=== PATIENT | male | born 1965 | race Caucasian/White ===

== ENCOUNTER → 2018-10-29 11:26 | Outpatient (CLI) | payer BC, SELFPAY ==
[2018-10-29 14:21] LABS: Basophils # 0.1 K/mm3 (0-0.2); Basophils % 0.6 % (0.1-2.0); Eosinophils # 0.1 K/mm3 (0.0-0.4); Eosinophils % 1.2 % (0.1-12.0); Hematocrit 44.9 % (42.0-52.0); Hemoglobin 14.6 g/dL (14.1-18.0); Lymphocytes # 2.6 K/mm3 (0.7-4.5); Mean Corpuscular HGB Conc 32.6 g/dL (31.8-35.4); Mean Corpuscular Hemoglobin 26.1 pg (27.0-31.2); Mean Corpuscular Volume 80.1 fl (80-94); Mean Platelet Volume 7.4 fl (7.4-10.4); Monocytes # 0.5 K/mm3 (0.1-1.0); Monocytes % 4.9 % (1.7-9.3); Neutrophils # 6.3 K/mm3 (1.8-7.8); Neutrophils % 66.2 % (37.0-80.0); Platelet Count 350 K/mm3 (142-424); White Blood Count 9.5 K/mm3 (4.8-10.8)
[2018-10-29 14:26] LABS: Alanine Aminotransferase 67 U/L (12-78); Albumin Level 4.3 gm/dL (3.4-5.0); Albumin/Globulin Ratio 1.1 (1.1-1.8); Alkaline Phosphatase 97 U/L (46-116); Anion Gap 14.9 mEq/L (5-15); Aspartate Amino Transferase 24 U/L (15-37); Bilirubin,Total 0.6 mg/dL (0.2-1.0); Blood Urea Nitrogen 16 mg/dL (7-18); Calcium 9.3 mg/dL (8.5-10.1); Carbon Dioxide 28 mmol/L (21.0-32.0); Chloride 103 mmol/L (98-107); Chol/HDL Ratio 3.1 (1-3.5); Cholesterol 116 mg/dL (140-200); Creatinine,Serum 1.19 mg/dL (0.70-1.30); Estimated Glomerular Filt Rate 63 ml/min (>60); GFR (African American) 77 ML/MIN (>60); Globulin 3.8 gm/dl (1.3-3.2); Glucose 105 mg/dL (74-106); HDL Cholesterol 38 mg/dL (27-67); LDL Cholesterol 52 mg/dL (0-130); Potassium 4.9 mmoL/L (3.5-5.1); Sodium 141 mmol/L (136-145); Thyroid Stimulating Hormone 1.67 uIU/ml (0.358-3.740); Total Protein,Serum 8.1 gm/dL (6.4-8.2); Triglycerides 128 mg/dL (30-200); VLDL Cholesterol 26 mg/dL (0-40)
[2018-10-29 14:42] LABS: Troponin I < 0.02 ng/ml (0.00-0.06)
[2018-10-31 21:30] LABS: Vitamin B12 734 pg/mL (232-1245)
[2018-11-01 10:53] LABS: Vitamin D 25 Hydroxy 40.1 ng/mL (30.0-100.0)
== END ==
PROVIDERS: PCP Nurse Practitioner Family; Visit Provider Nurse Practitioner Family
DX: Z00.00 Encounter for general adult medical examination without abnormal findings (principal); R07.9 Chest pain, unspecified; R53.83 Other fatigue; I10 Essential (primary) hypertension
CPT/HCPCS: 80053; 80061; 82607; 82652; 84443; 84484; 85025

== ENCOUNTER → 2019-05-31 09:30 | Outpatient (CLI) | payer BC, SELFPAY ==
[2019-05-31 11:38] LABS: Ferritin 132 ng/mL (8-388)
== END ==
PROVIDERS: Visit Provider Nurse Practitioner Family
DX: E83.10 Disorder of iron metabolism, unspecified (principal); G47.33 Obstructive sleep apnea (adult) (pediatric)
CPT/HCPCS: 36415; 82728

== ENCOUNTER → 2020-03-07 07:02 | Outpatient (CLI) | payer BC, SELFPAY ==
[2020-03-07 14:26] LABS: Chloride 106 mmol/L (98-107); Sodium 140 mmol/L (136-145)
[2020-03-07 14:27] LABS: Potassium 4.4 mmoL/L (3.5-5.1)
[2020-03-07 14:29] LABS: Alanine Aminotransferase 47 U/L (12-78); Albumin Level 4.1 g/dl (3.5-5.0); Albumin/Globulin Ratio 1.4 (1.1-1.8); Alkaline Phosphatase 77 U/L (38-126); Anion Gap 14.4 mEq/L (5-15); Aspartate Amino Transferase 33 U/L (17-59); Bilirubin,Total 0.4 mg/dl (0.2-1.3); Blood Urea Nitrogen 17 mg/dl (9-20); Carbon Dioxide 24 mmol/L (22.0-30.0); Cholesterol 121 mg/dl (140-200); Estimated Glomerular Filt Rate 87 ml/min (>60); GFR (African American) 106 ML/MIN (>60); Total Protein,Serum 7.1 g/dl (6.3-8.2); Triglycerides 152 mg/dl (30-150); VLDL Cholesterol 30 mg/dL (0-40)
[2020-03-07 14:30] LABS: Calcium 9.2 mg/dl (8.4-10.2); Chol/HDL Ratio 3.7 (1-3.5); Glucose 116 mg/dl (74-100); HDL Cholesterol 33 mg/dl (40-60)
[2020-03-07 14:39] LABS: Basophils # 0.1 K/mm3 (0-0.2); Basophils % 0.9 % (0.1-2.0); Eosinophils # 0.2 K/mm3 (0.0-0.4); Eosinophils % 2.8 % (0.1-12.0); Hematocrit 41.1 % (42.0-52.0); Lymphocytes # 2.8 K/mm3 (0.7-4.5); Lymphocytes % 39.8 % (10-50); Mean Corpuscular HGB Conc 34.1 g/dL (31.8-35.4); Mean Corpuscular Volume 82.1 fl (80-94); Mean Platelet Volume 8.6 fl (7.4-10.4); Monocytes # 0.4 K/mm3 (0.1-1.0); Monocytes % 5.1 % (1.7-9.3); Neutrophils # 3.6 K/mm3 (1.8-7.8); Neutrophils % 51.5 % (37.0-80.0); Platelet Count 336 K/mm3 (142-424); Red Blood Count 5.01 M/mm3 (4.60-6.20); Red Cell Distribution Width 13.9 % (11.5-17.5)
[2020-03-07 14:40] LABS: Direct LDL Cholesterol 63.19 mg/dL (100-129)
[2020-03-07 14:58] LABS: Thyroid Stimulating Hormone 1.82 uIU/mL (0.465-4.68)
[2020-03-07 16:08] LABS: 25-OH Vitamin D, Total 31.3 ng/mL (30-100)
[2020-03-08 14:46] LABS: Hemoglobin A1C 5.8 % (4.0-6.0)
[2020-03-09 14:15] LABS: Vitamin B12 711 pg/mL (232-1245)
== END ==
PROVIDERS: Visit Provider Nurse Practitioner Family
DX: R53.83 Other fatigue (principal); E78.2 Mixed hyperlipidemia
CPT/HCPCS: 36415; 80053; 80061; 82306; 82607; 83036; 84443; 85025

== ENCOUNTER → 2020-03-08 07:11 | Outpatient (CLI) | payer BC, SELFPAY ==
--- NOTE | 2020-03-08 | CA_ITS ---
APPROVED REPORT Exam: Exercise Treadmill Technologist: Radha Siddiqui, Ht: 6 ft 2 in Wt: 218 lbs BSA: 2.25 m2 HR: 53 bpm BP: 137/73 mmHg Rhythm: SINUS BRADYCARDIA,RAD,ST-T ABNS IN III AND aVF Medical History Medical History: HTN, Hyperlipidemia Medications: Amlodipine,,,,, Asa,,,,, Atorvastatin,,,,, Fexofenadine,,,,, Allergies: CONTRAST MEDIA Cardiac Risk Factors: HTN, Hyperlipidemia, FHX of CAD Stress Test Details Test: Ze HR Resting HR: 72 bpm Max Heart Rate (APMHR): 164 bpm Max HR Achieved: 157 bpm Target HR (85% APMHR): 139 bpm % of APMHR: 95 Recovery HR: 124 bpm BP Resting BP: 137.0/73.0 mmHg Max BP: 210.0/70.0 mmHg Recovery BP: 208.0/76.0 mmHg ECG Resting ECG: SINUS BRADYCARDIA,RAD,ST-T ABNS IN III AND aVF Clinical Exercise duration: 10:01 min Highest Stage Achieved: Exercise capacity: 12.8 METs Stress ECG Conclusion PATIENT EXERCISED 10:00 ON EZ PROTOCOL WITH MAX HEART RATE 142 BPM WHICH IS 87% OF PM FOR AGE. MAX BP 210/70. METS = 12.8. TEST STOPPED DUE TO SOA AND FATIGUE. NO CHEST PAIN. OCCASIONAL PAC. ONE RUN OF NONSUSTAINED SVT IN RECOVERY. APPROX 1-1.[address] DEPRESSION LATERALLY. BORDERLINE POSITIVE EKG CHANGES FOR ISCHEMIA. MYOVIEW IMAGES REPORTED SEPARATELY. Test Summary REST . . . . . . . Standing REST . . . . . . . Sitting REST 04:42 0.0 0.0 72 . 137/ 73 . . Stage 1 01:00 10.0 1.7 91 . . . . Stage 1 02:00 10.0 1.7 88 . . . . Stage 1 03:00 10.0 1.7 90 . 150/ 70 . . Stage 2 01:00 12.0 2.5 99 . . . . Stage 2 02:00 12.0 2.5 102 . . . . Stage 2 03:00 12.0 2.5 109 . 165/ 65 . . Stage 3 01:00 14.0 3.4 119 . . . . Stage 3 02:00 14.0 3.4 124 . . . . Stage 3 . . . . . . . Cardiolite injected Stage 3 03:00 14.0 3.4 127 . 210/ 70 . . Stage 4 01:00 16.0 4.2 142 . . . . Stage 4 01:01 16.0 4.2 142 . . . Stop exercise at 10:01 RECOVERY 01:00 0.0 0.0 115 . 208/ 76 . . RECOVERY 02:00 0.0 0.0 82 . 208/ 76 . . RECOVERY 03:00 0.0 0.0 72 . 173/ 71 . . RECOVERY 04:00 0.0 0.0 70 . 146/ 72 . . RECOVERY 05:00 0.0 0.0 66 . 146/ 72 . . RECOVERY 05:22 0.0 0.0 67 . 132/ 74 . . Electronically signed by : Irvin Arevalo, 03/08/2020 14:11:24
--- NOTE | 2020-03-08 07:16 | NM_ITS ---
APPROVED REPORT Exam: Nuclear Stress Test Indication: short of breath..fatigue Patient Location: Outpatient Stress Tech: Zeinab Artur [place] Tech:Alejandrina Key MARY ANNE RT(R)(N) Ht: 6 ft 2 in Wt: 218 lbs HR: 53 bpm BP: 137/73 mmHg BSA: 2.25 m2 BMI: 27.9 History: short of breath..fatigue Procedure: Patient exercised on Ze protocol 10.0 minutes and sec, resting heart rate 53 bpm, resting blood pressure 137/73 mmHg, with exercise maximum heart rate achived was 157 bpm which is Greater than 85 % of the maximum predicted heart rate and blood pressure was 208/76 mmHg. Patient denied any complaint of chest pain. Patient has good exercise capacity, achieved 12.8 METs of workload on treadmill, the blood pressure response to exercise was Hypertensive. Electrocardiogram Resting electrocardiogram showed sinus rhythm, with exercise there is [address] segment depression noted from the baseline EKG. The EKG portion of the exercise Myoview is positive for ischemia. Cardiac Stress and Resting SPECT Images: Cardiac Stress and Resting SPECT images were obtained using technetium 99m Myoview 31.3 mCi stress and 10.78 mCi at rest. Gated SPECT with analysis of segmental wall motion and calculation of the ejection fraction also done. Cardiac stress and resting SPECT images show a mild fixed defect in the inferior wall with normal coronary gated SPECT is likely secondary to soft tissue attenuation, no reversible ischemia seen. Computer derived ejection fraction is 51% with no regional wall motion abnormality, right ventricle is normal size and contractility. Conclusion: 1. The EKG portion of the exercise Myoview is positive for ischemia, patient has good exercise capacity achieved 12.8 mets of workload on treadmill, the blood pressure response to exercise was hypertensive, there was no exercise-induced chest discomfort. 2. No scintigraphic evidence of reversible ischemia seen at this level of exercise, computer derived ejection fraction is 51% with no regional wall motion abnormality, right ventricle is normal size and contractility. Electronically signed by : Irvin Arevalo, 03/08/2020 14:15:31
--- NOTE | 2020-03-08 12:44 | HMH.ITSHM ---
Current Home Medications as stated by this patient Anshul Luciano or international account representative. [] amlodipine atorvastatin asa
== END ==
PROVIDERS: PCP Internal Medicine Adolescent Medicine; Visit Provider Nurse Practitioner Family
DX: R06.02 Shortness of breath (principal); R53.83 Other fatigue
CPT/HCPCS: 78452; 93017; A9502

== ENCOUNTER → 2020-05-29 07:42 | Outpatient (CLI) | payer BC, SELFPAY ==
[2020-05-29 07:57] LABS: Basophils # 0.1 K/mm3 (0-0.2); Eosinophils # 0.2 K/mm3 (0.0-0.4); Eosinophils % 2.9 % (0.1-12.0); Hematocrit 43.4 % (42.0-52.0); Hemoglobin 14.3 g/dL (14.1-18.0); Lymphocytes # 2.4 K/mm3 (0.7-4.5); Lymphocytes % 39.5 % (10-50); Mean Corpuscular HGB Conc 32.9 g/dL (31.8-35.4); Mean Corpuscular Hemoglobin 27.5 pg (27.0-31.2); Mean Corpuscular Volume 83.6 fl (80-94); Mean Platelet Volume 7.5 fl (7.4-10.4); Monocytes # 0.3 K/mm3 (0.1-1.0); Monocytes % 4.8 % (1.7-9.3); Neutrophils # 3.2 K/mm3 (1.8-7.8); Neutrophils % 51.7 % (37.0-80.0); Platelet Count 313 K/mm3 (142-424); Red Cell Distribution Width 14.2 % (11.5-17.5); White Blood Count 6.2 K/mm3 (4.8-10.8)
[2020-05-29 08:57] LABS: Alanine Aminotransferase 47 U/L (12-78); Albumin Level 4.4 g/dl (3.5-5.0); Albumin/Globulin Ratio 1.4 (1.1-1.8); Alkaline Phosphatase 80 U/L (38-126); Aspartate Amino Transferase 34 U/L (17-59); Bilirubin,Total 0.6 mg/dl (0.2-1.3); Blood Urea Nitrogen 15 mg/dl (9-20); Calcium 9.6 mg/dl (8.4-10.2); Carbon Dioxide 27 mmol/L (22.0-30.0); Chloride 106 mmol/L (98-107); Chol/HDL Ratio 3.3 (1-3.5); Cholesterol 122 mg/dl (140-200); Estimated Glomerular Filt Rate 77 ml/min (>60); GFR (African American) 94 ML/MIN (>60); Globulin 3.1 g/dL (1.3-3.2); Glucose 111 mg/dl (74-100); HDL Cholesterol 37 mg/dl (40-60); Sodium 142 mmol/L (136-145); Total Protein,Serum 7.5 g/dl (6.3-8.2); Triglycerides 113 mg/dl (30-150); VLDL Cholesterol 23 mg/dL (0-40)
[2020-05-29 09:08] LABS: Direct LDL Cholesterol 64.54 mg/dL (100-129)
[2020-05-29 09:13] LABS: 25-OH Vitamin D, Total 37.9 ng/mL (30-100)
[2020-05-29 09:14] LABS: Free T4 (Free Thyroxine) 0.81 ng/dl (0.78-2.19)
[2020-05-29 09:29] LABS: Prostate Specific Ag Screen 1.1 ng/ml (0.0-4.0); Thyroid Stimulating Hormone 1.81 uIU/mL (0.465-4.68)
[2020-05-29 09:40] LABS: Hemoglobin A1C 5.6 % (4.0-6.0)
[2020-05-29 09:46] LABS: Vitamin B12 785 pg/mL (239-931)
[2020-05-29 09:58] LABS: Iron 62 ug/dL (49-181)
[2020-05-29 10:07] LABS: Total Iron Binding Capacity 353 ug/dL (261-462)
== END ==
PROVIDERS: Visit Provider Physician Assistant Medical
DX: R06.02 Shortness of breath (principal)
CPT/HCPCS: 36415; 80053; 80061; 82306; 82607; 83036; 83540; 83550; 84439; 84443; 85025; G0103

== ENCOUNTER → 2020-06-29 15:00 | Outpatient (CLI) | payer BC, SELFPAY | PROVIDERS: PCP Internal Medicine Adolescent Medicine; Visit Provider Specialist | DX: G47.33 Obstructive sleep apnea (adult) (pediatric) (principal) | CPT/HCPCS: G0399 ==

== ENCOUNTER 2023-09-28 10:46 | Emergency (ER) | payer BC, SELFPAY ==
--- NOTE | 2023-09-28 11:34 | ED_ITS ---
Discharge Plan Disposition Patient Disposition: Home, Self-Care Condition: Good Prescriptions Prescriptions: New azithromycin [Zithromax] 250 mg tablet 250 mg PO UD DOSE PK Qty: 6 0RF Rx Instructions: Take two (2) tablets today, then one (1) tablet days #2 thru #5 benzonatate [benzonatate] 100 mg capsule 100 mg PO TIDP PRN (Reason: Cough) Qty: 30 0RF methylprednisolone 4 mg Tablets,Dose Pack 4 mg PO DIRECTED 6 Days Qty: 21 0RF Rx Instructions: Take 1 pack as directed for 6 days guaifenesin [Mucinex] 600 mg tablet extended release 12hr 600 - 1,200 mg PO BIDP PRN (Reason: Congestion) Qty: 30 0RF No Action fexofenadine [Shanti Allergy] 180 mg tablet 180 mg PO DAILY propranolol 10 mg tablet 10 mg PO TID PRN (Reason: blood pressure ) valsartan 320 mg tablet 320 mg PO DAILY multivitamin Tablet 1 tab PO DAILY psyllium husk [Metamucil] 0.4 gram capsule 0.4 g PO DAILY amlodipine 10 mg tablet 10 mg PO DAILY aspirin 81 mg tablet,delayed release (DR/EC) 81 mg PO DAILY vitamin E (dl, acetate) 180 mg (400 unit) capsule 180 mg PO DAILY Repatha SureClick 140 mg/mL pen injector 140 mg SQ Q2W Referrals Follow up/Referrals: Edmundo Crane [Primary Care Provider] - See instructions Activity Restrictions/Add. Instructions Additional Instructions/Restrictions: Drink plenty of fluids. Take tylenol or ibuprofen for pain or fever. Take the medications as directed. Follow up with your regular doctor. GO TO THE ER FOR ANY WORSENING SYMPTOMS Clinical Impressions Clinical Impression: Sinusitis, Acute viral syndrome Stand Alone Forms Stand Alone Forms: Work/School Release Instructions Patient Instructions: Sinusitis, DI for Sinusitis Discharge ED Provider: Faizan Bellamy [facility] [place] HPI General Stated complaint: congestion body aches, sore throat Time Seen by Provider: 09/28/23 11:34 History of Present Illness Provider Complaint: He states that for the past 2 days he has had sore throat, sinus congestion, body aches, chest congestion and malaise. Related Data Home Medications Medication Instructions Recorded Confirmed fexofenadine 180 mg tablet 180 mg PO DAILY 05/31/19 09/28/23 (Shanti Allergy) amlodipine 10 mg tablet 10 mg PO DAILY HTN 04/23/22 09/28/23 aspirin 81 mg tablet,delayed 81 mg PO DAILY 04/23/22 09/28/23 release evolocumab 140 mg/mL subcutaneous 140 mg SQ Q2W HLD 04/23/22 09/28/23 pen injector (Bradly Pedrozaick) multivitamin 1 tab PO DAILY 04/23/22 09/28/23 propranolol 10 mg tablet 10 mg PO TID PRN blood pressure 04/23/22 09/28/23 psyllium husk 0.4 gram capsule 0.4 g PO DAILY 04/23/22 09/28/23 (Metamucil) valsartan 320 mg tablet 320 mg PO DAILY HTN 04/23/22 09/28/23 vitamin E (dl, acetate) 180 mg 180 mg PO DAILY 04/23/22 09/28/23 (400 unit) capsule Previous Rx's Medication Instructions Recorded azithromycin 250 mg tablet 250 mg PO UD DOSE PK #6 tabs 09/28/23 (Zithromax) benzonatate 100 mg capsule 100 mg PO TIDP PRN Cough #30 caps 09/28/23 guaifenesin 600 mg tablet, 600 - 1,200 mg PO BIDP PRN 09/28/23 extended release 12 hr (Mucinex) Congestion #30 tabs methylprednisolone 4 mg tablets in 4 mg PO DIRECTED 6 days #21 tabs 09/28/23 a dose pack Allergies Allergy/AdvReac Type Severity Reaction Status Date / Time Iodinated Contrast Media Allergy Unknown Verified 09/28/23 11:57 [Iodinated Contrast- Oral and IV Dye] [facility] Disclaimer: The information contained in this section may have been updated after the patient was seen, as this information can be updated by other users. Medical History Hyperlipidemia Hypertension Family History Grandfather Cancer Social History Smoking Status: Never smoker alcohol intake: current substance use type: denies use current occupational status: employed Travel in the last 8 weeks: [place] the [place] household members: none housing: house ROS Obtained: Yes All systems reviewed & no additional complaints except as documented Constitutional Constitutional: Reports poor appetite Eyes Eyes: Reports system reviewed and no additional complaints, except as documented ENT Ears, Nose, Mouth, and Throat: Reports as per HPI Cardiovascular Cardiovascular: Reports system reviewed and no additional complaints, except as documented and Denies chest pain Respiratory Respiratory: Denies shortness of breath, Denies chest congestion, Reports cough, Denies stridor and Denies wheezing Gastrointestinal Gastrointestingal: Reports system reviewed and no additional complaints, except as documented; Denies abdominal pain, diarrhea or vomiting Musculoskeletal Musculoskeletal: Reports system reviewed and no additional complaints, except as documented and Denies arthralgias Integumentary/Breasts Skin/Breast: Reports system reviewed and no additional complaints, except as documented and Denies rash Neurologic Neurologic: Denies paresthesias Allergic/Immunologic Allergic/Immunologic: Denies wheezing Physical Exam General General appearance: alert and in no apparent distress Eye Eye exam: Present normal appearance, PERRL and EOMI ENT ENT exam: Present mucous membranes moist and normal external ear exam Expanded ENT Exam External ear exam: Present normal external inspection TM/Canal exam: Bilateral TM: erythema and bulging Nose exam: Absent sinus tenderness Nasal speculum exam: Bilateral: normal Mouth exam: Present normal external inspection; Absent drooling Teeth exam: Present normal inspection Throat exam: Present tonsillar erythema and tonsillomegaly Neck Neck exam: Present normal inspection, full ROM and trachea midline; Absent tenderness, lymphadenopathy or thyromegaly Chest Chest inspection: Present normal inspection and symmetric chest wall rise; Absent tenderness or rash Respiratory Respiratory exam: Present normal lung sounds bilaterally; Absent respiratory distress, wheezes, stridor or accessory muscle use Cardiovascular Cardiovascular exam: Present regular rate, normal rhythm and normal heart sounds Abdominal Exam Abdominal exam: Present soft; Absent distention, tenderness, guarding, rebound or rigidity Extremities Exam Extremities exam: Present normal inspection, full ROM and normal capillary refill; Absent tenderness or calf tenderness Back Exam Back exam: Present normal inspection and full ROM; Absent tenderness Neurological Exam Neurological exam: Present alert and oriented X3 Psychiatric Psychiatric exam: Present normal affect and normal mood Skin Skin exam: Present warm, dry, intact and normal color Lymphatic Lymphatic Findings: no adenopathy Medical Decision Making Medical Records Medical records reviewed: No I reviewed the patient's medical records. Vincent Inquiry Pt receiving controlled substance: No Lab Data Lab results reviewed: Yes I reviewed the patient's lab results.
[2023-09-28 11:40] VITALS: BP 150/82; PULSE 107; RESP 18; TEMP 36.7; O2SAT 98; BMI 29.0
[2023-09-28 12:04] LABS: UTC Influenza A Antigen Negative (Negative); UTC Strep Screen (Rapid) Negative (Negative)
[2023-09-28 12:05] LABS: UTC Influenza B Antigen Negative (Negative)
[2023-09-28 12:19] LABS: Coronavirus 19, PCR Not Detected (NotDetected); Influenza A, PCR Not Detected (NotDetected); Influenza B, PCR Not Detected (NotDetected)
[2023-09-28 12:33] VITALS: BP 150/82; PULSE 107; RESP 18; TEMP 36.7; O2SAT 98
== END 2023-09-28 12:33 | disposition home or self-care (01) ==
PROVIDERS: Emergency Provider Nurse Practitioner Family; PCP Internal Medicine
DX: J01.90 Acute sinusitis, unspecified (principal); R07.0 Pain in throat; R05.9 Cough, unspecified; R09.81 Nasal congestion; M79.18 Myalgia, other site; I10 Essential (primary) hypertension; E78.5 Hyperlipidemia, unspecified
CPT/HCPCS: 87636; 87804; 87880; 99204; 99212; G0463

== ENCOUNTER 2024-04-09 10:33 | Emergency (ER) | payer BC, SELFPAY ==
[2024-04-09 11:25] VITALS: BP 136/68; PULSE 92; RESP 20; TEMP 37.1; O2SAT 95; BMI 29.6
--- NOTE | 2024-04-09 11:35 | ED_ITS ---
Discharge Plan Disposition Patient Disposition: Home, Self-Care Condition: Good Prescriptions Prescriptions: No Action fexofenadine [Shanti Allergy] 180 mg tablet 180 mg PO DAILY propranolol 10 mg tablet 10 mg PO TID PRN (Reason: blood pressure ) valsartan 320 mg tablet 320 mg PO DAILY amlodipine 10 mg tablet 10 mg PO DAILY aspirin 81 mg tablet,delayed release (DR/EC) 81 mg PO DAILY Repatha SureClick 140 mg/mL pen injector 140 mg SQ Q2W Referrals Follow up/Referrals: Edmundo Crane [Primary Care Provider] - See instructions Activity Restrictions/Add. Instructions Additional Instructions/Restrictions: covid swab was sent to lab, call later today for results. self isolate until test results are known to be negative No sign of a bacterial infection. Likely viral. Viruses can take 7-14 days to run their course. Nasal saline and bulb syringe or nose Maricel to remove nasal drainage to help with nasal congestion. Hard to eat, drink, sleep with nasal congestion so important to keep this cleaned out. Monitor temp. Tylenol or Motrin as needed for pain or fever Encourage fluids, water, Gatorade, Powerade, Pedialyte if infant/toddler/child Warm salt water gargles Warm fluids Sore throat lozenges Sleep elevated Humidifier/vaporizer Follow-up immediately for new or worsening symptoms or no noticeable improvement over the next 48-72 hours. Instructions Patient Instructions: DI for Viral Upper Respiratory Infection -- Adult Print Language Print Language: Georgian Discharge ED Provider: Nellie ([facility] [place])Tee [facility] [place] HPI General Stated complaint: body aches, xavier, fever Mode of Arrival: Ambulatory Source of Information: Patient Limitations: No Limitations Time Seen by Provider: 04/09/24 11:35 Description of Symptoms (Recalled from Triage Doc. by RN): PATIENT C/O SINUS AND CHEST CONGESTION, BODY ACHES, COUGH, SORE THROAT, CHILLS, AND LOW-GRADE FEVER SINCE YESTERDAY AFTERNOON HEENT Symptoms (Recalled from RN notes): Yes Resp Symptoms (Recalled from RN notes): Yes Skin Symptoms (Recalled from RN notes): No MS Symptoms (Recalled from RN notes): No Functional Status (Recalled from RN notes): WNL History of Present Illness Provider Complaint: 58-year-old male presents for complaints of sinus and chest congestion, body aches, cough, sore throat, chills, and low-grade fever since yesterday afternoon. Related Data Home Medications ?Medication ?Instructions ?Recorded ?Confirmed fexofenadine 180 mg tablet 180 mg PO DAILY 05/31/19 04/09/24 (Shanti Allergy) amlodipine 10 mg tablet 10 mg PO DAILY HTN 04/23/22 04/09/24 aspirin 81 mg tablet,delayed 81 mg PO DAILY 04/23/22 04/09/24 release evolocumab 140 mg/mL subcutaneous 140 mg SQ Q2W HLD 04/23/22 04/09/24 pen injector (Repatha SureClick) propranolol 10 mg tablet 10 mg PO TID PRN blood pressure 04/23/22 04/09/24 valsartan 320 mg tablet 320 mg PO DAILY HTN 04/23/22 04/09/24 Allergies Allergy/AdvReac Type Severity Reaction Status Date / Time Iodinated Contrast Media Allergy Unknown Verified 09/28/23 11:57 [Iodinated Contrast- Oral and IV Dye] Worker's Comp Is this a Worker's Comp case?: No [facility] Disclaimer: The information contained in this section may have been updated after the patient was seen, as this information can be updated by other users. Medical History , BUSINESS OFFICE SPECIALIST) Hypertension Hyperlipidemia Family History , BUSINESS OFFICE SPECIALIST) Cancer Grandfather Social History , BUSINESS OFFICE SPECIALIST) Smoking Status: Never smoker alcohol intake: current alcohol intake frequency: holidays/special occasions only substance use type: denies use current occupational status: employed Travel in the last 8 weeks: [place] the [place] household members: none housing: house ROS Obtained: Yes Systems reviewed as appropriate & no additional complaints except as documented Physical Exam General General appearance: alert and in no apparent distress Head Head exam: atraumatic, normocephalic and normal inspection Eye Eye exam: Present normal appearance and PERRL ENT ENT exam: Present mucous membranes moist and TM's normal bilaterally Expanded ENT Exam Nose exam: Present sinus tenderness Throat exam: Present tonsillar erythema Neck Neck exam: Present normal inspection and full ROM; Absent meningismus or lymphadenopathy Chest Chest inspection: Absent tenderness Respiratory Respiratory exam: Present normal lung sounds bilaterally; Absent respiratory distress Cardiovascular Cardiovascular exam: Present regular rate and normal rhythm; Absent JVD Abdominal Exam Abdominal exam: Present soft and normal bowel sounds; Absent distention, tenderness or guarding Extremities Exam Extremities exam: Present normal inspection, full ROM and normal capillary refill; Absent calf tenderness Back Exam Back exam: Present normal inspection; Absent tenderness Neurological Exam Neurological exam: Present alert and oriented X3 Psychiatric Psychiatric exam: Present normal affect and normal mood Skin Skin exam: Present warm, dry, intact and normal color Lymphatic Lymphatic Findings: no adenopathy Medical Decision Making Medical Records Medical records reviewed: Yes I reviewed the patient's medical records. Vincent Inquiry Pt receiving controlled substance: No Vincent was queried for this patient: No Vital Signs: 04/09/24 11:25 Temperature 98.8 F Temperature Source Oral Pulse Rate [Left Brachial] 92 H Respiratory Rate 20 Blood Pressure [Left Arm] 136/68 Blood Pressure Mean [Left Arm] 90 Blood Pressure Source [Left Arm] Automatic Cuff Blood Pressure Position [Left Arm] Sitting 02 Sat by Pulse Oximetry 95 Oxygen Delivery Method Room Air Lab Data Lab results reviewed: Yes I reviewed the patient's lab results.
[2024-04-09 11:48] LABS: UTC Strep Screen (Rapid) Negative (Negative)
[2024-04-09 11:57] VITALS: BP 136/68; PULSE 92; RESP 20; TEMP 37.1; O2SAT 95
[2024-04-09 15:41] LABS: Coronavirus 19, PCR Detected (NotDetected); Influenza A, PCR Not Detected (NotDetected); Influenza B, PCR Not Detected (NotDetected)
== END 2024-04-09 12:00 | disposition home or self-care (01) ==
PROVIDERS: Emergency Provider Nurse Practitioner Family; PCP Internal Medicine
DX: U07.1 COVID-19 (principal); R50.9 Fever, unspecified; R05.9 Cough, unspecified; R07.0 Pain in throat
CPT/HCPCS: 87636; 87880; 99212; 99213; G0463

== ENCOUNTER 2024-06-16 14:09 | Outpatient (CLI) | payer BC, SELFPAY ==
[2024-06-16 14:18] LABS: Basophils # 0.1 K/mm3 (0-0.2); Basophils % 1.3 % (0.1-2.0); Eosinophils # 0.2 K/mm3 (0.0-0.4); Eosinophils % 2.5 % (0.1-12.0); Hematocrit 44.5 % (42.0-52.0); Hemoglobin 15.2 g/dL (14.1-18.0); Lymphocytes # 3.1 K/mm3 (0.7-4.5); Mean Corpuscular HGB Conc 34.1 g/dL (31.8-35.4); Mean Corpuscular Hemoglobin 28.5 pg (27.0-31.2); Mean Corpuscular Volume 83.5 fl (80-94); Mean Platelet Volume 7.5 fl (7.4-10.4); Monocytes # 0.5 K/mm3 (0.1-1.0); Neutrophils # 4.2 K/mm3 (1.8-7.8); Neutrophils % 52.1 % (37.0-80.0); Platelet Count 376 K/mm3 (142-424); Red Blood Count 5.33 M/mm3 (4.60-6.20); Red Cell Distribution Width 15.3 % (11.5-17.5); White Blood Count 8.1 K/mm3 (4.8-10.8)
[2024-06-16 14:34] LABS: Albumin Level 4.8 g/dl (3.5-5.0); Chloride 103 mmol/L (98-107)
[2024-06-16 14:35] LABS: Potassium 4.5 mmoL/L (3.5-5.1); Sodium 142 mmol/L (136-145)
[2024-06-16 14:37] LABS: Alanine Aminotransferase 38 U/L (12-78); Aspartate Amino Transferase 30 U/L (17-59); Blood Urea Nitrogen 14 mg/dl (9-20); Estimated Glomerular Filt Rate 68 ml/min (>60); GFR (African American) 83 ML/MIN (>60)
[2024-06-16 14:38] LABS: Albumin/Globulin Ratio 1.4 (1.1-1.8); Alkaline Phosphatase 78 U/L (38-126); Anion Gap 15.5 mEq/L (5-15); Bilirubin,Total 0.7 mg/dl (0.2-1.3); Calcium 9.8 mg/dl (8.4-10.2); Carbon Dioxide 28 mmol/L (22.0-30.0); Chol/HDL Ratio 2.8 (1-3.5); Cholesterol 110 mg/dl (140-200); Globulin 3.4 g/dL (1.3-3.2); Glucose 98 mg/dl (74-100); HDL Cholesterol 40 mg/dl (40-60); Total Protein,Serum 8.2 g/dl (6.3-8.2); Triglycerides 381 mg/dl (30-150); VLDL Cholesterol 76 mg/dL (0-40)
[2024-06-16 14:50] LABS: Direct LDL Cholesterol < 30.00 mg/dL (100-129)
[2024-06-16 15:50] LABS: Prostate Specific Ag Screen 1.3 ng/ml (0.0-4.0)
[2024-06-17 08:21] LABS: Testosterone,Total 239 ng/dL (264-916)
== END 2024-06-16 23:59 | disposition home or self-care (01) ==
LOC: LAB.DROPOF 14:09
PROVIDERS: PCP Internal Medicine; Visit Provider Internal Medicine
DX: E78.5 Hyperlipidemia, unspecified (principal); R68.82 Decreased libido; R23.2 Flushing; R53.83 Other fatigue; I10 Essential (primary) hypertension; Z12.5 Encounter for screening for malignant neoplasm of prostate; N40.1 Benign prostatic hyperplasia with lower urinary tract symptoms
CPT/HCPCS: 80053; 80061; 84403; 85025; G0103

== ENCOUNTER 2024-08-09 09:23 | Day surgery (SDC) | payer BC, SELFPAY ==
[2024-08-03 17:14] VITALS: BMI 30.8
[2024-08-09] MEDS: LACTATED RINGERS 1000ML 1,000 ML 25 ML IV (09:42)
[2024-08-09 09:43] VITALS: BP 151/74; PULSE 65; RESP 16; TEMP 36.4; O2SAT 95
--- NOTE | 2024-08-09 09:45 | HMH.SCOPE ---
Procedure: Date: 08/09/24 Patient Date of :: 1965 Procedure Performed:: Colonoscopy with polypectomy by means other than snare Indications:: History of colon polyps Bleeding hemorrhoids Forwarded from office visit dated 07/06/2024: The patient returns for reevaluation regarding bleeding hemorrhoids. He believes that he is just slightly better on current medical management. He states that he still has some bleeding and prefers to proceed with evaluation. His most recent colonoscopy was approximately 4 years ago at which time a polyp was removed per his report. Forwarded from June 22, 2024 note: This is a 58-year-old gentleman seen in consultation from his primary care provider for evaluation regarding bleeding hemorrhoids. He has a long history of hemorrhoids with intermittent bleeding; however, the volume of bleeding has increased over the past few months and is now more persistent. Recent laboratory evaluation revealed a hemoglobin of 15.2. No significant associated hemorrhoidal pain. Performing Provider:: Pradeep George MD Referring Provider:: . Sedation:: Monitored anesthesia care Procedure:: After informed consent was obtained the patient was taken to the endoscopy suite. Sedation ensued after the patient was transferred to the left lateral decubitus position. Pulse, blood pressure, and oxygen saturation were monitored throughout the procedure. Digital rectal exam revealed no significant abnormality. The colonoscope was placed in position. The entire colon was evaluated. The colonoscope was carefully removed and the patient was transferred to recovery in stable condition. Please see findings and specimens below for detail. Findings:: Bowel preparation fair to moderate Fairly profound spasticity/lack of relaxation Significant sigmoid tortuosity Unchanged diverticulosis Circumferential hemorrhoidal tags/hemorrhoidal cushions with internal/external component (no current thrombosis and no current bleeding) Polyps (see specimens) Specimens:: Adjacent proximal transverse colon polyps (cold biopsy forceps) Adjacent distal transverse colon polyps (cold biopsy forceps Recommendations:: Timing of repeat colonoscopy is pending pathology but will likely be around 2-3 years secondary to fair to moderate bowel preparation, spasticity/lack of relaxation, tortuosity, and history of polyps. Complications:: No immediate Estimated blood obtained (mL): 1 Colonoscopy Component Colonoscopy Component Was a colonoscopy performed during today's procedure?: Yes Recommended follow up colonoscopy of at least 10 years?: No If no, follow up colonoscopy recommended in ___ years?: (See above) Reason for not recommending >/= 10 yr follow-up interval?: (See above)
--- NOTE | 2024-08-09 09:53 | P.PNANES_ITS ---
[facility] Disclaimer: The information contained in this section may have been updated after the patient was seen, as this information can be updated by other users. Medical History History of BPH History of diverticulitis Hypertension Hyperlipidemia Surgical History History of colonoscopy Family History Grandfather Cancer Social History Smoking Status: Never smoker alcohol intake: current alcohol intake frequency: holidays/special occasions only substance use type: denies use current occupational status: employed Travel in the last 8 weeks: [place] the [place] household members: none housing: house Have you lived/traveled outside US in past 30 days?: No Contact w/someone who lives/traveled outside US past 30 days?: No Exposure to someone with infectious disease in past 14 days?: No Do you have a fever (greater than 100.4 F or 38 C)?: No Have you tested positive for COVID-19: No Exposed to someone with COVID-19 in past 14 days?: No Do you have a sore throat?: No Do you have a cough?: No Do you have any weakness?: No Do you have any diarrhea?: No Are you experiencing any unusual bleeding?: No Do you have any muscle aches/pain?: No Do you have any abdominal pain?: No Are you experiencing loss of taste or smell?: No [facility] Anesthesia Checklist Patient Identification Patient Identification: Arm Band Structural Data Admitted From: Home Planned Operative Procedure/s: Colonoscopy Consent for Planned Operative Procedure(s) Verified: Yes Verified Documents: Surgical Consent and History and Physical NPO Status Verified Time NPO: 00:00 Additional verifications Anesthesia Reactions: No Airway Assessment Mallampati Score:: Class II C-Spine Mobility Assessed: Yes TMJ Mobility Assessed: Yes Dentition: Good Dentition Neurological Assessment Level of Consciousness: Awake, Alert and Appropriate Anesthesia Plan Anesthesia Risk discussed: Yes Anesthesia Plan: Verified ASA Class: II Anesthesia Type: MAC
[2024-08-09 09:56] VITALS: O2SAT 98
[2024-08-09 10:40] VITALS: BP 121/62; PULSE 60; RESP 16; TEMP 36.2; O2SAT 96
[2024-08-09 10:50] VITALS: BP 108/59; PULSE 69; RESP 16; O2SAT 95
[2024-08-09 11:00] VITALS: BP 115/79; PULSE 66; RESP 16; O2SAT 97
[2024-08-09 11:02] VITALS: BP 136/77; PULSE 61; RESP 16; O2SAT 99
== END 2024-08-09 11:08 | disposition home or self-care (01) ==
PROVIDERS: PCP Internal Medicine; Visit Provider Surgery
PROC: 0DJD8ZZ Inspection of Lower Intestinal Tract, Via Natural or Artificial Opening Endoscopic (ICD-10-PCS; CPT 45380; principal; 2024-08-09 10:20)
DX: K63.5 Polyp of colon (principal); K64.9 Unspecified hemorrhoids; K57.30 Diverticulosis of large intestine without perforation or abscess without bleeding; Z86.0100 Personal history of colon polyps, unspecified
CPT/HCPCS: 45380; J2704; J7120

== ENCOUNTER 2024-08-16 09:29 | Outpatient (CLI) | payer BC, SELFPAY ==
[2024-08-17 08:13] LABS: FSH 4.8 mIU/mL (1.5-12.4); LH 3.5 mIU/mL (1.7-8.6); Prolactin 9.5 ng/mL (3.6-25.2); Testosterone,Total 253 ng/dL (264-916)
[2024-08-22 13:35] LABS: Triglycerides 246 mg/dl (30-150)
== END 2024-08-16 23:59 | disposition home or self-care (01) ==
PROVIDERS: PCP Internal Medicine; Visit Provider Internal Medicine
DX: R79.89 Other specified abnormal findings of blood chemistry (principal); E78.5 Hyperlipidemia, unspecified
CPT/HCPCS: 36415; 83001; 83002; 84146; 84403; 84478

== ENCOUNTER 2024-10-17 09:25 | Outpatient (CLI) | payer BC, SELFPAY ==
[2024-10-17 18:34] LABS: Triglycerides 109 mg/dl (30-150)
[2024-10-19 08:32] LABS: Testosterone,Total 370 ng/dL (264-916)
== END 2024-10-17 23:59 | disposition home or self-care (01) ==
LOC: LAB.DROPOF 10-18 13:16
PROVIDERS: PCP Internal Medicine; Visit Provider Internal Medicine
DX: E78.5 Hyperlipidemia, unspecified (principal); R79.89 Other specified abnormal findings of blood chemistry
CPT/HCPCS: 84403; 84478

== ENCOUNTER 2025-02-07 07:10 | Outpatient (CLI) | payer BC, SELFPAY ==
--- OUTSIDE RECORDS SUMMARY | 2024-10-29 17:30 | XMS_ITS ---
Author Organization [facility] Address [address] [facility] [address] [place] [address] Care Team Providers Care Supervisor Poultry Hatchery Name Role Phone Kendall Conde Primary Care Provider [phone] Migration, Provider Unavailable Unavailable [facility] VISIT [facility] Encounter Medications Medication SIG (Take, Route, Frequency, Duration) Notes Start Date End Date Status Vitamin E 400 UNIT 1 cap(s) orally once a day; Duration: 30 day(s) Active Metamucil Smooth Texture 58.6 % as directed orally once a day; Duration: 7 day(s) Active Multivitamin MULTIPLE VITAMINS 1 CAP(S) ORALLY ONCE A DAY *Please review and pick correct strength-formulatio n from Rackwisean options. If intended option is not shown, discontinue and re-order from Quick Search* Active Shanti Allergy 180 MG 1 tab(s) orally once a day Active Aspirin 81 MG 1 TAB(S) ORALLY ONCE A DAY *Please review and pick correct strength-formulatio n from Food Matters Marketsspan options. If intended option is not shown, discontinue and re-order from Quick Search* Active Valsartan-hydroCHLORO thiazide 80-12.5 MG 1 tab(s) orally once a day; Duration: 30 day(s) Active IBU 800 MG 1 tab(s) orally 3 times a day; Duration: 30 Active Atorvastatin Calcium 40 MG 1 tab(s) orally once a day; Duration: 30 day(s) Active amLODIPine Besylate 10 MG 1 tab(s) orally once a day; Duration: 30 day(s) Active Encounters Encounter Location Date Provider Diagnosis [facility] [address] [place] [address] 10/29/2024 Provider Migration Plan Of Treatment Medication Medication Name Sig Start Date Stop Date Notes IBU 800 MG 1 tab(s) orally 3 ti mes a day; Duration: 30 Progress Notes * Anshul LUCIANO DDOB:[birth year] (59 yo M)Acc No.[id number]:10/29/2024 Patient: Anshul ANGUIANO Provider: Darwin clifton Migration :1965 A ge:59 Y S ex:Male Date:10/29/2024 Address:[address] [place] [address], [place], [id number] Pcp:Kendall Conde Subjective: * Chief Complaints: * 1 . [facility] Conversion Encounter. * Medical History: * Medications: T aking Valsartan-hydroCHLOROthiazide 80-12.5 MG Tablet 1 tab(s) orally once a day , Taking amLODIPine Besylate 10 MG Tablet 1 tab(s) orally once a day , Taking Atorvastatin Calcium 40 MG Tablet 1 tab(s) orally once a day , Taking Aspirin 81 MG TABLET 1 TAB(S) ORALLY ONCE A DAY , Notes to Pharmacist: *Please review and pick correct strength-formulation from Rackwisean options. If intended option is not shown, discontinue and re-order from Quick Search*, Taking Multivitamin MULTIPLE VITAMINS CAPSULE 1 CAP(S) ORALLY ONCE A DAY , Notes to Pharmacist: *Please review and pick correct strength-formulation from Food Matters Marketsspan options. If intended option is not shown, discontinue and re-order from Quick Search*, Taking Shanti Allergy 180 MG Tablet 1 tab(s) orally once a day , Taking Vitamin E 400 UNIT Capsule 1 cap(s) orally once a day , Taking Metamucil Smooth Texture 58.6 % Powder as directed orally once a day Objective: * Vitals: Assessment: Plan: * Treatment: * * Electronic signature of Alexx kimble Migration on 02/07/2025 at 07:14 AM EDT Sign off status: Pending * Provider: Darwin clifton Migration Date: 0 10/29/2024 Generated for Renny valiente/Hung/Deny on: 02/07/2025 07:14 AM EDT
--- OUTSIDE RECORDS SUMMARY | 2024-12-28 20:00 | XMS_ITS | Encounter Summary ---
Author Organization [facility] Address [address] [place] [address] Care Team Providers Care Acetylene Torch Burner Name Role Phone Edmundo Crane MD Primary Care Provider [phone] Reason for Visit * Other Medical (Routine) - Closed Specialty Diagnoses / Procedures Referred By Ti cardoza Referred To Contact Sleep Medicine Diagnoses HUNG (obstructive sleep apnea) Procedures Adult Sleep Study Overnight Polysomnography With CPAP Titration Debbie Pardo APRN [address] [place] [address] Phone: tel: fax: Referral ID Status Reason Start Date Expiration Date V isits Requested Visits Authorized [id number] Closed Specialty Services Required 11/21/2024 05/23/2026 1 1 Encounter Details Date Type Department Care Team (Late st Contact Info) Description 12/28/2024 8:00 PM EDT Clinical Support [facility] Sleep Disorder Center [address] [place] [address] Karely Gorman Snoring (Primary Dx); HUNG (obstructive sleep apnea) Social History Tobacco Use Types Packs/Day Years Used Date Smoking Tobacco: Never Passive Smoke Exposure: Never Smokeless Tobacco: Current Snuff Alcohol Use Standard Drinks/Week Comments Yes 0 (1 standard drink = 0.6 oz pure alcohol) up to 1 or 2 drinks per month / social PHQ-2 Answer Date Recorded Patient Health Questionnaire-2 Score 0 10/14/2024 PHQ-9 Answer Date Recorded Patient Health Questionnaire-9 Score 1 10/14/2024 PHQ-2A Answer Date Recorded Patient Health Questionnaire-2 Score 0 03/10/2023 Sex and Gender Information Value Date Recorded Sex Assigned at Male 12/20/2021 8:47 AM EDT Legal Sex Male 8:53 PM EDT Gender Identity Male 12/20/2021 8:47 AM EDT Sexual Orientation Straight 12/20/2021 8: 47 AM EDT documented as of this encounter Last Filed Vital Signs Vital Sign Reading Time Taken Comments Blood Pressure 120/75 12/28/2024 8:12 PM EDT Pulse - - Temperature - - Respiratory Rate - - Oxygen Saturation - - Inhaled Oxygen Concentration - - Weight 111 kg (245 lb) 12/28/2024 8:12 PM EDT Height 188 cm (6' 2 ) 12/28/2024 8:12 PM EDT Body Mass Index 31.46 12/28/2024 8:12 PM EDT documented in this encounter Miscellaneous Notes * Patient Instructions - Karely Gorman - 12/28/2024 8:00 PM EDT Thank you for allowing us to care for you during your overnight stay. You should expect to hear from staff within the next 7-10 business days regarding your results. If you have any questions or concerns, please contact us during normal business hours: Thursday-Thursday 8:00AM -4:30 PM, . We thank you for giving us the opportunity to take care of you! documented in this encounter Plan of Treatment Upcoming Encounters Date Type Department Care Team (Late st Contact Info) Description 03/21/2025 3:30 PM EDT Appointment Cardiac Imaging [address] [place] [address] 04/13/2025 9:00 AM EDT Office Visit [facility] Sleep Disorder Center [address] [place] [address] Reji Kaur MD [address] [place] [address] 10/12/2025 9:00 AM EDT Office Visit [facility] [place] [facility] [address] [place] [address] Teodora Saez, POWER STATION OPERATOR [address] [place] [address] documented as of this encounter Procedures Procedure Name Priority Date/Time Associated Diagnosis Comments ADULT SLEEP STUDY OVERNIGHT POLYSOMNOGRAPHY WITH CPAP TITRATION Routine 12/28/2024 8:17 PM EDT HUNG (obstructive sleep apnea) documented in this encounter Results * Adult Sleep Study Overnight Polysomnography With CPAP Titration (12/28/2024 8:17 PM EDT) 12/28/2024 8:17 PM EDT Narrative [facility] - 01/08/2025 12:51 AM EDT General Information:See Media Viewer for report. This statement produced by Interface. us Debbie Pardo [facility] ORDERABLES Final Result [facility] documented in this encounter Visit Diagnoses Diagnosis Snoring- Primary Other dyspnea and respiratory abnormality HUNG (obstructive sleep apnea) Obstructive sleep apnea (adult) (pediatric) documented in this encounter Additional Health Concerns Assessment Noted Time PHQ-9 Depression Total Score: 1 10/15/19 25 8:16 AM EDT A fall risk assessment has been complete d for the patient 12/28/2024 8:12 PM EDT A Body Mass Index follow-up plan has been documented for the patient 12/29/2024 2:13 AM EDT documented as of this encounter Care Teams Acetylene Torch Burner Relationship Specialty Start Date End Date Edmundo Crane MD [address] [place] [address] PCP - General 12/07/20 documented as of this encounter
--- OUTSIDE RECORDS SUMMARY | 2025-01-06 22:52 | XMS_ITS | Encounter Summary ---
Author Organization [facility] ([place], [place], [place], [place]) Address [address] [place] [address] Care Team Providers Care Automotive Designer Name Role Phone Fritz Stafford MD Primary Care Provider [phone] Reason for Visit * Reason Comments Laceration Pt c/o left hand fin viraj laceration after having a screw punctured through cabinet into middle digit. Encounter Details Date Type Department Care Team (Late st Contact Info) Description 01/06/2025 10:52 PM EDT - 01/07/2025 12:08 AM EDT Emergency [facility] Emergency Department [address] [place] [phone] Regine Inman MD [address] [place] [address] Finger laceration (Primary Dx) Discharge Disposition: Home or Self Care Social History Tobacco Use Types Packs/Day Years Used Date Smoking Tobacco: Never Smokeless Tobacco: Former Chew Tobacco Cessation:Counseling Given: Not Answered Alcohol Use Standard Drinks/Week Comments Not Currently 0 (1 standard drink = 0.6 oz pur e alcohol) Sex and Gender Information Value Date Recorded Sex Assigned at Not on file Legal Sex Male 9:46 PM CDT Gender Identity Not on file Sexual Orientation Not on file documented as of this encounter Last Filed Vital Signs Vital Sign Reading Time Taken Comments Blood Pressure 145/75 01/07/2025 12:05 AM EDT Pulse 85 01/06/2025 10:51 PM EDT Temperature 36.6 C (97.9 F) 01/06/2025 10:51 PM EDT Respiratory Rate 16 01/06/2025 10:51 PM EDT Oxygen Saturation 95% 01/06/2025 10:51 PM EDT Inhaled Oxygen Concentration - - Weight 111.1 kg (245 lb) 01/06/2025 10:51 PM EDT Height 188 cm (6' 2 ) 01/06/2025 10:51 PM EDT Body Mass Index 31.46 01/06/2025 10:51 PM EDT documented in this encounter Discharge Instructions * Attachments The following attachments cannot be sent through Care Everywhere. * Laceration Care Adult [id number] (Icelandic) documented in this encounter Medications at Time of Discharge cephalexin (KEFLEX) 500 MG capsule Take 1 capsule (500 mg total) by mouth 3 (three) times daily for 10 days. 30 capsule 01/07/2025 01/17/2025 documented as of this encounter ED Notes * Belinda Mccabe PA-C - 01/07/2025 12:03 AM EDTAssociated Order(s): Laceration repair Subjective Chief Complaint: Laceration (Pt c/o left hand finger laceration after having a screw punctured through cabinet into middle digit.) Patient is a 59-year-old male who presents the emergency department with a laceration to his left third digit finger pad, he states that he was helping put up a cabinet whenever a screw went into hisfinger. Patient has full range of motion no numbness or tingling bleeding controlled unknown Tdap Patient History Past Medical History: Diagnosis Date Hyperlipidemia Past Surgical History: Procedure Laterality Date SHOULDER ARTHROSCOPY No family history on file. Social History Tobacco Use Smoking status: Never Smokeless tobacco: Former Types: Chew Substance Use Topics Alcohol use: Not Currently I reviewed the HPI, ROS and PFSH documentation recorded by others in the medical record and supplemented my note as needed. Review of Systems Review of Systems Skin: Positive for wound. Physical Exam ED Triage Vitals [01/06/252250] Encounter Vitals Group BP (!) 172/82 Systolic BP Percentile Diastolic BP Percentile Pulse 85 Resp 16 Temp 97.9 ??F (36.6 ??C) Temp src Temporal Art SpO2 95 % Weight 111.1 kg (245 lb) Height 1.88 m (6' 2 ) Head Circumference Peak Flow Pain Score Two Pain Loc Pain Education Exclude from Growth Chart Physical Exam Vitals and nursing note reviewed. Constitutional: General: He is not in acute distress. Appearance: Normal appearance. He is not toxic-appearing. HENT: Head: Normocephalic and atraumatic. Mouth/Throat: Mouth: Mucous membranes are moist. Pharynx: Oropharynx is clear. Cardiovascular: Pulses: Normal pulses. Musculoskeletal: General: Normal range of motion. Skin: General: Skin is warm and dry. Capillary Refill: Capillary refill takes less than 2 seconds. Comments: 1 cm triangular flap laceration bleeding controlled Neurological: General: No focal deficit present. Mental Status: He is alert. Psychiatric: Mood and Affect: Mood normal. Behavior: Behavior normal. Neurological Exam Mental Status Alert. Ortho Exam ED Course & MDM Medications lidocaine (PF) injection 10 mg/mL (1%) (5 mLs intradermal Given 01/06/25 2336) diphth,pertus(acell),tetanus (BOOSTRIX) vaccine 0.5 mL (0.5 mLs intraMUSCULAR Given 01/06/25 2340) cephalexin (KEFLEX) capsule 500 mg (500 mg oral Given 01/07/25 0005) No results found for this or any previous visit. XR hand 3 views left (Results Pending) Laceration repair Date/Time: 01/07/2025 12:07 AM Performed by: Belinda Mccabe PA-C Authorized by: Belinda Mccabe PA-C Consent: Consent obtained: Verbal Consent given by: Patient Risks discussed: Infection, pain, poor cosmetic result and poor wound healing Alternatives discussed: Delayed treatment and no treatment [place] protocol: Patient identity confirmed: Verbally with patient Anesthesia: Anesthesia method: Local infiltration Local anesthetic: Lidocaine 1% w/o epi Laceration details: Location: Finger Finger location: L long finger Length (cm): 2 Pre-procedure details: Preparation: Patient was prepped and draped in usual sterile fashion and imaging obtained to evaluate for foreign bodies Exploration: Hemostasis achieved with: Direct pressure Imaging outcome: foreign body not noted Wound exploration: wound explored through full range of motion and entire depth of wound visualized Contaminated: no Treatment: Area cleansed with: Chlorhexidine Amount of cleaning: Standard Irrigation solution: Sterile saline Skin repair: Repair method: Sutures Suture size: 5-0 Suture material: Prolene Suture technique: Simple interrupted Number of sutures: 6 Approximation: Approximation: Close Repair type: Repair type: Simple Post-procedure details: Dressing: Non-adherent dressing and splint for protection Medical Decision Making X-rays showed no acute fracture, no foreign body. Patient had Tdap in ER. Patient tolerated laceration repair well. Patient was given Keflex and advised on wound care. Patient verbally expressed understanding and agreement with treatment plan as well as strict return precautions. Amount and/or Complexity of Data Reviewed Radiology: ordered and independent interpretation performed. Risk Prescription drug management. Assessment & Plan Clinical Impression Diagnosis Comment Added By Time Added Finger laceration Belinda Mccabe PA-C 01/07/2025 12:02 AM Disposition Discharge [1] - 01/07/2025 12:02 AM Discharge Medication List as of 01/07/2025 12:03 AM START taking these medications Details cephalexin (KEFLEX) 500 MG capsule Take 1 capsule (500 mg total) by mouth 3 (three) times daily for10 days., Starting 01/07/2025, Until 01/17/2025, Normal Contact information for follow-up Fritz Stafford MD Specialty: General Internal Medicine Relationship: PCP - General [address] [place] [address] [address] [facility] [address] Next Steps: Follow up Instructions: For suture removal approx 10 days [facility] Emergency Department Specialty: Emergency Medicine [address] [place] [address] Next Steps: Follow up Instructions: As needed, If symptoms worsen Electronically Signed By Belinda Mccabe PA-C 01/07/25 0009 Cosigned by Regine Inman MD at 01/07/2025 12:32 AM EDT Associated attestation - Regine Inman MD - 01/06/2025 11:32 PM CDT I was present in the Emergency Department. JUN did not consult me regarding this patient's case, I did not personally evaluate this patient or participate directly in their care. Please see JUN note for additional details of assessment. Chart review only. documented in this encounter Plan of Treatment Not on file documented as of this encounter Procedures Procedure Name Priority Date/Time Associated Diagnosis Comments FS_[facility]_MODEL_LACERA TION REPAIR Routine 01/07/2025 12:07 AM EDT XR HAND 3 VIEWS LEFT STAT 01/06/2025 11:09 PM EDT documented in this encounter Results * Laceration repair (01/07/2025 12:07 AM EDT) Narrative Regine Inman MD - 01/07/2025 12:07 AM EDT Belinda Mccabe PA-C 01/07/2025 12:09 AM Laceration repair Date/Time: 01/07/2025 12:07 AM Performed by: Belinda Mccabe PA-C Authorized by: Belinda Mccabe PA-C Consent: Consent obtained: Verbal Consent given by: Patient Risks discussed: Infection, pain, poor cosmetic result and poor wound healing Alternatives discussed: Delayed treatment and no treatment [place] protocol: Patient identity confirmed: Verbally with patient Anesthesia: Anesthesia method: Local infiltration Local anesthetic: Lidocaine 1% w/o epi Laceration details: Location: Finger Finger location: L long finger Length (cm): 2 Pre-procedure details: Preparation: Patient was prepped and draped in usual sterile fashion and imaging obtained to evaluate for foreign bodies Exploration: Hemostasis achieved with: Direct pressure Imaging outcome: foreign body not noted Wound exploration: wound explored through full range of motion and entire depth of wound visualized Contaminated: no Treatment: Area cleansed with: Chlorhexidine Amount of cleaning: Standard Irrigation solution: Sterile saline Skin repair: Repair method: Sutures Suture size: 5-0 Suture material: Prolene Suture technique: Simple interrupted Number of sutures: 6 Approximation: Approximation: Close Repair type: Repair type: Simple Post-procedure details: Dressing: Non-adherent dressing and splint for protection Belinda Mccabe PA-C PROCEDURE/MINOR SURGICAL ORDERABLES Final Result * XR hand 3 views left (01/06/2025 11:09 PM EDT) Anatomical Region Laterality Modality Hand X-Ray 01/08/2025 4:42 PM EDT Impressions 01/08/2025 4:47 PM EDT Soft tissue laceration with no acute bony abnormality. Images reviewed, interpreted, dictated and electronically signed by Srini Ortiz MD Voice braille teacher technology (Power Scribe) is used for the dictation of this note and sound-alike words might be erroneously placed despite reviewing this note for accuracy. Errors in dictation may reflect use of voice recognition software and not all errors in braille teacher may have been detected prior to signing. Narrative 01/08/2025 4:47 PM EDT LEFT HAND THREE VIEWS HISTORY: Left third digit puncture wound FINDINGS: Three views of the left hand were performed. There is soft tissue laceration involving the distal third phalanx. The metacarpals and phalanges are normally aligned. There is no radiopaque foreign body. There is no acute bony abnormality. Procedure Note Srini Ortiz MD - 01/08/2025 LEFT HAND THREE VIEWS HISTORY: Left third digit puncture wound FINDINGS: Three views of the left hand were performed. There is soft tissue laceration involving the distal third phalanx. The metacarpals and phalanges are normally aligned. There is no radiopaque foreign body. There is no acute bony abnormality. IMPRESSION: Soft tissue laceration with no acute bony abnormality. Images reviewed, interpreted, dictated and electronically signed by Srini Ortiz MD Voice braille teacher technology (Power Scribe) is used for the dictation of this note and sound-alike words might be erroneously placed despite reviewing this note for accuracy. Errors in dictation may reflect use of voice recognition software and not all errors in braille teacher may have been detected prior to signing. us Belinda Mccabe PA-C [facility] Final Result documented in this encounter Visit Diagnoses Diagnosis Finger laceration- Primary Open wound of finger(s) , without mention of complication documented in this encounter Administered Medications Inactive Administered Medications - up to 3 most recent administrations Medication Order MAR Action Action Date Dose Rate Site cephalexin (KEFLEX) capsule 500 mg 500 mg Once, oral, On 01/07/25 at 0005, For 1 dose, Please choose an indication: Skin/Soft Tissue Infection Given 01/07/2025 12:05 AM EDT 500 mg lidocaine (PF) injection 10 mg/mL (1%) 5 mL Once, intradermal, On Thu01/06/25 at 2335, For 1 dose Given 01/06/2025 11:36 PM EDT 5 mLs documented in this encounter Active and Recently Administered Medications Times are shown in EDT. Scheduled Medication Order 01/05/2025 01/06/2025 01/07/2025 cephalexin (KEFLEX) capsule 500 mg (COMPLETED) 500 mg Once, oral, On 01/07/25 at 0005, For 1 dose, Please choose an indication: Skin/Soft Tissue Infection 0005 (Given - Provid er: Dimple Buchanan RN) lidocaine (PF) injection 10 mg/mL (1%) (COMPLETED) 5 mL Once, intradermal, On Thu01/06/25 at 2335, For 1 dose 2336 (Given - Provider: Sahhram Akers RN) documented in this encounter Care Teams Automotive Designer Relationship Specialty Start Date End Date Fritz Stafford MD [address] [place] [id number] PCP - General General Internal Medicine 01/06/25 documented as of this encounter
--- OUTSIDE RECORDS SUMMARY | 2025-01-11 09:00 | XMS_ITS | Encounter Summary ---
Author Organization [facility] Address [address] [place] [address] Care Team Providers Care Radio Presenter Name Role Phone Edmundo Crane MD Primary Care Provider [phone] Reason for Referral * Consultation (Routine) - Authorized Specialty Diagnoses / Procedures Referred By Ti cardoza Referred To Contact Diagnoses HUNG (obstructive sleep apnea) Debbie Pardo APRN [address] [address] Phone: tel: fax: Referral ID Status Reason Start Date Expiration Date V isits Requested Visits Authorized [id number] Authorized 01/11/2025 07/13/2026 1 1 * Imaging (Routine) - Pending Review Specialty Diagnoses / Procedures Referred By Ti cardoza Referred To Contact Cardiology Diagnoses HUNG (obstructive sleep apnea) Leg swelling Procedures Echo, Adult Transthoracic Complete Debbie Pardo APRN [address] [place] [address] Phone: tel: fax: Referral ID Status Reason Start Date Expiration Date Visits Requested Visits Authorized [id number] Pending Review Perform Procedure 01/11/2025 07/13/2026 1 1 Reason for Visit * Reason Comments Sleep Study Follow Up Encounter Details Date Type Department Care Team (Late st Contact Info) Description 01/11/2025 9:00 AM EDT Office Visit [facility] [address] [place] [address] Debbie Pardo APRN [address] [place] [address] HUNG (obstructive sleep apnea) (Primary Dx); Leg swelling Social History Tobacco Use Types Packs/Day Years [...] Sign Reading Time Taken Comments Blood Pressure - - Pulse - - Temperature - - Respiratory Rate - - Oxygen Saturation - - Inhaled Oxygen Concentration - - Weight 111 kg (245 lb) 01/11/2025 8:51 AM EDT Height 188 cm (6' 2 ) 01/11/2025 8:51 AM EDT Body Mass Index 31.46 01/11/2025 8:51 AM EDT documented in this encounter Miscellaneous Notes * Patient Instructions - Debbie Pardo APRN - 01/11/2025 9:00 AM EDT -You are showing excellent compliance with your CPAP. -Treatment with the CPAP is correcting your sleep apnea very well. -Continue to use CPAP for all sleep which should include naps if taken. -Prescription updated to your supply company [employer]. -Follow up in 3 months or sooner if needed. * Progress Notes - Debbie Pardo APRN - 01/11/2025 9:00 AM EDT Subjective Dear Dr. Crane, Edmundo Gracia MD, I had the pleasure of seeing Anshul Luciano at the [facility] with/for Sleep Study Follow Up. Visit Type: Established patient HPI Anshul Luciano is a 59 y.o. male established patient who presents today for results review. Patient initially established care with us May 2024 for concerns of HUNG using MAD. Patient underwent a HST on 06/19/2024 using the 3% rule. The monitoring time was 461.5 min which was adequate for interpretation. It showed moderate obstructive sleep apnea with a MARY of 20.3 events/hour. The lowest desaturation was to 79%. Patient subsequently started on AutoPAP. July 2024: Patient returned for 31-90 day follow-up, was doing well with CPAP but did not feel like pressure was enough. As patient was maxing out pressure, adjustments were made, patient set to 10 cm H2O to 18 cm H2O. August 2024: Patient doing well with new pressures but still feeling like could use higher pressure. Due to elevated AHI, pressures adjusted to 12 to 18 cm H2O. September 2024: Patient reported did not feel quite as well rested as he was hoping. Does like the higher pressures, happy with the changes. Still sometimes feels like there is not quite enough pressure.Ramp pressures increased and patient changed to CPAP 17 cm H2O. October 2024: Reports not feeling well rested, gets tired in the afternoon and still having drowsy driving. Denies any issues with mask or fatigue. Labs ordered along with CPAP titration. Patient presents today for follow-up on results. Patient underwent CPAP titration, 12/28/2024, and ideal pressure found to be at 16 cm H2O. Patient endorses on-going fatigue and sleepiness, patient notes it is worse in the afternoon. Patient denies any improvement since starting on iron supplements. P atient notes has seen there is a mask leak and has worked to try and correct that. Leak on DD today53 L/min. Patient using FFM, changing mask out regularly. Patient denies any issues with pressure. Patient does endorse has noticed some lower leg swelling recently as well. DME: [facility] ESS: 21 Pertinent medical history includes HTN, HLD, HUNG PAP Data Card Download Data card download: 30 days 12/11/2024 to 01/09/2025 Total usage: 97% >4 hour compliance: 90% Average use (days used): 5 hours 56 min Setting: CPAP 17 cm H2O 95th percentile leak: 53.3 L/min, max leak 70 L/min Residual AHI: 3.8 oAHI (apnea plus hypopnea): 2.0 cAHI: 0 Past Medical History[1] Surgical History[2] Family History[3] Social History Tobacco Use Smoking status: Never Passive exposure: Never Smokeless tobacco: Current Types: Snuff Substance Use Topics Alcohol use: Yes Comment: up to 1 or 2 drinks per month / social Current Medications[4] All medications have been reviewed today. Allergies[5] Immunization History Administered Date(s) Administered Hep A, Adult 01/07/2019, 09/17/2019 Influenza, injectable, quadrivalent 06/02/2017, 06/16/2018 Influenza, injectable, quadrivalent, preservative free 05/31/2019, 06/11/2021, 05/07/2023 Influenza, recombinant, quadrivalent, injectable, preservative free 05/24/2020 Influenza, seasonal, injectable 06/26/2020, 06/26/2020 Influenza, seasonal, injectable, preservative free 06/16/2024 Moderna COVID-19 Vaccine (Media Theorist And Author Of) 12+ years 10/25/2021 Moderna Covid-19 Vaccine 12y+, Tahir Protein, Preservative free 05/07/2023 Fantrotter-Holla@Me COVID-19 Vaccine (Purple Cap) 12+ 08/09/2020, 08/09/2020, 08/31/2020, 08/31/2020, 04/26/2021, 04/26/2021 Pneumococcal Conjugate PCV 13 12/07/2020, 12/07/2020 Tdap 01/07/2019 Zoster, Recombinant 12/07/2020, 12/07/2020, 06/11/2021 The following portions of the chart were reviewed this encounter and updated as appropriate: Tobacco Allergies Meds Problems Med Hx Surg Hx Fam Hx ROS Constitutional: No significant changes in weight Resp: No abnormal cough or shortness of breath Cardiac: No chest pain, palpitations Psych: No changes in mood Objective There were no vitals taken for this visit. Height and Weight Height: 188 cm (6' 2 ) Weight: 111 kg (245 lb) BSA (Calculated - sq m): 2.41 sq meters BMI (Calculated): 31.44 Weight in (lb) to have BMI = 25: 194.3 Physical Exam telehealth Constitutional: no acute distress, well appearing, and well nourished. Does not appear tired. BMI 31.46 Head and Face: normal, symmetrical Eyes: sclera clear, no redness, or discharge Neck: supple, symmetric, trachea midline Pulmonary: No increased work of breathing or signs of respiratory distress Neurologic: alert and oriented to person, place, and time. Judgement and insight normal. Memory intact. Psychiatric: mood and affect appropriate Assessment/Plan Problem List Items Addressed This Visit None Visit Diagnoses HUNG (obstructive sleep apnea) - Primary Relevant Orders Echo, Adult Transthoracic Complete Follow Up Sleep Medicine Sleep CPAP Sleep PAP Supplies Leg swelling Relevant Orders Echo, Adult Transthoracic Complete Discussion Summary: HUNG, moderate AHI 20.3 events/hr -Well controlled on current CPAP settings 17 cm H2O. Excellent compliance with CPAP therapy and denies any problems with pressure. - Ess is 21 (<10 normal). Unclear if relate to HUNG or other underlying condition. Will continue to optimize HUNG. -Based on residual AHI and subjective symptoms, will adjusted to titration pressure. Patient changed to CPAP 16 cm H2O. Additionally as patient having large mask leak, encouraged patient to f/u with DME to complete mask fitting to ensure lower leakage to help with compliance and perhaps EDS. Encouraged patient to increase sleep hours to maintain 6-8 hours/night. -Discussed f/u with MD for potential idiopathic hypersomnia and potentially treatment. Will differ at this time. -As the patient having lower leg swelling, will obtain ECHO, as low EF can effect sleep apnea. -Patient continues to benefit from CPAP therapy. -Script renewed with supplies to DME [employer], valid for one year. Encouraged follow-up with PCP tomanage other comorbidities. -Follow-up in 3 months in sleep clinic. Discussed the importance of following up with us in the clinic to address issues, evaluate compliance, and make any adjustments to pressure. -No further questions at this time. Encouraged patient to call sooner with any concerns. Counseling Documentation: The patient was counseled regarding cpap education, cpap troubleshooting, DME education, impressions, and importance of compliance with treatment. Reviewed data card download and discussed impressions of data for sleep apnea. Education provided was verbal counseling. Additional time was spent in care coordination including medical record review. The total time of encounter was 41 minutes. Telehealth Statement Patient Verification Patient identity has been confirmed using name and date of ? Yes Authorizations and Agreements/Telemedicine Consent sent and consent confirmed? Yes Patient Location: Home/Other Patient confirms they are physically located in [place]? Yes If the patient is not physically located in [place], the provider has confirmed with [facility] thatthe provider is authorized to provide services in patient's stated location? N/A Provider Location: [facility] facility Audio and video or audio only? Audio and video Total visit time: 22 minutes [1] Past Medical History: Diagnosis Date Deficiency of other specified B group vitamins Vitamin B 12 deficiency Diverticular disease of colon 09/17/2021 Hypertension Perforated diverticulum of large intestine 09/17/2021 Personal history of other diseases of the digestive system History of diverticulitis Personal history of other mental and behavioral disorders History of anxiety Personal history of other specified conditions History of chest pain [2] Past Surgical History: Procedure Laterality Date COLON SURGERY N/A Colon Surgery from [facility]OTATOR CUFF REPAIR Right 03/31/2023 WISDOM TOOTH EXTRACTION N/A [place] tooth extraction from [facility] [3] Family History Problem Relation Name Age of Onset Pulmonary embolism Mother Coronary artery disease Father Colon cancer Maternal Grandfather NELSON Santoyo Cancer Maternal Grandfather NELSON Natanael Conversions - Other Paternal Grandfather History of nephrectomy Heart failure Other Coronary artery disease Other Anesthesia problems Neg Hx Malig Hyperthermia Neg Hx [4] Current Outpatient Medications Medication Sig Dispense Refill amLODIPine (Norvasc) 10 MG tablet Take 1 tablet (10 mg) by mouth daily. 90 tablet 3 ascorbic acid (vitamin C) 100 MG tablet Take 1 tablet by mouth daily. Please take with Iron supplement. 90 tablet 0 aspirin 81 MG EC tablet TAKE 1 TABLET BY MOUTH DAILY cephalexin (Keflex) 500 MG capsule Take 1 capsule by mouth 3 times a day. cholecalciferol (Vitamin D-3) 250 MCG (81090 UT) capsule Take 1 capsule (10,000 Units) by mouth daily. Takes 82276 daily Evolocumab (Repatha SureClick) 140 MG/ML solution auto-injector Inject 1 mL (140 mg) under the skinevery 14 (fourteen) days. 6 mL 1 ferrous gluconate (Fergon) 324 (38 Fe) MG tablet Take 1 tablet by mouth daily with breakfast. 90 tablet 0 fexofenadine (Shanti) 180 MG tablet Take 1 tablet (180 mg) by mouth daily. Multiple Vitamin (multivitamin) tablet Take 1 tablet by mouth daily. One a day sildenafil (Viagra) 100 MG tablet Take 1 tablet (100 mg) by mouth daily as needed for erectile dysfunction. 10 tablet 3 tadalafil (Cialis) 10 MG tablet as needed for erectile dysfunction. testosterone cypionate (Depo-Testosterone) 200 MG/ML injection every 14 (fourteen) days. valsartan (Diovan) 320 MG tablet Take 1 tablet (320 mg) by mouth daily. 90 tablet 3 Vitamin E 180 MG (400 UNIT) capsule 1 (one) time each day at the same time. multivitamin with minerals (Centrum) 9-200 mg-mcg tablet split tablet 1 (one) time each day at the same time. (Patient not taking: Reported on 01/11/2025) propranolol (Inderal) 10 MG tablet Take 1 tablet (10 mg) by mouth 3 (three) times a day. (Patient not taking: Reported on 01/11/2025) 90 tablet 11 propranolol LA (Inderal LA) 60 MG 24 hr capsule Take 1 capsule (60 mg) by mouth daily. Do not crush, chew, or split. (Patient not taking: Reported on 01/11/2025) 90 capsule 3 psyllium (Metamucil Smooth Texture) 58.6 % powder 1 (one) time each day at the same time. (Patient not taking: Reported on 01/11/2025) tamsulosin (Flomax) 0.4 MG 24 hr capsule Take 1 capsule (0.4 mg) by mouth daily. (Patient not taking: Reported on 01/11/2025) No current facility-administered medications for this visit. [5] Allergies Allergen Reactions Iodinated Contrast Media Other - please document in the comment field documented in this encounter Plan of Treatment Upcoming Encounters Date Type Department Care Team (Late st Contact Info) Description 03/21/2025 3:30 PM EDT Appointment Cardiac Imaging [address] [place] [address] 04/13/2025 9:00 AM EDT Office Visit [facility] [address] [place] [phone] Reji Kaur MD [address] [place] [address] 10/12/2025 9:00 AM EDT Office Visit [facility] [place] [address], [address] [place] [address] Teodora Saez, PHYSICAL FITNESS TRAINER [address] [place] [address] Scheduled Orders Name Type Priority Associated Diagnoses Order Schedule Echo, Adult Transthoracic Complete Echocardiography Routine HUNG (obstructive sleep apnea) Leg swelling 1 Occurrences starting 01/11/2025 until 07/15/2026 Scheduled Referrals Name Type Priority Associated Diagnoses Orde r Schedule Follow Up Sleep Medicine Outpatient Referral Routine HUNG (obstructive sleep apnea) Expected: 04/13/2025, Expires: 07/15/2026 documented as of this encounter Visit Diagnoses Diagnosis HUNG (obstructive sleep apnea)- Primary Obstructive sleep apnea (adult) (pediatric) Leg swelling Swelling of limb documented in this encounter Additional Health Concerns Assessment Noted Time PHQ-9 Depression Total Score: 1 10/15/19 25 8:16 AM EDT A fall risk assessment has been complete d for the patient 01/11/2025 8:53 AM EDT A Body Mass Index follow-up plan has been documented for the patient 01/11/2025 10:48 AM EDT documented as of this encounter Care Teams Radio Presenter Relationship Specialty Start Date End Date Edmundo Crane MD [address] [place] [id number] PCP - General 12/07/20 documented as of this encounter
--- OUTSIDE RECORDS SUMMARY | 2025-01-14 18:40 | XMS_ITS | Encounter Summary ---
Author Organization [facility] Address [address] [place] [address] Care Team Providers Care Sap Data Architect Name Role Phone Edmundo Crane MD Primary Care Provider [phone] Reason for Visit * Reason Comments Generalized Body Aches Fatigue, body ach es, nausea, chills, no fevers, started 0830 this am Encounter Details Date Type Department Care Team (Late st Contact Info) Description 01/14/2025 6:40 PM EDT Office Visit [facility] [address] [place] [address] Krista Rudd, FOAM DISPENSER [address] [facility] [address] [place] [address] Body aches (Primary Dx); Chronic fatigue; Nausea Social History Tobacco Use Types Packs/Day Years Used Date Smoking Tobacco: Never Passive Smoke Exposure: Never Smokeless Tobacco: Current Snuff Tobacco Cessation:Ready to Q uit: Not Asked; Counseling Given: Not Answered Alcohol Use Standard Drinks/Week Comments Yes 0 [...] Sign Reading Time Taken Comments Blood Pressure 137/78 01/14/2025 6:46 PM EDT Pulse 101 01/14/2025 6:37 PM EDT Temperature 37 C (98.6 F) 01/14/2025 6:37 PM EDT Respiratory Rate 14 01/14/2025 6:37 PM EDT Oxygen Saturation 97% 01/14/2025 6:37 PM EDT Inhaled Oxygen Concentration - - Weight 111 kg (244 lb 14.9 oz) 01/14/2025 6:37 P M EDT Height 188 cm (6' 2 ) 01/14/2025 6:37 PM EDT Body Mass Index 31.45 01/14/2025 6:37 PM EDT documented in this encounter Miscellaneous Notes * Progress Notes - Krista Rudd APRN - 01/14/2025 6:40 PM EDT Subjective Patient ID: Anshul Luciano is a 59 y.o. male. Chief Complaint Patient presents with Generalized Body Aches Fatigue, body aches, nausea, chills, no fevers, started 0830 this am Patient has had issues with fatigue for several months but today he started feeling worse than normal. He has nausea, body aches, chills without fever. He does have sleep apnea and sees sleep medicine at [facility]. They recently adjusted his CPAP settings but he has not noticed a difference in his fatigue yet. They checked his iron levels and ordered an ECHO but it has not been scheduled yet. Fatigue This is a chronic problem. The current episode started more than 1 month ago. The problem has been gradually worsening. Associated symptoms include chills, fatigue, myalgias and nausea. Pertinent negatives include no congestion, coughing, fever or sore throat. Nothing aggravates the symptoms. He has tried nothing for the symptoms. The following portions of the chart were reviewed this encounter and updated as appropriate: Tobacco Allergies Meds Problems Med Hx Surg Hx Fam Hx Review of Systems Constitutional: Positive for chills and fatigue. Negative for fever. HENT: Negative for congestion and sore throat. Respiratory: Negative for cough. Gastrointestinal: Positive for nausea. Musculoskeletal: Positive for myalgias. All other systems reviewed and are negative. Past Medical History[1] Surgical History[2] Visit Vitals BP 137/78 (BP Location: Right arm, Patient Position: Sitting) Pulse 101 Temp 37 ??C (98.6 ??F) (Oral) Resp 14 Ht 1.88 m (6' 2 ) Wt 111 kg (244 lb 14.9 oz) SpO2 97% BMI 31.45 kg/m?? Smoking Status Never BSA 2.41 m?? Objective Physical Exam Vitals reviewed. Constitutional: Appearance: Normal appearance. HENT: Head: Normocephalic. Right Ear: Tympanic membrane normal. Left Ear: Tympanic membrane normal. Nose: Nose normal. Mouth/Throat: Mouth: Mucous membranes are moist. Eyes: Pupils: Pupils are equal, round, and reactive to light. Cardiovascular: Rate and Rhythm: Normal rate. Pulmonary: Effort: Pulmonary effort is normal. Breath sounds: Normal breath sounds. Musculoskeletal: General: Normal range of motion. Cervical back: Normal range of motion. Lymphadenopathy: Cervical: No cervical adenopathy. Skin: General: Skin is warm and dry. Neurological: Mental Status: He is alert and oriented to person, place, and time. Psychiatric: Behavior: Behavior normal. Assessment/Plan Assessment & Plan Body aches Orders: POCT SARS-CoV-2 COVID-19 Influenza A,B Chronic fatigue Orders: CBC and differential Comprehensive metabolic panel Creatine Kinase (CK), Total Vitamin B12 Sedimentation rate, automated C-reactive protein Folate ANTI NUCLEAR AB Nausea Orders: ondansetron ODT (Zofran-ODT) 4 MG disintegrating tablet; Dissolve 1 tablet on the tongue every 8 hours as needed for nausea or vomiting. predniSONE (Deltasone) 20 MG tablet; Take 1 tablet by mouth daily for 5 days. Patient and his are leaving for [place] on . Prednisone and Zofran sent into pharmacy in case he worsens. Labs drawn today to look for another cause of his chronic fatigue. Will follow up with patient on results. FOLLOW UP: Patient needs to follow up with PCP (Primary Care Provider) in 48-72 hours if no improvement or worsening of your condition please go to the ED (Emergency Department). ANY CONDITION CAN CHANGE, despite proper treatment. IF YOUR SYMPTOMS WORSEN, CHANGE, or PERSIST, then get to the nearest Emergency Department (ED), call your PCP, or return to Urgent Care (UC). FOLLOW-UP CARE IS AN IMPORTANT RESPONSIBILITY. Discharge from Urgent Care today does NOT mean that nothing is wrong, but it indicates no emergencyis identified. Urgent Care is not a substitute for your primary care provider/physician (PCP) additional evaluation may be needed. ALWAYS FOLLOW-UP WITH YOUR OWN PHYSICIAN/PRIMARY CARE PROVIDER (PCP) to review this Urgent Care visit, and for review and possible repeat blood or urine tests, x-rays, or other diagnostics. COMPLETE ALL TESTS & SCHEDULE ALL REFERRALS ordered or recommended by Urgent Care. If you need help making an appointment within the recommended time frame, then please call us for assistance. CONTACT URGENT CARE for ALL TESTS, X-RAY, and other RESULTS within 3-5 days. Of note, your results will also be made available immediately in your [facility] My Chart. Please do NOT assume that no news is good news. ALL MEDICATIONS CAN HAVE SIDE EFFECTS & INTERACTIONS. Please review these, and ask your pharmacist or contact your primary care provider for questions orconcerns. Be sure that UC, your pharmacist, and your PCP have a complete list of all medications and supplements you are taking. Note to patient: The 21st Century Cures Act makes medical notes like these available to patients inthe interest of transparency. However, be advised this is a medical document. It is intended as peer to peer communication. It is written in medical language and may contain abbreviations or verbiagethat are unfamiliar. It may appear blunt or direct. Medical documents are intended to carry relevant information, facts as evident, and the clinical opinion of the practitioner. [1] Past Medical History: Diagnosis Date Deficiency [...] Date COLON SURGERY N/A Colon Surgery from [facility] ROTATOR CUFF REPAIR Right 03/31/2023 WISDOM TOOTH EXTRACTION N/A [place] tooth extraction from [facility] documented in this encounter Plan of Treatment Upcoming Encounters Date Type Department Care Team (Late st Contact Info) Description 03/21/2025 3:30 PM EDT Appointment Cardiac Imaging [address] [place] [address] 04/13/2025 9:00 AM EDT Office Visit [facility] [address] [place] [id number] Reji Kaur MD [address] [place] [address] 10/12/2025 9:00 AM EDT Office Visit [facility] [place] [facility] [address], [address] [place] [address] Teodora Saez, FOAM DISPENSER [address] [place] [address] documented as of this encounter Procedures Procedure Name Priority Date/Time Associated Diagnosis Comments CREATINE KINASE, TOTAL, PLASMA Routine 01/14/2025 7:40 PM EDT Chronic fatigue SEDIMENTATION RATE, AUTOMATED Routine 01/14/2025 7:40 PM EDT Chronic fatigue CBC WITH AUTO DIFFERENTIAL Routine 01/14/2025 7:40 PM EDT Chronic fatigue C-REACTIVE PROTEIN, PLASMA Routine 01/14/2025 7:40 PM EDT Chronic fatigue ANTINUCLEAR ANTIBODY (ORESTES) WITH HEP-2 SUBSTRATE, IGG BY IFA (SO) Routine 01/14/2025 7:40 PM EDT Chronic fatigue FOLATE, SERUM Routine 01/14/2025 7:40 PM EDT Chronic fatigue VITAMIN B12, SERUM Routine 01/14/2025 7: 40 PM EDT Chronic fatigue COMPREHENSIVE METABOLIC PANEL, PLASMA Routine 01/14/2025 7:40 PM EDT Chronic fatigue POCT SARS COV2 COVID 19/INFLUENZA A,B Routine 01/14/2025 7:09 PM EDT Body aches documented in this encounter Results * ANTI NUCLEAR AB (01/14/2025 7:40 PM EDT) ORESTES INTERPRETIVE COMMENT See Note 01/18/2025 6:50 PM EDT [facility] ([place]) Anti Nuc Ab Screen <1:80 <1:80 01/18/2025 6:50 PM EDT [facility] ([place]) Blood Venous blood specimen / Unknown Venipuncture / Unknown 01/14/2025 7:40 PM EDT 01/14/2025 9:18 PM EDT Narrative [facility] ([place]) - 01/18/2025 6:50 PM EDT Antinuclear antibodies by IFA negative for homogeneous, speckled, nucleolar, centromere, and nuclear dots patterns. Cytoplasmic antibodies by IFA negative for reticular/AMA, discrete/GW body-like, polar/golgi-like, rods and rings, and cytoplasmic speckled patterns. INTERPRETIVE INFORMATION: ORESTES Interpretive Comment Presence of antinuclear antibodies (ORESTES) is a hallmark feature of systemic autoimmune rheumatic diseases (SARD). However, ORESTES lacks diagnostic specificity and is associated with a variety of diseases (cancers, autoimmune, infectious, and inflammatory conditions) and may also occur in healthy individuals in varying prevalence. The lack of diagnostic specificity requires confirmation of positive ORESTES by more specific serologic tests. ORESTES (nuclear reactivity) positive patterns reported include centromere, homogeneous, nuclear dots, nucleolar, or speckled. ORESTES (cytoplasmic reactivity) positive patterns reported include reticular/AMA, discrete/GW body-like, polar/golgi-like, cytoplasmic speckled or rods and rings. All positive patterns are reported to endpoint titers (1:2560). Reported patterns may help guide differential diagnosis, although they may not be specific for individual antibodies or diseases. Mitotic staining patterns not reported. Negative results do not necessarily rule out SARD. Performed By: [facility] [address] [place] [address] Protein Specialist: Henri Prince MD, PhD CLIA Number: [id number] [employer] Krista Gracia [facility] LAB BLOOD ORDERABLES Denae l Result [facility]) [address] [place] [address] * Folate (01/14/2025 7:40 PM EDT) Folate, Serum >20.0 >4.6 ng/mL 01/14/2025 11:10 PM EDT [facility] Blood Venous blood specimen / Unknown Venipuncture / Unknown 01/14/2025 7:40 PM EDT 01/14/2025 9:18 PM EDT [facility] [employer] FOAM DISPENSER LAB BLOOD ORDERABLES Denae l Result Performing Organization Address City/[facility]/ZIP Co de Phone Number [facility] [address] [place] [address] * (ABNORMAL) C-reactive protein (01/14/2025 7:40 PM EDT) CRP, Plasma 25.7(H) <=8.0 mg/L 01/14/2025 9:37 PM EDT [facility] Blood Venous blood specimen / Unknown Venipuncture / Unknown 01/14/2025 7:40 PM EDT 01/14/2025 9:18 PM EDT Narrative [facility] - 01/14/2025 9:37 PM EDT This CRP test is appropriate for assessment of infection, systemic inflammation and/or tissue injury. To assess cardiovascular disease risk order high sensitivity CRP (CRPH). [facility] LAB BLOOD ORDERABLES Denae l Result [facility] [address] [place] [address] * (ABNORMAL) Sedimentation rate, automated (01/14/2025 7:40 PM EDT) Sedimentation Rate 20(H) <20 mm/hr 2024 9:38 PM EDT [facility] Blood Venous blood specimen / Unknown Venipuncture / Unknown 01/14/2025 7:40 PM EDT 01/14/2025 9:18 PM EDT [facility] FOAM DISPENSER LAB BLOOD ORDERABLES Denae l Result [facility] [address] [place] [address] * Vitamin B12 (01/14/2025 7:40 PM EDT) Vitamin B12, Serum 561 210 - 1,033 pg/mL 01/14/2025 11:10 PM EDT [facility] Blood Venous blood specimen / Unknown Venipuncture / Unknown 01/14/2025 7:40 PM EDT 01/14/2025 9:18 PM EDT [employer] [facility] FO[employer] DISPENSER LAB BLOOD ORDERABLES Denae l Result Performing Organization Address City/[facility]/ZIP Co de Phone Number [facility] [address] [place] [address] * Creatine Kinase (CK), Total (01/14/2025 7:40 PM EDT) Creatine Kinase, Plasma 169 49 - 320 U/L 01/14/2025 9:37 PM EDT [facility] Blood Venous blood specimen / Unknown Venipuncture / Unknown 01/14/2025 7:40 PM EDT 01/14/2025 9:18 PM EDT [facility] [employer]PENSER LAB BLOOD ORDERABLES Denae l Result [facility] [address] [place] [address] * (ABNORMAL) Comprehensive metabolic panel (01/14/2025 7:40 PM EDT) Glucose, Plasma 104(H) 74 - 99 mg/dL 01/14/2025 9:37 PM EDT [facility] BUN, Plasma 12 8 - 23 mg/dL 01/14/2025 9:37 PM EDT [facility] Creatinine, Plasma 1.10 0.70 - 1.20 mg/dL 01/14/2025 9:37 PM EDT [facility] BUN/Creatinine Ratio 11 01/14/2025 9:37 PM EDT [facility] Sodium, Plasma 139 136 - 145 mmol/L 01/14/2025 9:37 PM EDT [facility] Potassium, Plasma 4.3 3.6 - 4.9 mmol/L 01/14/2025 9:37 PM EDT [facility] Chloride, Plasma 102 97 - 107 mmol/L 01/14/2025 9:37 PM EDT [facility] CO2, Plasma 23 22 - 29 mmol/L 01/14/2025 9:37 PM EDT [facility] Anion Gap 14 6 - 16 mmol/L 01/14/2025 9:37 PM EDT [facility] Total Calcium, Plasma 9.1 8.9 - 10.2 mg/dL 01/14/2025 9:37 PM EDT [facility] Total Protein 7.9 6.3 - 7.9 g/dL 01/14/2025 9:37 PM EDT [facility] Albumin, Plasma 4.2 3.5 - 5.2 g/dL 01/14/2025 9:37 PM EDT [facility] AST, Plasma 27 10 - 50 U/L 01/14/2025 9:37 PM EDT [facility] ALT, Plasma 36 10 - 50 U/L 01/14/2025 9:37 PM EDT [facility] Alkaline Phosphatase, Plasma 77 40 - 115 U/L 01/14/2025 9:37 PM EDT [facility] Total Bilirubin, Plasma 0.6 0.2 - 1.1 mg/dL 01/14/2025 9:37 PM EDT [facility] eGFRcr 76.4 mL/min/1.7 3m*2 01/14/2025 9:37 PM EDT [facility] Comment:Reported eGFRcr in m L/min/1.73m2 is based the CKD-EPI 2020 equation that does not use a race coefficient. Blood Venous blood specimen / Unknown Venipuncture / Unknown 01/14/2025 7:40 PM EDT 01/14/2025 9:18 PM EDT us Krista Basil [facility] LAB BLOOD ORDERABLES Denae ghada Result [facility] [address] [place] [address] * (ABNORMAL) CBC and differential (01/14/2025 7:40 PM EDT) WBC Count 14.19(H) 3.70 - 10.30 10*3/uL LAB HEMATOLOGY METHOD 01/14/2025 9:27 PM EDT [facility] RBC Count 6.26(H) 4.60 - 6.10 10*6/uL LAB HEMATOLOGY METHOD 01/14/2025 9:27 PM EDT [facility] HGB 15.9 13.7 - 17.5 g/dL LAB HEMATOLOGY METHOD 01/14/2025 9:27 PM EDT [facility] HCT 50.1 40.0 - 51.0 % LAB HEMATOLOGY METHOD 01/14/2025 9:27 PM EDT [facility] Platelet Count 289 155 - 369 10*3/uL LAB HEMATOLOGY METHOD 01/14/2025 9:27 PM EDT [facility] MCV 80 79 - 98 fL LAB HEMATOLOGY METHOD 01/14/2025 9:27 PM EDT [facility] MCH 25.4(L) 26.0 - 32.0 pg LAB HEMATOLOGY METHOD 01/14/2025 9:27 PM EDT [facility] MCHC 31.7 30.7 - 35.5 g/dL LAB HEMATOLOGY METHOD 01/14/2025 9:27 PM EDT [facility] RDW 15.7(H) 11.5 - 14.5 % LAB HEMATOLOGY METHOD 01/14/2025 9:27 PM EDT [facility] MPV 9.3 8.8 - 12.5 fL LAB HEMATOLOGY METHOD 01/14/2025 9:27 PM EDT [facility] nRBC 0.0 <=0.0 per 100 WBCs LAB HEMATOLOGY METHOD 01/14/2025 9:27 PM EDT [facility] Differential Type Automated LAB HEMATOLOGY METHOD 01/14/2025 9:27 PM EDT [facility] Neutrophils % 85 % LAB HEMATOLOGY METHOD 01/14/2025 9:27 PM EDT [facility] Lymphocytes % 9 % LAB HEMATOLOGY METHOD 01/14/2025 9:27 PM EDT [facility] Monocytes % 5 % LAB HEMATOLOGY METHOD 01/14/2025 9:27 PM EDT [facility] Eosinophils % 0 % LAB HEMATOLOGY METHOD 01/14/2025 9:27 PM EDT [facility] Basophils % 1 % LAB HEMATOLOGY METHOD 01/14/2025 9:27 PM EDT [facility] Immature Granulocytes % 0 % LAB HEMATOLOGY METHOD 01/14/2025 9:27 PM EDT [facility] Neutrophils Absolute 12.14(H) 1.60 - 6.10 10*3/uL LAB HEMATOLOGY METHOD 01/14/2025 9:27 PM EDT [facility] Lymphocytes Absolute 1.25 1.20 - 3.90 10*3/uL LAB HEMATOLOGY METHOD 01/14/2025 9:27 PM EDT [facility] Monocytes Absolute 0.64 0.30 - 0.90 10*3/uL LAB HEMATOLOGY METHOD 01/14/2025 9:27 PM EDT [facility] Eosinophils Absolute 0.03 0.00 - 0.50 10*3/uL LAB HEMATOLOGY METHOD 01/14/2025 9:27 PM EDT [facility] Basophils Absolute 0.07 0.00 - 0.10 10*3/uL LAB HEMATOLOGY METHOD 01/14/2025 9:27 PM EDT [facility] Immature Granulocytes Absolute 0.06 0.00 - 0.06 10*3/uL LAB HEMATOLOGY METHOD 01/14/2025 9:27 PM EDT [facility] Blood Venous blood specimen / Unknown Venipuncture / Unknown 01/14/2025 7:40 PM EDT 01/14/2025 9:18 PM EDT [facility] - 01/14/2025 9:27 PM EDT Therapeutic decision making should be based on absolute values, rather than percentages. us Krista Rudd APRN LAB BLOOD ORDERABLES Denae l Result [facility] [address] [place] [address] * POCT SARS-CoV-2 COVID-19 Influenza A,B (01/14/2025 7:09 PM EDT) POCT Influenza A PCR Not Detected Not Detected POCT Influenza B PCR Not Detected Not Detected POCT COVID 19 PCR Not Detected Not Detected POCT COVID/Flu A,B Kit Lot [id number] POCT COVID/FLU A,B Kit Expiration 123,126 Nasopharyngeal Swab Nasopharyngeal structure / Unknown 01/14/2025 7:09 PM EDT Krista Rudd FOAM DISPENSER POINT OF CARE TEST ENTER/ EDIT ORDERABLES Final Result documented in this encounter Visit Diagnoses Diagnosis Body aches- Primary Generalized pain Chronic fatigue Other malaise and fatigue Nausea Nausea alone documented in this encounter Additional Health Concerns Infection Onset Date Last Indicated Resolved Time COVID-19 Rule-Out 01/14/2025 01/14/2025 01/14/2025 7:10 PM EDT Assessment Noted Time PHQ-9 Depression Total Score: 1 10/15/19 25 8:16 AM EDT A fall risk assessment has been complete d for the patient 01/11/2025 8:53 AM EDT A Body Mass Index follow-up plan has been documented for the patient 01/15/2025 8:31 AM EDT documented as of this encounter Care Teams Sap Data Architect Relationship Specialty Start Date End Date Edmundo Crane MD [address] [facility] [address] [place] [id number] PCP - General 12/07/20 documented as of this encounter
--- OUTSIDE RECORDS SUMMARY | 2025-01-15 14:15 | XMS_ITS | Encounter Summary ---
Author Organization [facility] Address [address] [place] [address] Care Team Providers Care Wind Up Worker Name Role Phone Edmundo Crane MD Primary Care Provider [phone] Encounter Details Date Type Department Care Team (Latest Contact Info) Description 01/15/2025 2:15 PM EDT - 01/15/2025 11:59 PM EDT Hospital Encounter [facility] X-Ray [address] [facility], [address] [place] [address] Chills Discharge Disposition: Home or Self Care Social [...] AM EDT documented as of this encounter Medications at Time of Discharge amLODIPine (Norvasc) 10 MG tabletIndications:Pr imary hypertension Take 1 tablet (10 mg) by mouth daily. 90 tablet 3 10/14/2024 6 ascorbic acid (vitamin C) 100 MG tabletIndications:Ir on deficiency Take 1 tablet by mouth daily. Please take with Iron supplement. 90 tablet 12/16/2024 aspirin 81 MG EC tablet TAKE 1 TABLET BY MOUTH DAILY 09/07/2020 cholecalciferol (Vitamin D-3) 250 MCG (29367 UT) capsule Take 1 capsule (10,000 Units) by mouth daily. Takes 62194 daily Evolocumab (Repatha SureClick) 140 MG/ML solution auto-injector Inject 1 mL (140 mg) under the skin every 14 (fourteen) days. 6 mL 1 2024 ferrous gluconate (Fergon) 324 (38 Fe) MG tabletIndications:Ot her fatigue,Iron deficiency Take 1 tablet by mouth daily with breakfast. 90 tablet 12/16/2024 fexofenadine (Shanti) 180 MG tablet Take 1 tablet (180 mg) by mouth daily. Multiple Vitamin (multivitamin) tablet Take 1 tablet by mouth daily. One a day multivitamin with minerals (Centrum) 9-200 mg-mcg tablet split tablet 1 (one) time each day at the same time. ondansetron ODT (Zofran-ODT) 4 MG disintegrating tabletIndications:Na usea Dissolve 1 tablet on the tongue every 8 hours as needed for nausea or vomiting. 20 tablet 01/14/2025 propranolol LA (Inderal LA) 60 MG 24 hr capsuleIndications:P rimary hypertension Take 1 capsule (60 mg) by mouth daily. Do not crush, chew, or split. 90 capsule 3 10/14/2024 6 psyllium (Metamucil Smooth Texture) 58.6 % powder 1 (one) time each day at the same time. 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 10 tablet 3 10/14/2024 tadalafil (Cialis) 10 MG tablet as needed for erectile dysfunction. 08/18/2024 tamsulosin (Flomax) 0.4 MG 24 hr capsule Take 1 capsule (0.4 mg) by mouth daily. 10/03/2024 testosterone cypionate (Depo-Testosterone) 200 MG/ML injection every 14 (fourteen) days. 09/13/2024 valsartan (Diovan) 320 MG tabletIndications:Pr imary hypertension Take 1 tablet (320 mg) by mouth daily. 90 tablet 3 10/14/2024 6 Vitamin E 180 MG (400 UNIT) capsule 1 (one) time each day at the same time. amoxicillin-clavulan ate (Augmentin) 875-125 MG tabletIndications:Ch ills Take 1 tablet by mouth 2 times a day for 10 days. 20 tablet 01/15/2025 5 predniSONE (Deltasone) 20 MG tabletIndications:Na usea Take 1 tablet by mouth daily for 5 days. 5 tablet 01/14/2025 5 documented as of this encounter Plan of Treatment Upcoming Encounters Date Type Department Care Team (Late st Contact Info) Description 03/21/2025 3:30 PM EDT Appointment Cardiac Imaging [address] [place] [address] 04/13/2025 9:00 AM EDT Office Visit [facility] Sleep Disorder Center [address] [place] [address] Reji Kaur MD [address] [facility] [address] [place] [address] 10/12/2025 9:00 AM EDT Office Visit [facility] [place] [address] [facility], [address] [place] [address] Teodora Saez, POISON INFORMATION SPECIALIST [address] [place] [address] documented as of this encounter Procedures Procedure Name Priority Date/Time Associated Diagnosis Comments XR CHEST 2 VIEWS STAT 01/15/2025 2:18 PM EDT Chills documented in this encounter Results * XR Chest 2 Views (01/15/2025 2:18 PM EDT) Anatomical Region Laterality Modality Chest Digital Radiogra phy Impressions 01/15/2025 2:48 PM EDT No acute pathology on current chest radiograph. CRITICAL RESULT: No. COMMUNICATION: Per this written report. Drafted by Madeleine Hatfield MD on 01/15/2025 2:47 PM Final report signed by Madeleine Hatfield MD on 01/15/2025 2:48 PM Narrative 01/15/2025 2:48 PM EDT CLINICAL INDICATION: fever/chills TECHNIQUE: Single AP view of chest. COMPARISON: One day prior FINDINGS: The cardiomediastinal contours are within normal limits. No pneumothorax or pleural effusion. No lung consolidation or airspace disease. No acute osseous abnormality. Procedure Note Madeleine Hatfield MD - 01/15/2025 CLINICAL INDICATION: fever/chills TECHNIQUE: Single AP view of chest. COMPARISON: One day prior FINDINGS: The cardiomediastinal contours are within normal limits. No pneumothoraxor pleural effusion. No lung consolidation or airspace disease. No acuteosseous abnormality. IMPRESSION: No acute pathology on current chest radiograph. CRITICAL RESULT: No. COMMUNICATION: Per this written report. Drafted by Madeleine Hatfield MD on 01/15/2025 2:47 PM Final report signed by Madeleine Hatfield MD on 01/15/2025 2:48 PM Krista Rudd POISON INFORMATION SPECIALIST IMG XR PROCEDURES Final R esult documented in this encounter Visit Diagnoses Diagnosis Chills Chills (without fever) documented in this encounter Additional Health Concerns Assessment Noted Time PHQ-9 Depression Total Score: 1 10/15/19 25 8:16 AM EDT A fall risk assessment has been complete d for the patient 01/11/2025 8:53 AM EDT A Body Mass Index follow-up plan has been documented for the patient 01/15/2025 6:19 PM EDT documented as of this encounter Care Teams Wind Up Worker Relationship Specialty Start Date End Date Edmundo Crane MD [address] [phone] PCP - General 12/07/20 documented as of this encounter
--- OUTSIDE RECORDS SUMMARY | 2025-01-15 15:00 | XMS_ITS | Encounter Summary ---
Author Organization [facility] Address [address] [place] [address] Care Team Providers Care Still Photographer Name Role Phone Edmundo Crane MD Primary Care Provider [phone] Encounter Details Date Type Department Care Team (Late st Contact Info) Description 01/15/2025 3:00 PM EDT Clinical Support [facility] Primary and Acute Care [address] [place] [address] Krista Rudd S, RN HOUSE SUPERVISOR [address] [place] [address] Body aches (Primary Dx) Social History Tobacco Use Types Packs/Day Years [...] AM EDT documented as of this encounter Miscellaneous Notes * Clinician Note - Tatiana eLrma - 01/15/2025 3:00 PM EDT Patient came in to give a urine sample and get a dipstick ran with sample per providers request. Patient was able to void, and provider spoke to patient regarding UA results. documented in this encounter Plan of Treatment Upcoming Encounters Date Type Department Care Team (Late st Contact Info) Description 03/21/2025 3:30 PM EDT Appointment Cardiac Imaging [address] [place] [address] 04/13/2025 9:00 AM EDT Office Visit [facility] Sleep Disorder Center [address] [place] [address] Reji Kaur MD [address] [place] [address] 10/12/2025 9:00 AM EDT Office Visit [facility] [place] [address] [facility], [address] [place] [address] Teodora Saez, RN HOUSE SUPERVISOR [address] [place] [address] documented as of this encounter Procedures Procedure Name Priority Date/Time Associated Diagnosis Comments POCT URINALYSIS DIPSTICK Routine 01/15/2025 3:07 PM EDT Body aches documented in this encounter Results * (ABNORMAL) POCT Urinalysis dipstick (01/15/2025 3:07 PM EDT) POCT Urine Color Other POCT Urine Clarity Clear POCT Glucose Urine Negative Negative mg/dL POCT Bilirubin, Urine Negative Negative POCT Ketones, Urine Negative Negative mg/dL POCT Specific Metz, Urine 1.025 POCT Blood, Urine Negative Negative POCT pH, Urine 6.0 5.0 to 8.0 POCT Protein, Urine 30(A) Negative mg/dL POCT Urobilinogen, Urine 0.2 0.2, 1 E.U./dL POCT Nitrite, Urine Negative Negative POCT Leukocyte Esterase, Urine Negative Negative Test Strip Lot Number [id number] Test Strip Lot Expiration 10/24/2025 Urine Urine specimen obtained by clean catch procedure / Unknown 01/15/2025 3:07 PM EDT Krista Rudd RN HOUSE SUPERVISOR POINT OF CARE TEST ENTER/ EDIT ORDERABLES Final Result documented in this encounter Visit Diagnoses Diagnosis Body aches- Primary Generalized pain documented in this encounter Additional Health Concerns Assessment Noted Time PHQ-9 Depression Total Score: 1 10/15/19 25 8:16 AM EDT A fall risk assessment has been complete d for the patient 01/11/2025 8:53 AM EDT A Body Mass Index follow-up plan has been documented for the patient 01/15/2025 6:19 PM EDT documented as of this encounter Care Teams Still Photographer Relationship Specialty Start Date End Date Edmundo Crane MD [address] [address] PCP - General 12/07/20 documented as of this encounter
--- OUTSIDE RECORDS SUMMARY | 2025-02-07 07:14 | XMS_ITS | Encounter Summary ---
Author Organization [facility] Address [address] [place] [address] Care Team Providers Care Pressroom Foreman Name Role Phone Edmundo Crane MD Primary Care Provider [phone] Encounter Details Date Type Department Care Team (Latest Contact Info) Description 12/28/2024 Travel Social History Tobacco Use Types Packs/Day Years [...] AM EDT documented as of this encounter Plan of Treatment Upcoming Encounters Date Type Department Care Team (Late st Contact Info) Description 03/21/2025 3:30 PM EDT Appointment Cardiac Imaging [address] [place] [address] 04/13/2025 9:00 AM EDT Office Visit [facility] Sleep Disorder Center [address] [place] [address] Reji Kaur MD [address] [place] [address] 10/12/2025 9:00 AM EDT Office Visit [facility] [place] [address] [facility], [address] [place] [address] Teodora Saez, ENGINEERING AID [address] [place] [address] documented as of this encounter Visit Diagnoses Not on filedocumented in this encounter Additional Health Concerns Assessment Noted Time PHQ-9 Depression Total Score: 1 10/15/19 25 8:16 AM EDT A fall risk assessment has been complete d for the patient 12/28/2024 8:12 PM EDT A Body Mass Index follow-up plan has been documented for the patient 12/29/2024 2:13 AM EDT documented as of this encounter Care Teams Pressroom Foreman Relationship Specialty Start Date End Date Edmundo Crane MD [address] [place] [address] PCP - General 12/07/20 documented as of this encounter
--- OUTSIDE RECORDS SUMMARY | 2025-02-07 07:14 | XMS_ITS | Encounter Summary ---
Author Organization [facility] Address [address] [place] [address] Care Team Providers Care Label Printing Machinist Name Role Phone Edmundo Crane MD Primary Care Provider [phone] Hamlet Zaldivar MD Unavailable [phone] Reason for Visit * Reason Comments Med Refill Encounter Details Date Type Department Care Team (Late st Contact Info) Description 11/12/2021 Refill [facility] [place] [address] [facility], [address] [place] [address] Brittaney Ivan, JHOAN [address] [place] [address] Social History Tobacco Use Types Packs/Day Years Used Date Smoking Tobacco: Never Smokeless Tobacco: Never Alcohol Use Standard Drinks/Week Comments Yes 0 (1 standard drink = 0.6 oz pur e alcohol) up to 1 or 2 drinks per month PHQ-2 Answer Date Recorded Patient Health Questionnaire-2 Score 0 09/17/2021 Sex and Gender Information Value Date Recorded Sex Assigned at Male 12/20/2021 8:47 AM EDT Legal Sex Male 8:53 PM EDT Gender Identity Male 12/20/2021 8:47 AM EDT Sexual Orientation Straight 12/20/2021 8: 47 AM EDT COVID-19 Exposure Response Date Recorded In the last month, have you been in contact with someone who was confirmed or suspected to have Coronavirus / COVID-19? No / Unsure 10/21/2021 12:54 PM EDT documented as of this encounter Plan of Treatment Upcoming Encounters Date Type Department Care Team (Late st Contact Info) Description 03/21/2025 3:30 PM EDT Appointment Cardiac Imaging [address] [place] [address] 04/13/2025 9:00 AM EDT Office Visit [facility] Sleep Disorder Center [address] [place] [address] Reji Kaur MD [address] [facility] [address] [place] [address] 10/12/2025 9:00 AM EDT Office Visit [facility] [place] [address] [facility], [address] [place] [address] Teodora Saez, SURGICAL TECHNICIAN [address] [place] [address] documented as of this encounter Visit Diagnoses Not on filedocumented in this encounter Additional Health Concerns Infection Onset Date Last Indicated Resolved Time COVID-19 Rule-Out 01/14/2025 01/14/2025 01/14/2025 7:10 PM EDT Assessment Noted Time A fall risk assessment has been complete d for the patient 04/05/2021 3:33 PM EDT documented as of this encounter Care Teams Label Printing Machinist Relationship Specialty Start Date End Date Edmundo Crane MD [address] [place] [address] PCP - General 12/07/20 Hamlet Zaldivar MD [address] [place] [address] PCP - Resident Internal Medicine 06/11/21 03/03/24 documented as of this encounter
--- OUTSIDE RECORDS SUMMARY | 2025-02-07 07:14 | XMS_ITS | Encounter Summary ---
Author Organization [facility] Address [address] [place] [address] Care Team Providers Care Special Events Director Name Role Phone Edmundo Crane MD Primary Care Provider [phone] Encounter Details Date Type Department Care Team (Latest Contact Info) Description 01/11/2025 Travel Social History Tobacco Use Types Packs/Day [...] EDT Appointment Cardiac Imaging [address] [place] [address] 04/13/2025 9:00 AM EDT Office Visit [facility] Sleep Disorder Center [address] [place] [address] Reji Kaur MD [address] [place] [address] 10/12/2025 9:00 AM EDT Office Visit [facility] [place] [address] [facility], [address] [place] [address] Teodora Saez, SUPERVISOR [employer] [address] [place] [address] documented as of this encounter [...] documented as of this encounter Care Teams Special Events Director Relationship Specialty Start Date End Date Edmundo Crane MD [address] [place] [address] PCP - General 12/07/20 documented as of this encounter
--- OUTSIDE RECORDS SUMMARY | 2025-02-07 07:14 | XMS_ITS | Encounter Summary ---
Author Organization [facility] Address [address] [place] [address] Care Team Providers Care Chief Substation Operator Name Role Phone Edmundo Crane MD Primary Care Provider [phone] Encounter Details Date Type Department Care Team (Latest Contact Info) Description 01/15/2025 Travel Social History Tobacco Use Types Packs/Day [...] EDT Appointment Cardiac Imaging [address] [place] [address] 04/13/2025 9:00 AM EDT Office Visit [facility] Sleep Disorder Center [address] [place] [address] Reji Kaur MD [address] [place] [address] 10/12/2025 9:00 AM EDT Office Visit [facility] [place] [address] [facility], [address] [place] [address] Teodora Saez, CREW MANAGER [address] [place] [address] documented as of this encounter [...] documented as of this encounter Care Teams Chief Substation Operator Relationship Specialty Start Date End Date Edmundo Crane MD [address] [place] [address] PCP - General 12/07/20 documented as of this encounter
--- OUTSIDE RECORDS SUMMARY | 2025-02-07 07:14 | XMS_ITS | Encounter Summary ---
Author Organization [facility] Address [address] [place] [address] Care Team Providers Care Diesel Dinkey Operator Name Role Phone Edmundo Crane MD Primary Care Provider [phone] Encounter Details Date Type Department Care Team (Late st Contact Info) Description 12/16/2024 Telephone [facility] [address] [place] [address] Debbie Pardo, REBA [address] [place] [address] Social History Tobacco Use Types Packs/Day Years [...] as of this encounter Miscellaneous Notes * Telephone Encounter - Jayda Abdi PharmD - 12/16/2024 11:00 AM EDT Ok sounds great thanks! documented in this encounter Plan of Treatment Upcoming Encounters Date Type Department Care Team (Late st Contact Info) Description 03/21/2025 3:30 PM EDT Appointment Cardiac Imaging [address] [place] [address] 04/13/2025 9:00 AM EDT Office Visit [facility] Sleep Disorder Center [address] [place] [address] Reji Kaur MD [address] [place] [address] 10/12/2025 9:00 AM EDT Office Visit [facility] [place] [address], [address] [place] [address] Teodora Saez, ORANGE PEEL OPERATOR [address] [place] [address] documented as of this encounter Visit Diagnoses Not on filedocumented in this encounter Additional Health Concerns Assessment Noted Time PHQ-9 Depression Total Score: 1 10/15/19 25 8:16 AM EDT A fall risk assessment has been complete d for the patient 11/21/2024 3:42 PM EDT A Body Mass Index follow-up plan has been documented for the patient 12/16/2024 1:07 AM EDT documented as of this encounter Care Teams Diesel Dinkey Operator Relationship Specialty Start Date End Date Edmundo Crane MD [address] [place] [address] PCP - General 12/07/20 documented as of this encounter
--- OUTSIDE RECORDS SUMMARY | 2025-02-07 07:14 | XMS_ITS | Encounter Summary ---
Author Organization [facility] Address [address] [place] [address] Care Team Providers Care Cracker Sprayer Name Role Phone Edmundo Crane MD Primary Care Provider [phone] Encounter Details Date Type Department Care Team (Late st Contact Info) Description 01/15/[address] Primary and Acute Care [address] [place] [address] Krista Rudd, FLIGHT RADIO OPERATOR [address] [place] [address] Chills (Primary Dx) Social History Tobacco Use Types [...] EDT Appointment Cardiac Imaging [address] [place] [address] 04/13/2025 9:00 AM EDT Office Visit [facility] Sleep Disorder Center [address] [place] [address] Reji Kaur MD [address] [place] [address] 10/12/2025 9:00 AM EDT Office Visit [facility] [place] [address] [facility], [address] [place] [address] Teodora Saez, FLIGHT RADIO OPERATOR [address] [place] [address] documented as of this encounter Results * XR Chest 2 [...] Madeleine Hatfield MD on 01/15/2025 2:48 PM us Krista Rudd FLIGHT RADIO OPERATOR IMG XR PROCEDURES Final R esult documented in this encounter Visit Diagnoses Diagnosis Chills- Primary Chills (without fever) Chills Chills (without fever) documented in this encounter Additional Health Concerns Assessment Noted Time PHQ-9 Depression Total Score: 1 10/15/19 25 8:16 AM EDT A fall risk assessment has been complete d for the patient 01/11/2025 8:53 AM EDT A Body Mass Index follow-up plan has been documented for the patient 01/15/2025 6:19 PM EDT documented as of this encounter Care Teams Cracker Sprayer Relationship Specialty Start Date End Date Edmundo Crane MD [address] [address] PCP - General 12/07/20 documented as of this encounter
--- OUTSIDE RECORDS SUMMARY | 2025-02-07 07:14 | XMS_ITS | Clinical Summary ---
Author Organization [facility] ([place], [place], [place], [place]) Address [address] [place] [address] Care Team Providers Care Acupressure Therapist Name Role Phone Fritz Stafford MD Primary Care Provider [phone] Allergies No known active allergies Medications cephalexin (KEFLEX) 500 MG capsule Take 1 capsule (500 mg total) by mouth 3 (three) times daily for 10 days. 30 capsule 01/07/2025 01/18/20 25 Encounters Date Type Department Care Team Description 01/06/2025 10:52 PM EDT - 01/07/2025 12:08 AM EDT Emergency [facility] Emergency Department [address] [place] [address] Regine Inman MD Finger laceration (Primary Dx) Discharge Disposition: Home or Self Care 01/06/2025 Travel from Last 3 Months Immunizations Name Administration Dates Next Due Tdap 01/06/2025 Social History Tobacco Use Types Packs/Day Years [...] on file Sexual Orientation Not on file Last Filed Vital Signs Vital Sign Reading [...] Mass Index 31.46 01/06/2025 10:51 PM EDT Plan of Treatment Health Maintenance Due Date Last Done Comments CT Colonography 1963 Colonoscopy 1963 Colorectal Cancer Screening 1963 FOBT/FIT 1963 Fit-DNA (Cologuard) 1963 Sigmoidoscopy 1963 Depression Screening (12+) 1975 HIV Screening 10/16/1978 Hepatitis C Screening 10/16/1981 Lipid Panel 10/16/1998 Pneumococcal 50+ years (2 of 2 - PPSV23) 12/07/2021 12/07/2020 COVID-19 VACCINE (2023-2 5 season) 2024 05/07/2023, 10/25/2021, 04/26/2021, Additional history exists Influenza Vaccine (#1) 2025 05/24/2020 Tobacco Cessation Counseling and Screening (12+) 01/06/2026 01/06/2025 DTAP/TDAP/TD VACCINES (3 - T d or Tdap) 01/06/2035 01/06/2025, 01/07/2019 Respiratory Syncytial Virus (RSV) Adult or (1 - 1-dose 75+ series) 10/16/2038 Shingles Vaccine (Zoster) Completed 06/11/2021, Procedures Procedure Name Priority Date/Time Associated Diagnosis Comments FS_SJH_MODEL_LACERA TION REPAIR Routine 01/07/2025 12:07 AM EDT XR HAND 3 VIEWS LEFT STAT 01/06/2025 11:09 PM EDT from Last 3 Months Results * Laceration repair (01/07/2025 12:07 AM [...] Alternatives discussed: Delayed treatment and no treatment [place] protocol: Patient identity confirmed: Verbally with patient [...] electronically signed by Srini Ortiz MD Voice rig supervisor technology (Power RoomClipibe) is used for the dictation of this note and sound-alike words might be erroneously placed despite reviewing this note for accuracy. Errors in dictation may reflect use of voice recognition software and not all errors in rig supervisor may have been detected prior to signing. [...] electronically signed by Srini Ortiz MD Voice rig supervisor technology (Power RoomClipibe) is used for the dictation of this note and sound-alike words might be erroneously placed despite reviewing this note for accuracy. Errors in dictation may reflect use of voice recognition software and not all errors in rig supervisor may have been detected prior to signing. Belinda Mccabe PA-C IMG DIAGNOSTIC IMAGING OR DERABLES Final Result from Last 3 Months Insurance BLUE CROSS/BLUE SHIELD Care Teams Acupressure Therapist Relationship Specialty Start Date End Date Fritz Stafford MD [address] [place] [address] [place] [address] PCP - General General Internal Medicine 01/06/25
--- OUTSIDE RECORDS SUMMARY | 2025-02-07 07:14 | XMS_ITS | Patient Health Record ---
Author Organization [facility] Address [address] [place] [address] Care Team Providers Care Paint Line Operator Name Role Phone Donal Condehen Primary Care Provider [phone] Migration, Provider Unavailable Unavailable Allergies No Known Allergies Medications Medication SIG (Take, Route, Frequency, Duration) Notes Start Date End Date Status Valsartan-hydroCHLORO thiazide 80-12.5 MG 1 tab(s) orally once a day; Duration: 30 day(s) Active IBU 800 MG 1 tab(s) orally 3 times a day; Duration: 30 Active Vitamin E 400 UNIT 1 cap(s) orally once a day; Duration: 30 day(s) Active Metamucil Smooth Texture 58.6 % as directed orally once a day; Duration: 7 day(s) Active Multivitamin MULTIPLE VITAMINS 1 CAP(S) ORALLY ONCE A DAY *Please review and pick correct strength-formulatio n from [employer] options. If intended option is not shown, discontinue and re-order from Quick Search* Active Shanti Allergy 180 MG 1 tab(s) orally once a day Active Atorvastatin Calcium 40 MG 1 tab(s) orally once a day; Duration: 30 day(s) Active Aspirin 81 MG 1 TAB(S) ORALLY ONCE A DAY *Please review and pick correct strength-formulatio n from [employer] options. If intended option is not shown, discontinue and re-order from Quick Search* Active amLODIPine Besylate 10 MG 1 tab(s) orally once a day; Duration: 30 day(s) Active Immunizations Vaccine Route Administration Date Status Comme nts Influenza-Fluzone 3+years (NON-MEDICARE) IM Intramuscular 06/02/2017 Administered Influenza-Fluzone 3+years (NON-MEDICARE) IM Intramuscular 06/16/2018 Administered Hep A Adult 2 Dose IM Intramuscular 01/07/2019 Administere d Hep A Adult 2 Dose IM Intramuscular 09/17/2019 Administere d FLUZONE 6MO - OLDER Unknown 05/31/2019 Administered Flublok IM Intramuscular 05/24/2020 Administered Adacel (Tdap) IM Intramuscular 01/07/2019 Administered Problems Problem Type SNOMED Code ICD Code Onset Dates Problem Status W/U Status Risk Notes Problem Episodic tension-typ e headache (288920874) Episodic tension-type headache, not intractable (G44.219) Active confirmed Problem Essential hypertension (57909542) Essential (primary) hypertension (I10) Active confirmed Problem Arthropathy (175058688) Arthropathy, unspecified (M12.9) Active confirmed Problem Obstructive sleep apnea syndrome (92893594) HUNG (obstructive sleep apnea) (G47.33) Active confirmed Problem Diverticular disease of colon (202982110) Diverticulosis of large intestine without hemorrhage (K57.30) Active confirmed Problem Mixed hyperlipidemia (459149561) Hyperlipemia, mixed (E78.2) Active confirmed Problem Perforated diverticulum of large intestine (997298689) Diverticulitis of large intestine with perforation without bleeding (K57.20) Active confirmed Problem Familial hypercholesterolemia (739593334) Familial hypercholesterolemia (E78.01) Active confirmed Encounters Encounter Location Date Provider Diagnosis [facility] [address] [facility] [address] [place] [address] 10/29/2024 Provider Migration Plan Of Treatment Pending Test Test Name Order Date Urinalysis 06/16/2018 Urinalysis 07/02/2016 N-Lipid Panel 08/17/2012 C-VITAMIN C 06/16/2011 C-CBC 02/15/2014 C-CMP 02/15/2014 C-LIPID PANEL 02/15/2014 M-Hemoglobin A1C 03/08/2020 M-Vitamin D 25 Hydroxy 03/01/2020 Medications Administered Medication Instructions Date of Administration Dosage Notes Triamcinolone Acetonide 40mg Injection 01/11/2018 1 mL Medical (General) History Medical History History ICD Code anxiety Diverticulitis Hyperlipidemia B12 vitamin deficiency Sleep apnea - treated with C PAP initially but now treated wt Mandibular advancement device HTN Surgical History Surgery Date(Month/Year) Hospitalization History Reason Date(Month/Year) Diverticulitis 2014
--- OUTSIDE RECORDS SUMMARY | 2025-02-07 07:14 | XMS_ITS | Encounter Summary ---
Author Organization [facility] Address [address] [place] [address] Care Team Providers Care Remedial Teacher Name Role Phone Edmundo Crane MD Primary Care Provider [phone] Hamlet Zaldivar MD Unavailable [phone] Reason for Visit * Reason Comments Med Refill Encounter Details Date Type Department Care Team (Late st Contact Info) Description 07/15/2021 Refill [facility] [place] [address] [place] [id number] Brittaney Ivan PA [address] [place] [address] Social History Tobacco Use Types Packs/Day Years Used Date Smoking Tobacco: Never Smokeless Tobacco: Never Alcohol Use Standard Drinks/Week Comments No 0 (1 standard drink = 0.6 oz pur e alcohol) PHQ-2 Answer Date Recorded Patient Health Questionnaire-2 Score 0 06/11/2021 Sex and Gender Information Value Date Recorded [...] PM EDT Appointment Cardiac Imaging [address] [place] [address] 04/13/2025 9:00 AM EDT Office Visit [facility] [address] [place] [address] Reji Kaur MD [address] [facility] [address] [place] [address] 10/12/2025 9:00 AM EDT Office Visit [facility] [place] [address], [address] [place] [address] Teodora Saez, EDGER MACHINE HELPER [address] [place] [address] documented as of this encounter Visit Diagnoses Not on filedocumented in this encounter Additional Health Concerns Infection Onset Date Last Indicated Resolved Time COVID-19 Rule-Out 01/14/2025 01/14/2025 01/14/2025 7:10 PM EDT Assessment Noted Time A fall risk assessment has been complete d for the patient 04/05/2021 3:33 PM EDT documented as of this encounter Care Teams Remedial Teacher Relationship Specialty Start Date End Date Edmundo Crane MD [address] [facility] [address] [place] [address] PCP - General 12/07/20 Hamlet Zaldivar MD [address] [place], [place] [phone] PCP - Resident Internal Medicine 06/11/21 03/03/24 documented as of this encounter
--- OUTSIDE RECORDS SUMMARY | 2025-02-07 07:14 | XMS_ITS | Encounter Summary ---
Author Organization [facility] Address [address] [place] [address] Care Team Providers Care Production Hardener Name Role Phone Edmundo Crane MD Primary Care Provider [phone] Reason for Visit * Reason Onset Date Comments Results 01/15/2025 Spoke to patient regarding results and next steps for him per providers requests. Patient understood. Encounter Details Date Type Department Care Team (Late st Contact Info) Description 01/15/2025 Results Follow-Up [facility] [address] [place] [address] Krista Rudd, SERVICE MEMBER [address] [place] [address] Results (Spoke to patient regarding results and next steps for him per providers requests. Patient understood. ) Social History Tobacco Use Types Packs/Day Years [...] encounter Miscellaneous Notes * Telephone Encounter - Tatiana Lerma - 01/15/2025 10:25 AM EDT Spoke to patient regarding results and next steps for him per providers requests. Patient understood. ----- Message from Krista Rudd APRN sent at 01/15/2025 8:19 AM EDT ----- Please call Anshul and let him know some of his labs resulted. His sed rate and CRP were both slightly elevated as well as his white blood cell count. This could indicate a current infection especially with him feeling more poorly yesterday than normal as opposed to a chronic issue. I know they are leaving to go out of town later this week and I am not opposed to sending him in some antibiotics to start. As far as further testing goes the only other thing we could check in this clinic is urine dip and I could order a chest Xray. He would have to go over to [facility] to get the chest Xray. If they would like to proceed with doing those two tests let me know. He could come in for a direct support professional caregiver for the urine dip and then go over to [facility] for the chest Xray. ----- Message ----- From: Leny Rdz RN Sent: 01/14/2025 7:10 PM EDT To: Krista Rudd APRN * Telephone Encounter - Leny Rdz RN - 01/15/2025 9:05 AM EDT RN contacted patient to relay poc update per provider, no answer, left VM for callback at his convenience. documented in this encounter Plan of Treatment Upcoming Encounters Date Type Department Care Team (Late st Contact Info) Description 03/21/2025 3:30 PM EDT Appointment Cardiac Imaging [address] [place] [address] 04/13/2025 9:00 AM EDT Office Visit [facility] [address] [place] [address] Reji Kaur MD [address] [place] [address] 10/12/2025 9:00 AM EDT Office Visit [facility] [place] [address], [address] [place] [address] Teodora Saez, SERVICE MEMBER [address] [place] [address] documented as of this encounter [...] documented as of this encounter Care Teams Production Hardener Relationship Specialty Start Date End Date Edmundo Crane MD [address] [place] [address] PCP - General 12/07/20 documented as of this encounter
--- OUTSIDE RECORDS SUMMARY | 2025-02-07 07:14 | XMS_ITS | Referral Summary ---
Author Organization [employer] [facility] ([place], [place], [place], [place]) Address [address] [place] [address] Care Team Providers Care Assembler Watch Train Name Role Phone Fritz Stafford MD Primary Care Provider [phone] Encounters Date Type Department Care Team Description 01/06/2025 10:52 PM EDT - 01/07/2025 12:08 AM EDT Emergency [facility] [address] [place] [address] Regine Inman MD Finger laceration (Primary Dx) Discharge Disposition: Home or Self Care 01/06/2025 Travel from Last 3 Months Allergies No known active allergies Medications cephalexin (KEFLEX) 500 MG capsule Take 1 capsule (500 mg total) by mouth 3 (three) times daily for 10 days. 30 capsule 01/07/2025 01/18/20 25 Immunizations Name Administration Dates Next Due Tdap [...] 01/06/2025 10:51 PM EDT Plan of Treatment Not on file Procedures Procedure Name Priority Date/Time Associated Diagnosis [...] Alternatives discussed: Delayed treatment and no treatment [place] protocol: Patient identity confirmed: Verbally with patient [...] Dressing: Non-adherent dressing and splint for protection us Belinda Mccabe PA-C PROCEDURE/MINOR SURGICAL ORDERABLES Final Result * XR hand 3 views left (01/06/2025 11:09 PM EDT) Anatomical Region Laterality Modality Hand X-Ray 01/08/2025 4:42 PM EDT Impressions 01/08/2025 4:47 PM EDT Soft tissue laceration with no acute bony abnormality. Images reviewed, interpreted, dictated and electronically signed by Srini Ortiz MD Voice shooter helper technology (Power Scribe) is used for the dictation of this note and sound-alike words might be erroneously placed despite reviewing this note for accuracy. Errors in dictation may reflect use of voice recognition software and not all errors in shooter helper may have been detected prior to signing. [...] electronically signed by Srini Ortiz MD Voice shooter helper technology (Power Scribe) is used for the dictation of this note and sound-alike words might be erroneously placed despite reviewing this note for accuracy. Errors in dictation may reflect use of voice recognition software and not all errors in shooter helper may have been detected prior to signing. us Belinda Mccabe PA-C IMG DIAGNOSTIC IMAGING OR DERABLES Final Result from Last 3 Months Insurance BLUE CROSS/BLUE SHIELD Care Teams Assembler Watch Train Relationship Specialty Start Date End Date Fritz Stafford MD [address] [place] [address] PCP - General General Internal Medicine 01/06/25
--- OUTSIDE RECORDS SUMMARY | 2025-02-07 07:14 | XMS_ITS | Data Portability ---
Author Organization [facility] [employer] [place] [facility] Address [address] [place] [address] Assessment No assessment recorded. Plan of Treatment Reminders Order Date Submit Date Provider Last Modified By Organization Details Last Modified Time Details Appointments None recorded. Lab urinalysis , dipstick [address], [address], 4 13:40:30 urinalysis , dipstick [address], [address], 3 16:55:08 Referral None recorded. Procedures None recorded. Surgeries None recorded. Imaging None recorded. Medication Orders None recorded. Patient TargetsNo targets recorded. Patient InstructionsNo instructions recorded. Reason for Referral None Reported. Results Created Date Observation Date Name Description Value Unit Range Abnormal Flag Note LastModifiedBy Organization Detail LastModifiedTime 04/01/2004/01/2023 urina lysis , dipst ick Leukocytes Negati ve Not Available [address], [address], 04/01/2023 16:18:38 04/01/20 23 04/01/2023 urina lysis , dipst ick Nitrite negati ve Not Available [address] [place], [address], 04/01/2023 16:18:38 04/01/20 23 04/01/2023 urina lysis , dipst ick Urobilinogen .2 Not Available [address], [address], 04/01/2023 16:18:38 04/01/20 23 04/01/2023 urina lysis , dipst ick Protein Negati ve Not Available [address], [address], 04/01/2023 16:18:38 04/01/20 23 04/01/2023 urina lysis , dipst ick pH 7.0 Not Available [address], [address], 04/01/2023 16:18:38 04/01/20 23 04/01/2023 urina lysis , dipst ick Blood Negati ve Not Available [address], [address], 04/01/2023 16:18:38 04/01/20 23 04/01/2023 urina lysis , dipst ick Specific Ennis 1.020 Not Available [address], [address], 04/01/2023 16:18:38 04/01/20 23 04/01/2023 urina lysis , dipst ick Ketone Negati ve Not Available [address], [address], 04/01/2023 16:18:38 04/01/20 23 04/01/2023 urina lysis , dipst ick Bilirubin Negati ve Not Available [address], [address], 04/01/2023 16:18:38 04/01/20 23 04/01/2023 urina lysis , dipst ick Glucose Negati ve Not Available [address], [address], 04/01/2023 16:18:38 04/01/20 23 04/01/2023 urina lysis , dipst ick Appearance Clear Not Available [address], [address], 04/01/2023 16:18:38 04/01/20 23 04/01/2023 urina lysis , dipst ick Color Yellow Not Available [address], [address], 04/01/2023 16:18:38 03/14/20 24 03/14/2024 urina lysis , dipst ick Leukocytes Negati ve Not Available [address], [address], 03/14/2024 13:15:42 03/14/20 24 03/14/2024 urina lysis , dipst ick Nitrite negati ve Not Available [address], [address], 03/14/2024 13:15:42 03/14/20 24 03/14/2024 urina lysis , dipst ick Urobilinogen .2 Not Available [address], [address], 03/14/2024 13:15:42 03/14/20 24 03/14/2024 urina lysis , dipst ick Protein Negati ve Not Available [address] [place], [address], 03/14/2024 13:15:42 03/14/20 24 03/14/2024 urina lysis , dipst ick pH 6.0 Not Available [address], [address], 03/14/2024 13:15:42 03/14/20 24 03/14/2024 urina lysis , dipst ick Blood Negati ve Not Available [address], [address], 03/14/2024 13:15:42 03/14/20 24 03/14/2024 urina lysis , dipst ick Specific Ennis 1.030 Not Available [address], [address], 03/14/2024 13:15:42 03/14/20 24 03/14/2024 urina lysis , dipst ick Ketone Negati ve Not Available [address], [address], 03/14/2024 13:15:42 03/14/20 24 03/14/2024 urina lysis , dipst ick Bilirubin Negati ve Not Available [address], [address], 03/14/2024 13:15:42 03/14/20 24 03/14/2024 urina lysis , dipst ick Glucose Negati ve Not Available [address], [address], 03/14/2024 13:15:42 03/14/20 24 03/14/2024 urina lysis , dipst ick Appearance Clear Not Available [address] [place], [address], 03/14/2024 13:15:42 03/14/20 24 03/14/2024 urina lysis , dipst ick Color Dark Yellow Not Available [address], [address], 03/14/2024 13:15:42 Result Notes None recorded. Medical Equipment None Reported. Medications Name Sig Start Date Stop Date Status Note LastModified by Organization Details LastModified Time mucus er 600mg tab TAKE 1 TO 2 TABLETS BY MOUTH TWICE DAILY NEEDED FOR CONGESTIO N active Not Available Not Available No t Available doxycycline hyclate 100 mg capsule 04/01 completed Not Available Not Available Not Available azithromyci n 250 mg tablet TAKE 2 TABLETS BY MOUTH ON DAY 1, AND THEN TAKE 1 TABLET BY MOUTH ONCE A DAY ON DAY 2 THROUGH DAY 5 active Not Available Not Available No t Available ibuprofen 800 mg tablet 04/01 completed Not Available Not Available Not Available propranolol ER 60 mg capsule,24 hr,extended release active Not Available Not Available Not Available acetaminoph en 500 mg tablet active Not Available Not Available Not Available propranolol 10 mg tablet active Not Available Not Available Not Available amlodipine 10 mg tablet once daily active Not Available Not Available No t Available benzonatate 100 mg capsule TAKE 1 CAPSULE BY MOUTH THREE TIMES DAILY NEEDED FOR COUGH active Not Available Not Available No t Available valsartan 320 mg tablet active Not Available Not Available Not Available ibuprofen 600 mg tablet active Not Available Not Available Not Available methylpredn isolone 4 mg tablets in a dose pack TAKE BY MOUTH DIRECTED ON INSIDE OF PACKAGE active Not Available Not Available No t Available ondansetron 4 mg disintegrat ing tablet active Not Available Not Available N ot Available fluticasone propionate 50 mcg/actuati on nasal spray,suspe nsion 04/01 completed Not Available Not Available Not Available Sudogest 60 mg tablet 04/01 completed Not Available Not Available Not Available amoxicillin 875 mg-potfrandyu m clavulanate 125 mg tablet 04/01 completed Not Available Not Available Not Available oxycodone 5 mg tablet active Not Available Not Available No t Available Asprin Ec Low Dose 81 mg tablet,glendy yed release Take 1 tablet every day by oral route. active Not Available Not Available No t Available Repatha Syringe 140 mg/mL subcutaneou s syringe active Not Available Not Available No t Available Repatha SureClick 140 mg/mL subcutaneou s pen injector Inject 1 mL every 2 weeks by subcutane ous route. active Not Available Not Available No t Available Vitals Date Recorded Body height Body mass index (BMI) Body weight Body temperature Heart rate Oxygen saturation Oxygen saturation in Arterial blood by Pulse oximetry Systolic And Diastolic Provider Name and Address Organization Details Last Updated DateTime 4 189.23 cm 28.9 kg/m2 387006. 34 g 98 [degF] 66 /min 94 % 94 % 124/70 mm[Hg] MARV MCNAMARA [employer] 4 13:14:59 Date Recorded Body height Body mass index (BMI) Body weight Body temperature Heart rate Oxygen saturation Oxygen saturation in Arterial blood by Pulse oximetry Systolic And Diastolic Systolic And Diastolic Provider Name and Address Organization Details Last Updated DateTime 3 189.23 cm 28.3 kg/m2 205750. 97 g 97.9 [degF] 70 /min 97 % 97 % 141/73 mm[Hg] 135/81 mm[Hg] Liliane [employer]. 16:23:46 Social History Question Answer Notes LastModified by Organizat ion Details LastModified Time Tobacco Smoking Status Never Smoker Liliane [email or web address]. 04/01/2023 16:13:57 Is Your Home Air Conditioned? Yes Information not available 04/01/2023 Are You Blind Or Do You Have Difficulty Seeing? No Information n ot available 04/01/2023 What Is Your Level Of Caffeine Consumption? Moderate Information not available 04/01/2023 In The 14 Days Before Symptom Onset, Have You Had Close Contact With A Laboratory-confirm ed COVID-19 While That Case Was Ill? No Information n ot available 04/01/2023 In The 14 Days Before Symptom Onset, Have You Had Close Contact With A Person Who Is Under Investigation For COVID-19 While That Person Was Ill? No Information not available 04/01/2023 Have You Been To An Area Known To Be High Risk For COVID-19? No Information not available 04/01/2023 Are You Deaf Or Do You Have Serious Difficulty Hearing? No Information not available 04/01/2023 Which Of Your Hands Is Dominant? Right Information n ot available 04/01/2023 What Was The Date Of Your Most Recent Tobacco Screening? 03/14/2024 [email or web address] Information not available 03/14/2024 Have You Ever Been Counseled For Unhealthy Alcohol Use? No Information not available 04/01/2023 Do You Use Your Seat Belt Or Car Seat Routinely? Yes Information not available 04/01/2023 Do You Have Smoke And Carbon Monoxide Detectors In Your Home? Yes Information not available 04/01/2023 Do You Use Sunscreen Routinely? Yes Information not available 04/01/2023 Has Tobacco Cessation Counseling Been Provided? Yes Information not available 04/01/2023 On What Date Was Tobacco Cessation Counseling Provided? 04/01/2023 Information not available 04/01/2023 Have You Recently Traveled Abroad? No Information not available 04/01/2023 Do You Have Difficulty Walking Or Climbing Stairs? No Information not available 04/01/2023 Sex: Male Functional Status Question Answer Note LastModified by Organizat ion Details LastModified Time Do you use any illicit or recreational drugs? No Information not available 04/01/2023 Do you or have you ever used any other forms of tobacco or nicotine? No Information not available 04/01/2023 What is your level of alcohol consumption? Occasional Information not available 04/01/2023 Are you currently employed? Yes Information not available 04/01/2023 Do you have transportation difficulties? No Information not available 04/01/2023 Are you able to walk? YESWOREST Information not available 04/01/2023 Do you have difficulty doing errands alone? No Information not available 04/01/2023 Are you able to care for yourself? Yes elviaeBeverly Information n ot available 04/01/2023 Do you have difficulty dressing or bathing? No Information not available 04/01/2023 Mental Status Question Answer Note LastModified by Organization D etails LastModified Time Do you have difficulty concentrating, remembering or making decisions? No Information no t available 04/01/2023 Family History Nothing Reported. Medical History No medical history recorded. 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 Please see exam packet for full details of exam. No restrictio ns were given. [id number] Kristin [place] [address] 03/14/2024 12:46:28 03/14/2024 16:33:30 [employer] Sales Representative license medical examination [id number] Z02.4 CDL medical exam approved for 1 year. Please see exam packet for full details of exam. Restricted to wearing corrective lenses. 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 He has stable hypertension and hyperlipidemia. He has no absolute disqualifying conditions or medications. No history of diabetes, seizures or loss of consciousness, or cardiovascular disease. Kristin Fung APRN [address] [place] [address], [address], [email or web address] 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 He has stable hypertension and hyperlipidemia. He has no absolute disqualifying conditions or medications. No history of diabetes, seizures or loss of consciousness, or cardiovascular disease. Kristin Fung APRN [address] [place], [address], [email or web address] 03/14/2024 17:34:13
--- OUTSIDE RECORDS SUMMARY | 2025-02-07 07:14 | XMS_ITS | Clinical Summary ---
Author Organization [facility] Address [address] [facility] [address] [place] [address] Phone Care Team Providers Care Gas Usage Meter Clerk Name Role Phone Status, Fax Unavailable Conditions or Problems Problem Name Problem Code Onset Date Status Entry Date Provider Comment Standard Description Annotate Abnormal Liver Function Tests 994430529 (SNOMED CT) 03/01 Active 03/01 Leonardo Dillon MD Liver function tests outside reference range DIVERTICULITIS OF COLON 955408981 (SNOMED CT) 02/23 Active 02/23 Augustareji Fernández Diverticulitis of colon LAYLA INFECTION B37.89 (ICD-10-CM ) 02/23 Active 02/23 Augusta Fernández Other sites of candidiasis GROUP D STREP ENTEROCOCCUS INFECTION B95.4 (ICD-10-CM ) 02/19 Active 02/19 Augusta Fernández Other streptococcus as the cause of diseases classified elsewhere INTRA-ABDOMINAL ABSCESS K65.1 (ICD-10-CM ) 02/19 Active 02/19 Augusta Fernández Peritoneal abscess ACUTE PERITONITIS 04790767 (SNOMED CT) 02/19 Active 02/19 Augusta Pradeep Acute peritonitis Medications Medication Instructions Start Date Stop Date Generic Name [facility] Provider ASPIRIN LOW DOSE 81 MG ORAL TABLET po qd 9 ASPIRIN 03830970063 Leonardo Dillon MD DILIP ALLERGY 180 MG TABS po qd 9 FEXOFENADINE HCL [id number] Leonardo Dillon MD SIMCOR [id number] Unknown Dose 9 NIACIN-SIMVASTAT IN DU15K-WUT [id number] Leonardo Dillon MD Medications Administered No information available. Allergies, Adverse Reactions, Alerts No information available. Results Date Name Value Unit Range Flag Description Lab Report: CBC w Auto Diff IMM GRANU % 0.0 % 0.0-0.6 N Immature granulocytes/100 leukocytes in Blood BASOPHIL % 0.7 % 0.0-1.0 N Basophils/ 100 leukocytes in Blood by Manual count % EOS AUTO 1.7 % 0.0-3.0 N Eosinophil s/100 leukocytes in Blood by Automated count MONOCYTE BF 9.8 % 0.0-12.0 N monocyte s as percent of body fluid leukocytes LYMPHOCY BF 41.5 % 24.0-44.0 N lymphoc ytes as percent of body fluid leukocytes NEUTROP BF 46.3 % 41.0-71.0 N Neutroph ils/100 leukocytes in Body fluid BASOABSOLMAN 0.04 K/MCL {Cells}/u L 0.00-0.20 N basophils, absolute, manual EOS ABSLT 0.10 10*3/uL 0.10-0.30 N Eosinophi ls [#/volume] in Blood MONOCYTABMAN 0.59 K/MCL {Cells}/u L 0.00-1.00 N monocytes, absolute, manual LYMPHSABSMAN 2.49 K/MCL {Cells}/u L 0.60-4.80 N lymphocytes, absolute, manual ABS NEUTROPH 2.78 10*3/uL 1.50-8.30 N Neutro phils [#/volume] in Blood PLATELETS 850 10*3/mm3 150-450 H Platelets [#/volume] in Blood by Automated count RDW_ 13.4 11.3-14.5 N RDW, no uni ts MCHC 32.2 G/DL 32.0-36.0 N MCHC [Mass/ volume] by Automated count MCH 25.8 pg 27.0-31.0 L MCH [Entiti c mass] by Automated count MCV 79.9 fL 80.0-99.0 L MCV [Entiti c volume] by Automated count HCT 36.6 % 38.9-50.9 L Hematocrit [Volume Fraction] of Blood by Automated count HGB 11.8 g/dL 13.1-17.5 L Hemoglobin [Mass/volume] in Blood RBC 4.58 M/MCL 10*6/mm3 4.20-5.76 N Erythro cytes [#/volume] in Blood by Automated count WBC 6.00 10*3/mm3 3.50-10.8 0 N Leukocytes [#/volume] in Blood by Automated count Office Visit: Rm10 MEDS REVIEW Done Documenta tion of current medications (procedure) ORALTOBACUSE yes Tobacco smoking status SMOK STATUS Never smoker Tobacco smoking status Lab Report: Comprehensive Wy tabolic Panel ANIONGAP 11 mmol/L 3-11 N anion gap, s michael GFRC 102 mL/min/1. 73m2 Glomerular Filtration Rate Calculation ALBUMIN 4.1 g/dL 3.2-4.8 N Albumin [Mass/volume] in Serum or Plasma PROTEIN, TOT 7.5 g/dL 5.7-8.2 N Protein [Mass/volume] in Serum or Plasma BILI TOTAL 0.3 mg/dL 0.3-1.2 N Bilirubin. total [Mass/volume] in Serum or Plasma SGPT (ALT) 46 U/L 7-40 H Alanine aminotransferase [Enzymatic activity/volume] in Serum or Plasma SGOT (AST) 29 U/L 0-33 N Aspartate aminotransferase [Enzymatic activity/volume] in Serum or Plasma ALK PHOS 85 U/L 25-100 N Alkaline abrahan sphatase [Enzymatic activity/volume] in Blood CALCIUM 9.3 mg/dL 8.7-10.4 N Calcium [Moles/volume] in Serum or Plasma CO2 33 mmol/L 20-31 H Carbon dioxid e, total [Moles/volume] in Venous blood CHLORIDE 99 mmol/L 99-109 N Chloride [Moles/volume] in Serum or Plasma POTASSIUM 4.5 mmol/L 3.5-5.5 N Potassium [Moles/volume] in Serum or Plasma SODIUM 143 mmol/L 132-146 N Sodium [Moles/volume] in Serum or Plasma CREATININE 0.9 mg/dL 0.6-1.3 N Creatinine [Mass/volume] in Serum or Plasma BUN 9 mg/dL 9-23 N Urea nitrogen [Mass/volume] in Serum or Plasma GLUCOSE SER 78 mg/dL 70-100 N Glucose [Mass/volume] in Serum or Plasma Plan of Care Type Date Detail Pending order CMP Pending order CMP Pending order CBC with Differe ntial Procedures Code Procedure Name Date Entry Date CPT-48732 [facility] CPT-85095 [facility] [id number] CBC with Differential 2014 Vital Signs Date Name Value Unit Description BMI (Body Mass Index) 26.03 kg/m2 Bod y Mass Index (Ratio) Body Temperature 98 [degF] temperat ure E&M BP Diastolic 78 mm[Hg] blood pressu re, diastolic BP Systolic 122 mm[Hg] blood pressur e, systolic Heart Rate 84 /min pulse rate Height 74 [in_us] height E&M Respiratory Rate 20 /min respirat ory rate E&M Weight Measured 202 [lb_av] weight E& M Weight Measured 202 [lb_av] weight E& M Immunizations No information available. Advance Directives No information available.
--- OUTSIDE RECORDS SUMMARY | 2025-02-07 07:14 | XMS_ITS | Encounter Summary ---
Author Organization Healthcare Address [address] [place] [address] Care Team Providers Care Sales Enablement Specialist Name Role Phone Edmundo Craen MD Primary Care Provider [phone] Encounter Details Date Type Department Care Team (Late st Contact Info) Description 12/16/2024 Results Follow-Up [facility] [address] [place] [address] Debbie Pardo, REBA [address] [place] [address] Social History Tobacco Use Types [...] encounter Miscellaneous Notes * Telephone Encounter - Oexmann, Debbie Elena, SUPERVISOR PUBLIC MESSAGE SERVICE - 01/10/2025 11:09 AM EDT Called the patient to review results, no answer, left VM. Will attempt to reach the patient again at a later time. * Telephone Encounter - Debbie Pardo APRN - 12/16/2024 8:16 AM EDT Called patient to discuss results. Patient was given 20,000U of vitamin d to take take daily per Cardiology. Patient has been taking this dose for 2 years. As vitamin D is very elevated, will have patient stop taking vitamin D and will have patient recheck levels in 2 months. Additionally, will addiron on to see if there is any added benefit to fatigue and optimize levels. Medication education provided. The patient agreeable to the aforementioned plan, and all pertinent questions were answered. documented in this encounter Plan of Treatment Upcoming Encounters Date Type Department Care Team (Late st Contact Info) Description 03/21/2025 3:30 PM EDT Appointment Cardiac Imaging [address] [place] [address] 04/13/2025 9:00 AM EDT Office Visit [facility] [address] [place] [address] Reji Kaur MD [address] [place] [address] 10/12/2025 9:00 AM EDT Office Visit [facility] [place] [address] [facility], [address] [place] [address] Teodora Saez APRN [address] [place] [address] Scheduled Orders Name Type Priority Associated Diagnoses Orde r Schedule Vitamin D 25 Hydroxy Lab Routine High serum vitamin D Expected: 02/15/2025 (Approximate), Expires: 06/18/2026 Iron, Plasma Lab Routine Other fatigue Iron deficiency Expected: 02/15/2025 (Approximate), Expires: 06/18/2026 documented as of this encounter Visit Diagnoses Diagnosis Other fatigue- Primary High serum vitamin D Iron deficiency Disorders of iron metabolism documented in this encounter Additional Health Concerns Assessment Noted Time PHQ-9 Depression Total Score: 1 10/15/19 25 8:16 AM EDT A fall risk assessment has been complete d for the patient 11/21/2024 3:42 PM EDT A Body Mass Index follow-up plan has been documented for the patient 12/16/2024 1:07 AM EDT documented as of this encounter Care Teams Sales Enablement Specialist Relationship Specialty Start Date End Date Edmundo Crane MD [address] [phone] PCP - General 12/07/20 documented as of this encounter
--- OUTSIDE RECORDS SUMMARY | 2025-02-07 07:14 | XMS_ITS | Encounter Summary ---
Author Organization [facility] Address [address] [place] [address] Care Team Providers Care Database Technician Name Role Phone Edmundo Crane MD Primary Care Provider [phone] Encounter Details Date Type Department Care Team (Latest Contact Info) Description 01/14/2025 Travel Social History Tobacco Use Types Packs/Day [...] EDT Appointment Cardiac Imaging [address] [place] [address] 04/13/2025 9:00 AM EDT Office Visit [facility] [address] [place] [address] Reji Kaur MD [address] [place] [address] 10/12/2025 9:00 AM EDT Office Visit [facility] [place] [place]bank [address] [facility], [address] [place] [address] Teodora Saez, CENTRIFUGAL SCREEN TENDER [address] [place] [address] documented as of this encounter [...] documented as of this encounter Care Teams Database Technician Relationship Specialty Start Date End Date Edmundo Crane MD [address] [place] [address] PCP - General 12/07/20 documented as of this encounter
--- OUTSIDE RECORDS SUMMARY | 2025-02-07 07:14 | XMS_ITS | Encounter Summary ---
Author Organization [facility] Address [address] [place] [address] Care Team Providers Care Formula Mixer Name Role Phone Edmundo Crane MD Primary Care Provider [phone] Encounter Details Date Type Department Care Team (Late Contact Info) Description 01/15/2025 Results Follow-Up [facility] [address] [place] [address] Krista Rudd, INFO SPECIALIST [address] [facility] [address] [place] [address] Social History Tobacco Use Types Packs/Day Years [...] EDT Appointment Cardiac Imaging [address] [place] [address] 04/13/2025 9:00 AM EDT Office Visit [facility] [address] [place] [address] Reji Kaur MD [address] [place] [address] 10/12/2025 9:00 AM EDT Office Visit [facility] [place] [address] [facility], [address] [place] [address] Teodora Saez, INFO SPECIALIST [address] [place] [address] documented as of this encounter [...] documented as of this encounter Care Teams Formula Mixer Relationship Specialty Start Date End Date Edmundo Crane MD [address] [place] [address] PCP - General 12/07/20 documented as of this encounter
--- OUTSIDE RECORDS SUMMARY | 2025-02-07 07:14 | XMS_ITS | Clinical Summary ---
Author Organization [facility] Address [address] [place] [address] Care Team Providers Care Mannequin Mold Maker Name Role Phone Edmundo Crane MD Primary Care Provider [phone] Allergies Active Allergy Reactions Criticality Noted Date Comments Iodinated Contrast Media Other - please document in the comment field Low 08/09/2024 Medications aspirin 81 MG EC tablet TAKE 1 TABLET BY MOUTH DAILY 021 Active psyllium (Metamucil Smooth Texture) 58.6 % powder 1 (one) time each day at the same time. Active Vitamin E 180 MG (400 UNIT) capsule 1 (one) time each day at the same time. Active multivitamin with minerals (Centrum) 9-200 mg-mcg tablet split tablet 1 (one) time each day at the same time. Active cholecalciferol (Vitamin D-3) 250 MCG (75727 UT) capsule Take 1 capsule (10,000 Units) by mouth daily. Takes 92154 daily Active Multiple Vitamin (multivitamin) tablet Take 1 tablet by mouth daily. One a day Active fexofenadine (Shanti) 180 MG tablet Take 1 tablet (180 mg) by mouth daily. Active propranolol (Inderal) 10 MG tablet Take 1 tablet (10 mg) by mouth 3 (three) times a day. 90 tablet 11 024 Active Additional Information Patient not taking.Reported on 01/14/2025 tadalafil (Cialis) 10 MG tablet as needed for erectile dysfunction. 025 Active testosterone cypionate (Depo-Testosteron e) 200 MG/ML injection every 14 (fourteen) days. Active tamsulosin (Flomax) 0.4 MG 24 hr capsule Take 1 capsule (0.4 mg) by mouth daily. Active amLODIPine (Norvasc) 10 MG tabletIndications :Primary hypertension Take 1 tablet (10 mg) by mouth daily. 90 tablet 3 025 2025 Active Additional Information Patient taking differently: 5 mgOral Daily, Reported on 01/14/2025 propranolol LA (Inderal LA) 60 MG 24 hr capsuleIndication s:Primary hypertension Take 1 capsule (60 mg) by mouth daily. Do not crush, chew, or split. 90 capsule 3 025 2025 Active Additional Information Patient not taking.Reported on 01/14/2025 valsartan (Diovan) 320 MG tabletIndications :Primary hypertension Take 1 tablet (320 mg) by mouth daily. 90 tablet 3 025 2025 Active sildenafil (Viagra) 100 MG tabletIndications :Drug-induced erectile dysfunction Take 1 tablet (100 mg) by mouth daily as needed for erectile dysfunction. 10 tablet 3 Active Evolocumab (Repatha SureClick) 140 MG/ML solution auto-injector Inject 1 mL (140 mg) under the skin every 14 (fourteen) days. 6 mL 1 Active ferrous gluconate (Fergon) 324 (38 Fe) MG tabletIndications :Other fatigue,Iron deficiency Take 1 tablet by mouth daily with breakfast. 90 tablet Active ascorbic acid (vitamin C) 100 MG tabletIndications :Iron deficiency Take 1 tablet by mouth daily. Please take with Iron supplement. 90 tablet 025 Active ondansetron ODT (Zofran-ODT) 4 MG disintegrating tabletIndications :Nausea Dissolve 1 tablet on the tongue every 8 hours as needed for nausea or vomiting. 20 tablet Active cephalexin (Keflex) 500 MG capsule Take 1 capsule by mouth 3 times a day. 025 2024 Discontinued predniSONE (Deltasone) 20 MG tabletIndications :Nausea Take 1 tablet by mouth daily for 5 days. 5 tablet 025 2024 amoxicillin-clavu lanate (Augmentin) 875-125 MG tabletIndications :Chills Take 1 tablet by mouth 2 times a day for 10 days. 20 tablet 025 2024 Active Problems Problem Noted Date Diagnosed Date Traumatic complete tear of right rotator cuff Acute recurrent sinusitis 05/07/2022 Neuropathy 06/11/2021 Assessment & Plan (06/11/2021 3:37 PM EST): -stable. Symptoms of bilateral hand and foot numbness/tingling. A1c earlier this year within normal limits. Symptoms are equal bilaterally with no unilateral predominance. Low suspicion for impingement or structural cause. As patient is not currently interested in pursuing any medical therapy and symptoms do not interfere with his daily life, will monitor for now. Drug-induced erectile dysfunction 04/05/2021 Hypertension 09/07/2020 Assessment & Plan (06/11/2021 3:40 PM EST): -BP at goal. Compliant with ARB/HCTZ combo. No adverse effects. Will continue this med. -patient will continue home BP log. 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 No shortness of breath or evidence of airway compromise. -may be a side effect of Viagra versus just a stress response due to increased work stress. -have counseled patient to record symptoms in a journal/log and bring those notes to the next appointment. He is agreeable with this plan. Encounters Date Type Department Care Team Description 01/15/2025 3:00 PM EDT Clinical Support [facility] [address] [place] [phone] Krista Rudd APRN Body aches (Primary Dx) 01/15/2025 2:15 PM EDT - 01/15/2025 11:59 PM EDT Hospital Encounter [facility] X-Ray [address], [address] [place] [address] Chills Discharge Disposition: Home or Self Care 01/15/2025 Results Follow-Up [facility] [address] [place] [phone] Krista Rudd APRN 01/15/2025 Travel 01/15/2025 Orders Only [facility] [address] [place] [phone] Krista Rudd APRN Chills (Primary Dx) 01/15/2025 Results Follow-Up [facility] [address] [place] [phone] Krista Rudd APRN Results (Spoke to patient regarding results and next steps for him per providers requests. Patient understood. ) 01/14/2025 6:40 PM EDT Office Visit [facility] [address] [place] [address] Krista Rudd APRN Body aches (Primary Dx); Chronic fatigue; Nausea 01/14/2025 Travel 01/11/2025 9:00 AM EDT Office Visit [facility] [address] [place] [phone] Debbie Pardo APRN HUNG (obstructive sleep apnea) (Primary Dx); Leg swelling 01/11/2025 Travel 12/28/2024 8:00 PM EDT Clinical Support [facility] [place] [address] [place] [address] Karely Gorman Snoring (Primary Dx); HUNG (obstructive sleep apnea) 12/28/2024 Outside Procedure [facility] [place] [address] [place] [address] Reji Kaur MD HUNG (obstructive sleep apnea) (Primary Dx) 12/28/2024 Travel 12/16/2024 Telephone [facility] [place] [address] [place] [phone] Debbie Pardo APRN 12/16/2024 Results Follow-Up [facility] [place] [address] [place] [phone] Debbie Pardo, REBA 11/29/2024 8:40 AM EDT Clinical Support [facility] [address], [address] [place] [address] Other fatigue 11/29/2024 Travel 11/21/2024 4:00 PM EDT Office Visit [facility] [place] [address] [place] [phone] Debbie Pardo, REBA Other fatigue (Primary Dx); HUNG (obstructive sleep apnea) 11/21/2024 Travel from Last 3 Months Immunizations Immunization Administration Dates Next Due Hep A, Adult 09/17/2019,01/07/2019 Influenza, injectable, quadrivalent 06/16/2018,1 08/02/2016 Influenza, injectable, quadr ivalent, preservative free 05/07/2023,06/11/2021,05/31/2019 Influenza, recombinant, quad rivalent, injectable, preservative free 05/24/2020 Influenza, seasonal, injectable 06/26/2020,06/26 Influenza, seasonal, injecta ble, preservative free 06/16/2024 Moderna COVID-19 Vaccine (Re d Cap) 12+ years 10/25/2021 Pfizer-BioNTAzureBooker COVID-19 Vac cine (Purple Cap) 12+ 04/26/2021,04/26/2021,08/31/2020,2020,08/09/2020,08/09/2020 Pneumococcal Conjugate PCV 13 12/07/2020, 021 Tdap 01/07/2019 Zoster, Recombinant 06/11/2021,12/07/2020,2020 Family History Medical History Relation Name Comments Coronary artery disease Father Cancer Maternal Grandfather NELSON Santoyo Colon cancer Maternal Grandfather NELSON Santoyo Pulmonary embolism Mother Heart failure Other 1 Coronary artery disease Other 2 Conversions - Other Paternal Grandfather History of nephrectomy Anesthesia problems Neg Hx Malig Hyperthermia Neg Hx Relation Name Status Comments Father Maternal Grandfather NELSON Santoyo Mother Other 1 Other 2 Paternal Grandfather Social History Tobacco Use Types Packs/Day Years [...] Orientation Straight 12/20/2021 8: 47 AM EDT Last Filed Vital Signs Vital Sign Reading [...] Mass Index 31.45 01/14/2025 6:37 PM EDT Plan of Treatment Upcoming Encounters Date Type Department Care Team (Late st Contact Info) Description 03/21/2025 3:30 PM EDT Appointment Cardiac Imaging [address] [place] [address] 04/13/2025 9:00 AM EDT Office Visit [facility] [address] [place] [address] Reji Kaur MD [address] [place] [address] 10/12/2025 9:00 AM EDT Office Visit [facility] [address], [address] [place] [address] Teodora Saez, JEWEL LATHE OPERATOR [address] [place] [address] Health Maintenance Due Date Last Done Comments [facility]-HIV Screening 1965 [facility]-Hepatitis C Screening 1965 [facility]-Infant/Child/Adol SDOH Screenings 1965 [facility]- SDOH Screenings 10/16/1981 [facility]-Adult SDOH Screenings 10/16/1981 CT Colonography 10/16/2008 Colonoscopy 10/16/2008 FIT-DNA 10/16/2008 FIT 10/16/2008 FOBT 10/16/2008 Sigmoidoscopy 10/16/2008 [facility]-Colorectal Cancer Screening 10/16/2008 [facility]-Pneumococcal Vaccine: 50+ Years (2 of 2 - PPSV23) 12/07/2021 12/07/2020, 12/07/2020 [facility]-RSV Vaccine: 60+ Years or (1 - Risk 60-74 years 1-dose series) 2023 [id number]-85 Vaccine ( season) 2024 05/07/2023, 10/25/2021, 04/26/2021, Additional history exists [facility]-Influenza Vaccine (#1) 03/27/202506/16, 05/07/2023, 06/11/2021, Additional history exists [facility]-Depression Screening 10/14/2025 10/14/2024, 09/25 [facility]-DTaP,Tdap,and Td Vaccines (3 - Td or Tdap) 01/06/2035 01/06/2025, 01/07/2019 [facility]-Hepatitis A Vaccines Aged Out 09/17/2019, 12/25 No longer eligible based on patient's age to complete this topic [facility]-Zoster Vaccines Completed 06/11/2021, 12/07/2020, 12/07/2020 [facility]-Diabetes: Hemoglobin A1C Discontinued 09/08/2022, 01/31/2022, 12/06/2020 [facility]-Obesity Intervention Completed 025, 01/14/2025, 01/11/2025, Additional history exists Dental Oral Exam Discontinued Dental Prophylaxis Discontinued Dental X-Ray: Bitewings Discontinued Dental X-Ray: Full Mouth Discontinued HPV Vaccines Aged Out No longer eligi ble based on patient's age to complete this topic [facility]-HIB Vaccines Aged Out No longer e ligible based on patient's age to complete this topic [facility]-IPV Vaccines Aged Out No longer e ligible based on patient's age to complete this topic [facility]-Rotavirus Vaccines Aged Out No lo nger eligible based on patient's age to complete this topic Medical Devices Implanted Type Area Brake Repairer Bus Device Identifier Shelf Expiration Date Model / Serial / Lot [place] All Suture Qfix 1.8mm - [id number] - [id number] Implanted:Qty : 1 on 04/03/2023 by Ryan Garza MD at [facility] [place] Right: Shoulder [employer] (Acufex)-[id number] 02/06/2026 / 1800 / [id number] [place] Ultra Twinfix 5.5 - [id number] - [id number] Implanted:Qty : 1 on 04/03/2023 by Ryan Garza MD at [facility] [place] Right: Shoulder [employer] ([employer])-[id number] 11/30/2027 [id number] / [id number] / [id number] Procedures Procedure Name Priority Date/Time Associated Diagnosis Comments POCT URINALYSIS DIPSTICK Routine 01/15/2025 3:07 PM EDT Body aches XR CHEST 2 VIEWS STAT 01/15/2025 2:18 PM EDT Chills ANTINUCLEAR ANTIBODY (ORESTES) WITH HEP-2 SUBSTRATE, IGG BY IFA (SO) Routine 01/14/2025 7:40 PM EDT Chronic fatigue FOLATE, SERUM Routine 01/14/2025 7:40 PM EDT Chronic fatigue C-REACTIVE PROTEIN, PLASMA Routine 01/14/2025 7:40 PM EDT Chronic fatigue SEDIMENTATION RATE, AUTOMATED Routine 01/14/2025 7:40 PM EDT Chronic fatigue VITAMIN B12, SERUM Routine 01/14/2025 7: 40 PM EDT Chronic fatigue CREATINE KINASE, TOTAL, PLASMA Routine 01/14/2025 7:40 PM EDT Chronic fatigue COMPREHENSIVE METABOLIC PANEL, PLASMA Routine 01/14/2025 7:40 PM EDT Chronic fatigue CBC WITH AUTO DIFFERENTIAL Routine 01/14/2025 7:40 PM EDT Chronic fatigue POCT SARS COV2 COVID 19/INFLUENZA A,B Routine 01/14/2025 7:09 PM EDT Body aches ADULT SLEEP STUDY OVERNIGHT POLYSOMNOGRAPHY WITH CPAP TITRATION Routine 12/28/2024 8:17 PM EDT HUNG (obstructive sleep apnea) VITAMIN D 25 HYDROXY Routine 11/29/2024 8:43 AM EDT Other fatigue VITAMIN B12, SERUM Routine 11/29/2024 8: 43 AM EDT Other fatigue FERRITIN, SERUM Routine 11/29/2024 8:43 AM EDT Other fatigue TSH Routine 11/29/2024 8:43 AM EDT Other fatigue IRON, PLASMA Routine 11/29/2024 8:43 AM EDT Other fatigue POCT GLYCOSYLATED HEMOGLOBIN (HGB A1C) Routine 09/08/2022 5:11 PM EST Annual physical exam from Last 3 Months or Most Recently Relevant to Health Maintenance Results * (ABNORMAL) POCT Urinalysis dipstick (01/15/2025 3:07 PM EDT) POCT Urine Color Other POCT Urine Clarity Clear POCT Glucose Urine Negative Negative mg/dL POCT Bilirubin, Urine Negative Negative POCT Ketones, Urine Negative Negative mg/dL POCT Specific Force, Urine 1.025 POCT Blood, Urine Negative Negative POCT pH, Urine 6.0 5.0 to 8.0 POCT Protein, Urine 30(A) Negative mg/dL POCT Urobilinogen, Urine 0.2 0.2, 1 E.U./dL POCT Nitrite, Urine Negative Negative POCT Leukocyte Esterase, Urine Negative Negative Test Strip Lot Number [id number] Test Strip Lot Expiration 10/24/2025 Urine Urine specimen obtained by clean catch procedure / Unknown 01/15/2025 3:07 PM EDT Krista Rudd JEWEL LATHE OPERATOR POINT OF CARE TEST ENTER/ EDIT ORDERABLES Final Result * XR Chest 2 Views (01/15/2025 2:18 [...] on 01/15/2025 2:48 PM us Krista Rudd APRN IMG XR PROCEDURES Final R esult * Creatine Kinase (CK), Total (01/14/2025 7:40 PM EDT) Creatine Kinase, Plasma 169 49 - 320 U/L 01/14/2025 9:37 PM EDT [facility] Blood Venous blood specimen / Unknown Venipuncture / Unknown 01/14/2025 7:40 PM EDT 01/14/2025 9:18 PM EDT us Krista Rudd APRN LAB BLOOD ORDERABLES Denae l Result [facility] [address] [place] [address] * (ABNORMAL) Sedimentation rate, automated (01/14/2025 7:40 PM EDT) Sedimentation Rate 20(H) <20 mm/hr 2024 9:38 PM EDT [facility] Blood Venous blood specimen / Unknown Venipuncture / Unknown 01/14/2025 7:40 PM EDT 01/14/2025 9:18 PM EDT us Krista S Tobin BRITTON LAB BLOOD ORDERABLES Denae ghada Result [facility] [address] [place] [address] * (ABNORMAL) CBC and differential (01/14/2025 7:40 PM EDT) WBC Count 14.19(H) 3.70 - 10.30 10*3/uL LAB HEMATOLOGY METHOD 01/14/2025 9:27 PM EDT [facility] RBC Count 6.26(H) 4.60 - 6.10 10*6/uL LAB HEMATOLOGY METHOD 01/14/2025 9:27 PM EDT [facility] HGB 15.9 13.7 - 17.5 g/dL LAB HEMATOLOGY METHOD 01/14/2025 9:27 PM EDT [facility] HCT 50.1 40.0 - 51.0 % LAB HEMATOLOGY METHOD 01/14/2025 9:27 PM EDT [facility] Platelet Count 289 155 - 369 10*3/uL LAB HEMATOLOGY METHOD 01/14/2025 9:27 PM EDT [facility] MCV 80 79 - 98 fL LAB HEMATOLOGY METHOD 01/14/2025 9:27 PM EDT [facility] MCH 25.4(L) 26.0 - 32.0 pg LAB HEMATOLOGY METHOD 01/14/2025 9:27 PM EDT [facility] MCHC 31.7 30.7 - 35.5 g/dL LAB HEMATOLOGY METHOD 01/14/2025 9:27 PM EDT [facility] RDW 15.7(H) 11.5 - 14.5 % LAB HEMATOLOGY METHOD 01/14/2025 9:27 PM EDT [facility] MPV 9.3 8.8 - 12.5 fL LAB HEMATOLOGY METHOD 01/14/2025 9:27 PM EDT [facility] nRBC 0.0 <=0.0 per 100 WBCs LAB HEMATOLOGY METHOD 01/14/2025 9:27 PM EDT [facility] Differential Type Automated LAB HEMATOLOGY METHOD 01/14/2025 9:27 PM EDT [facility] Neutrophils % 85 % LAB HEMATOLOGY METHOD 01/14/2025 9:27 PM EDT [facility] Lymphocytes % 9 % LAB HEMATOLOGY METHOD 01/14/2025 9:27 PM EDT [facility] Monocytes % 5 % LAB HEMATOLOGY METHOD 01/14/2025 9:27 PM EDT [facility] Eosinophils % 0 % LAB HEMATOLOGY METHOD 01/14/2025 9:27 PM EDT [facility] Basophils % 1 % LAB HEMATOLOGY METHOD 01/14/2025 9:27 PM EDT [facility] Immature Granulocytes % 0 % LAB HEMATOLOGY METHOD 01/14/2025 9:27 PM EDT [facility] Neutrophils Absolute 12.14(H) 1.60 - 6.10 10*3/uL LAB HEMATOLOGY METHOD 01/14/2025 9:27 PM EDT [facility] Lymphocytes Absolute 1.25 1.20 - 3.90 10*3/uL LAB HEMATOLOGY METHOD 01/14/2025 9:27 PM EDT [facility] Monocytes Absolute 0.64 0.30 - 0.90 10*3/uL LAB HEMATOLOGY METHOD 01/14/2025 9:27 PM EDT [facility] Eosinophils Absolute 0.03 0.00 - 0.50 10*3/uL LAB HEMATOLOGY METHOD 01/14/2025 9:27 PM EDT [facility] Basophils Absolute 0.07 0.00 - 0.10 10*3/uL LAB HEMATOLOGY METHOD 01/14/2025 9:27 PM EDT [facility] Immature Granulocytes Absolute 0.06 0.00 - 0.06 10*3/uL LAB HEMATOLOGY METHOD 01/14/2025 9:27 PM EDT [facility] Blood Venous blood specimen / Unknown Venipuncture / Unknown 01/14/2025 7:40 PM EDT 01/14/2025 9:18 PM EDT Narrative [facility] - 01/14/2025 9:27 PM EDT Therapeutic decision making should be based on absolute values, rather than percentages. us Krista Rudd APRN LAB BLOOD ORDERABLES Denae l Result [facility] [address] [place] [address] * (ABNORMAL) C-reactive protein (01/14/2025 7:40 PM EDT) Pathologist [facility] CRP, Plasma 25.7(H) <=8.0 mg/L 01/14/2025 9:37 PM EDT [facility] Blood Venous blood specimen / Unknown Venipuncture / Unknown 01/14/2025 7:40 PM EDT 01/14/2025 9:18 PM EDT Narrative [facility] - 01/14/2025 9:37 PM EDT This CRP test is appropriate for assessment of infection, systemic inflammation and/or tissue injury. To assess cardiovascular disease risk order high sensitivity CRP (CRPH). Krista Rudd APRN LAB BLOOD ORDERABLES Denae urrutia Result [facility] [address] [place] [address] * ANTI NUCLEAR AB (01/14/2025 7:40 PM EDT) Pathologist [facility] ORESTES INTERPRETIVE COMMENT See Note 01/18/2025 6:50 PM EDT [facility] (Exec) Anti Nuc Ab Screen <1:80 <1:80 01/18/2025 6:50 PM EDT [facility] (Exec) Blood Venous blood specimen / Unknown Venipuncture / Unknown 01/14/2025 7:40 PM EDT 01/14/2025 9:18 PM EDT [facility] ([facility]) - 01/18/2025 6:50 PM EDT Antinuclear antibodies [...] not necessarily rule out SARD. Performed By: [facility] [address] [place] [id number] Material Clerk: Henri Prince MD, PhD CLIA Number: [id number] Krista Rudd JEWEL LATHE OPERATOR LAB BLOOD ORDERABLES Denae l Result [facility] ([facility]) [address] [place] [address] * Folate (01/14/2025 7:40 PM EDT) Pathologist [facility] Folate, Serum >20.0 >4.6 ng/mL 01/14/2025 11:10 PM EDT [facility] Blood Venous blood specimen / Unknown Venipuncture / Unknown 01/14/2025 7:40 PM EDT 01/14/2025 9:18 PM EDT Krista Rudd APRN LAB BLOOD ORDERABLES Denae l Result [facility] [address] [place] [address] * Vitamin B12 (01/14/2025 7:40 PM EDT) Only the most recent of2 resultswithin the time period is included. Vitamin B12, Serum 561 210 - 1,033 pg/mL 01/14/2025 11:10 PM EDT [facility] Blood Venous blood specimen / Unknown Venipuncture / Unknown 01/14/2025 7:40 PM EDT 01/14/2025 9:18 PM EDT us Krista Rudd JEWEL LATHE OPERATOR LAB BLOOD ORDERABLES Denae urrutia Result [facility] [address] [place] [address] * (ABNORMAL) Comprehensive metabolic panel (01/14/2025 7:40 PM EDT) Glucose, Plasma 104(H) 74 - 99 mg/dL 01/14/2025 9:37 PM EDT [facility] BUN, Plasma 12 8 - 23 mg/dL 01/14/2025 9:37 PM EDT [facility] Creatinine, Plasma 1.10 0.70 - 1.20 mg/dL 01/14/2025 9:37 PM EDT [facility] BUN/Creatinine Ratio 11 01/14/2025 9:37 PM EDT [facility] Sodium, Plasma 139 136 - 145 mmol/L 01/14/2025 9:37 PM EDT [facility] Potassium, Plasma 4.3 3.6 - 4.9 mmol/L 01/14/2025 9:37 PM EDT [facility] Chloride, Plasma 102 97 - 107 mmol/L 01/14/2025 9:37 PM EDT [facility] CO2, Plasma 23 22 - 29 mmol/L 01/14/2025 9:37 PM EDT [facility] Anion Gap 14 6 - 16 mmol/L 01/14/2025 9:37 PM EDT [facility] Total Calcium, Plasma 9.1 8.9 - 10.2 mg/dL 01/14/2025 9:37 PM EDT [facility] Total Protein 7.9 6.3 - 7.9 g/dL 01/14/2025 9:37 PM EDT [facility] Albumin, Plasma 4.2 3.5 - 5.2 g/dL 01/14/2025 9:37 PM EDT [facility] AST, Plasma 27 10 - 50 U/L 01/14/2025 9:37 PM EDT [facility] ALT, Plasma 36 10 - 50 U/L 01/14/2025 9:37 PM EDT [facility] Alkaline Phosphatase, Plasma 77 40 - 115 U/L 01/14/2025 9:37 PM EDT [facility] Total Bilirubin, Plasma 0.6 0.2 - 1.1 mg/dL 01/14/2025 9:37 PM EDT [facility] eGFRcr 76.4 mL/min/1.7 3m*2 01/14/2025 9:37 PM EDT [facility] Comment:Reported eGFRcr in m L/min/1.73m2 is based the CKD-EPI 2020 equation that does not use a race coefficient. Blood Venous blood specimen / Unknown Venipuncture / Unknown 01/14/2025 7:40 PM EDT 01/14/2025 9:18 PM EDT Krista Rudd APRN LAB BLOOD ORDERABLES Denae l Result [facility] [address] [place] [address] * POCT SARS-CoV-2 COVID-19 Influenza A,B (01/14/2025 7:09 PM EDT) Pathologist [facility] POCT Influenza A PCR Not Detected Not Detected POCT Influenza B PCR Not Detected Not Detected POCT COVID 19 PCR Not Detected Not Detected POCT COVID/Flu A,B Kit Lot [id number] POCT COVID/FLU A,B Kit Expiration 123,126 Nasopharyngeal Swab Nasopharyngeal structure / Unknown 01/14/2025 7:09 PM EDT Krista Rudd APRN POINT OF CARE TEST ENTER/ EDIT ORDERABLES Final Result * Adult Sleep Study Overnight Polysomnography With CPAP Titration (12/28/2024 8:17 PM EDT) 12/28/2024 8:17 PM EDT Narrative [facility] - 01/08/2025 12:51 AM EDT General Information:See Media Viewer for report. This statement produced by Interface. Debbie Pardo APRN SLEEP CENTER ORDERABLES Final Result [facility] * (ABNORMAL) Vitamin D 25 Hydroxy (11/29/2024 8:43 AM EDT) Vitamin D 25 Hydroxy >155.9(H) 20.0 - 80.0 ng/mL 11/29/2024 2:55 PM EDT [facility] Blood Venous blood specimen / Unknown Venipuncture / Unknown 11/29/2024 8:43 AM EDT 11/29/2024 8:43 AM EDT Narrative [facility] - 11/29/2024 2:55 PM EDT Testing performed on [employer] Waiter, standardized against NIST SRM 2972. When testing samples from patients whose predominant form of vitamin D is vitamin D2, such as patients receiving vitamin D2 supplementation, results that are subtherapeutic should be confirmed with another method, such as LC-MS/MS, before being used for patient management. Vitamin D, 25-Hydroxy reference range, age 18 years and up: Deficiency: <12 ng/mL Insufficiency: 12 to 19 ng/mL Sufficiency: 20 to 80 ng/mL Possible toxicity: >100 ng/mL Debbie Pardo APRN LAB BLOOD ORDERABLES Fi nal Result Performing Organization Address [facility] [[email or web address]] Co de Phone Number [facility] [address] [place] [address] * Thyroid Stimulating Hormone, Plasma (11/29/2024 8:43 AM EDT) Thyroid Stimulating Hormone, Plasma 1.83 0.40 - 4.20 uIU/mL 11/29/2024 10:53 AM EDT [facility] Blood Venous blood specimen / Unknown Venipuncture / Unknown 11/29/2024 8:43 AM EDT 11/29/2024 8:43 AM EDT Debbie Pardo JEWEL LATHE OPERATOR LAB BLOOD ORDERABLES Fi nal Result Performing Organization Address City/[facility]/ZIP Co de Phone Number [facility] [address] [place] [address] * Iron, Plasma (11/29/2024 8:43 AM EDT) Pathologist [facility] Iron, Plasma 71 50 - 170 ug/dL 11/29/2024 10:53 AM EDT [facility] Blood Venous blood specimen / Unknown Venipuncture / Unknown 11/29/2024 8:43 AM EDT 11/29/2024 8:43 AM EDT Debbie Spnanfranklyn JEWEL LATHE OPERATOR LAB BLOOD ORDERABLES Fi nal Result [facility] [address] [place] [address] * Ferritin, Serum (11/29/2024 8:43 AM EDT) [facility] Ferritin, Serum 28 20 - 400 ng/mL 11/29/2024 10:50 AM EDT [facility] Blood Venous blood specimen / Unknown Venipuncture / Unknown 11/29/2024 8:43 AM EDT 11/29/2024 8:43 AM EDT Debbie Parker Edvin JEWEL LATHE OPERATOR LAB BLOOD ORDERABLES Fi nal Result Performing Organization Address City/[facility]/[place] [address] * POCT glycosylated hemoglobin (Hb A1C) docked device (09/08/2022 5:11 PM EST) [facility] POCT Hemoglobin A1C 6.2 4.4-6.6 % % [facility] Kit Lot Number [id number] [facility] Kit Expiration Date [id number] [facility] Blood Venous blood specimen / Unknown 09/08/2022 5:11 PM EST Edmundo Crane MD POINT OF CARE TEST ENTER/ED IT ORDERABLES Final Result [facility] [address] [place] [address] from Last 3 Months or Most Recently Relevant to Health Maintenance Insurance KYLIE Care Teams Mannequin Mold Maker Relationship Specialty Start Date End Date Edmundo Crane MD [address] [phone] PCP - General 12/07/20
--- OUTSIDE RECORDS SUMMARY | 2025-02-07 07:14 | XMS_ITS | Encounter Summary ---
Author Organization [facility] Address [address] [place] [address] Care Team Providers Care Roll Mill Operator Name Role Phone Edmundo Crane MD Primary Care Provider [phone] Encounter Details Date Type Department Care Team (Latest Contact Info) Description 12/28/2024 Outside Procedure [facility] [address] [place] [address] Reji Kaur MD [address] [place] [address] HUNG (obstructive sleep apnea) (Primary Dx) Social History Tobacco Use Types [...] EDT Appointment Cardiac Imaging [address] [place] [address] 04/13/2025 9:00 AM EDT Office Visit [facility] [address] [place] [address] Reji Kaur MD [address] [place] [address] 10/12/2025 9:00 AM EDT Office Visit [facility] [place] [address], [address] [place] [address] Teodora Saez, CHEMICAL MIXER [address] [place] [address] documented as of this encounter Visit Diagnoses Diagnosis HUNG (obstructive sleep apnea)- Primary Obstructive sleep apnea (adult) (pediatric) documented in this encounter Additional Health Concerns Assessment Noted Time PHQ-9 Depression Total Score: 1 10/15/19 25 8:16 AM EDT A fall risk assessment has been complete d for the patient 12/28/2024 8:12 PM EDT A Body Mass Index follow-up plan has been documented for the patient 12/29/2024 2:13 AM EDT documented as of this encounter Care Teams Roll Mill Operator Relationship Specialty Start Date End Date Edmundo Crane MD [address] [place] [phone] PCP - General 12/07/20 documented as of this encounter
--- OUTSIDE RECORDS SUMMARY | 2025-02-07 07:15 | XMS_ITS | Encounter Summary ---
Author Organization [facility] ([place], [place], [place], [place]) Address [address] [place] [address] Care Team Providers Care High Density Finishing Operator Name Role Phone Fritz Stafford MD Primary Care Provider [phone] Encounter Details Date Type Department Care Team (Latest Contact Info) Description 01/06/2025 Travel Social History Tobacco Use Types Packs/Day Years Used Date Smoking Tobacco: Never Smokeless Tobacco: Former Chew Alcohol Use Standard Drinks/Week Comments Not Currently 0 (1 standard drink = 0.6 oz pur e alcohol) Sex and Gender Information Value Date Recorded Sex Assigned at Not on file Legal Sex Male 9:46 PM CDT Gender Identity Not on file Sexual Orientation Not on file documented as of this encounter Plan of Treatment Not on file documented as of this encounter Visit Diagnoses Not on filedocumented in this encounter Care Teams High Density Finishing Operator Relationship Specialty Start Date End Date Fritz Stafford MD [address] [place] [address] [place] [phone] PCP - General General Internal Medicine 01/06/25 documented as of this encounter
[2025-02-07 07:35] LABS: Hematocrit 47.5 % (42.0-52.0); Hemoglobin 15.1 g/dL (14.1-18.0); Immature Granulocytes % 0.2 %; Mean Corpuscular HGB Conc 31.8 g/dL (31.8-35.4); Mean Corpuscular Hemoglobin 25.9 pg (27.0-31.2); Mean Corpuscular Volume 81.6 fl (80-94); Nucleated Red Blood Cells % 0 %; Platelet Count 294 K/mm3 (142-424); Red Blood Count 5.82 M/mm3 (4.60-6.20); Red Cell Distribution Width-SD 45.7 fL; White Blood Count 6.1 K/mm3 (4.8-10.8)
[2025-02-07 08:28] LABS: Alanine Aminotransferase 39 U/L (12-78); Albumin Level 4.4 g/dl (3.5-5.0); Albumin/Globulin Ratio 1.4 (1.1-1.8); Alkaline Phosphatase 78 U/L (38-126); Anion Gap 15.4 mEq/L (5-15); Aspartate Amino Transferase 34 U/L (17-59); Bilirubin,Total 0.5 mg/dl (0.2-1.3); Blood Urea Nitrogen 18 mg/dl (9-20); Calcium 9.6 mg/dl (8.4-10.2); Carbon Dioxide 25 mmol/L (22.0-30.0); Chloride 102 mmol/L (98-107); Cholesterol 113 mg/dl (140-200); Creatine Kinase 257 U/L (55-170); Creatinine,Serum 1.00 mg/dl (0.66-1.25); Estimated Glomerular Filt Rate 76 ml/min (>60); GFR (African American) 92 ML/MIN (>60); Globulin 3.1 g/dL (1.3-3.2); Glucose 134 mg/dl (74-100); HDL Cholesterol 32 mg/dl (40-60); Potassium 4.4 mmoL/L (3.5-5.1); Sodium 138 mmol/L (136-145); Total Protein,Serum 7.5 g/dl (6.3-8.2)
[2025-02-07 08:43] LABS: Triglycerides 405 mg/dl (30-150)
[2025-02-07 08:58] LABS: Thyroid Stimulating Hormone 2.64 uIU/mL (0.465-4.68)
[2025-02-07 14:15] LABS: Hemoglobin A1C 7.9 % (4.0-6.0)
[2025-02-08 07:26] LABS: Testosterone,Total 182 ng/dL (264-916)
== END 2025-02-07 23:59 | disposition home or self-care (01) ==
LOC: LAB 07:12
PROVIDERS: PCP Internal Medicine; Visit Provider Internal Medicine
DX: E78.5 Hyperlipidemia, unspecified (principal); R73.9 Hyperglycemia, unspecified; M79.10 Myalgia, unspecified site; I10 Essential (primary) hypertension
CPT/HCPCS: 36415; 80053; 80061; 82550; 83036; 84403; 84443; 85025

== ENCOUNTER 2025-05-10 07:03 | Outpatient (CLI) | payer BC, SELFPAY ==
--- OUTSIDE RECORDS SUMMARY | 2024-10-29 17:30 | XMS_ITS ---
Author Organization [facility] Address [address] [facility] [address] [place] [address] Care Team Providers Care Residential Supervisor Name Role Phone Kendall Conde Primary Care Provider Migration, Provider Unavailable Unavailable [facility]IT [facility] Encounter Medications Medication SIG (Take, Route, Frequency, Duration) Notes Start Date End Date Status Vitamin E 400 UNIT 1 cap(s) orally once a day; Duration: 30 day(s) Active Metamucil Smooth Texture 58.6 % as directed orally once a day; Duration: 7 day(s) Active Multivitamin MULTIPLE VITAMINS 1 CAP(S) ORALLY ONCE A DAY *Please review and pick correct strength-formulatio n from Nivelaan options. If intended option is not shown, discontinue and re-order from Quick Search* Active Shanti Allergy 180 MG 1 tab(s) orally once a day Active Aspirin 81 MG 1 TAB(S) ORALLY ONCE A DAY *Please review and pick correct strength-formulatio n from VoxFeedspan options. If intended option is not shown, [...] Active Encounters Encounter Location Date Provider Diagnosis [facility] [address] [place] [address] 10/29/2024 Provider Migration Plan Of Treatment Medication Medication Name Sig Start Date Stop Date Notes IBU 800 MG 1 tab(s) orally 3 ti mes a day; Duration: 30 Progress Notes * Anshul LUCIANO DDOB:[birth year] (59 yo M)Acc No.[id number]:10/29/2024 Patient: Anshul ANGUIANO Provider: Darwin clifton Migration :1965 A ge:59 Y S ex:Male Date:10/29/2024 Address:[address] [place] [address], [place], [id number] Pcp:Kendall Conde Subjective: * Chief Complaints: * [...] *Please review and pick correct strength-formulation from Nivelaan options. If intended option is not shown, discontinue and re-order from Quick Search*, Taking Multivitamin MULTIPLE VITAMINS CAPSULE 1 CAP(S) ORALLY ONCE A DAY , Notes to Pharmacist: *Please review and pick correct strength-formulation from VoxFeedspan options. If intended option is not shown, [...] Electronic signature of Alexx kimble Migration on 05/10/2025 at 07:06 AM EDT Sign off status: Pending * Provider: Darwin clifton Migration Date: 0 10/29/2024 Generated for Renny valiente/Hung/Deny on: 1 07:06 AM EDT
--- OUTSIDE RECORDS SUMMARY | 2025-03-21 14:52 | XMS_ITS | Encounter Summary ---
Author Organization [facility] Address [address] [place] [address] Care Team Providers Care Vp Digital Marketing Name Role Phone Edmundo Crane MD Primary Care Provider [phone] Reason for Referral * Imaging (Routine) - Closed Specialty Diagnoses / Procedures Referred By Ti cardoza Referred To Contact Cardiology Diagnoses HUNG (obstructive sleep apnea) Leg swelling Procedures Echo, Adult Transthoracic Complete Debbie Pardo APRN [address] [place] [address] Phone: tel: fax: Referral ID Status Reason Start Date Expiration Date V isits Requested Visits Authorized [id number] Closed Perform Procedure 01/11/2025 07/13/2026 1 1 Reason for Visit * Imaging (Routine) - Closed Specialty Diagnoses / Procedures Referred By Ti cardoza Referred To Contact Cardiology Diagnoses HUNG (obstructive sleep apnea) Leg swelling Procedures Echo, Adult Transthoracic Complete Debbie Pardo APRN [address] [place] [address] Phone: tel: fax: Referral ID Status Reason Start Date Expiration Date V isits Requested Visits Authorized [id number] Closed Perform Procedure 01/11/2025 07/13/2026 1 1 Encounter Details Date Type Department Care Team (Latest Contact Info) Description 03/21/2025 2:52 PM EDT - 03/21/2025 11:59 PM EDT Hospital Encounter Cardiac Imaging [address] [place] [address] HUNG (obstructive sleep apnea); Leg swelling Discharge Disposition: Home or Self Care Social [...] Sign Reading Time Taken Comments Blood Pressure 127/69 03/21/2025 3:20 PM EDT Pulse 70 03/21/2025 3:20 PM EDT Temperature - - Respiratory Rate - - Oxygen Saturation - - Inhaled Oxygen Concentration - - Weight - - Height - - Body Mass Index - - documented in this encounter Medications at Time of Discharge amLODIPine (Norvasc) 10 MG tabletIndications:Pr imary hypertension Take 1 tablet (10 mg) by mouth daily. 90 tablet 3 10/14/2024 ascorbic acid (vitamin C) 100 MG tabletIndications:Ir on deficiency Take 1 tablet by mouth daily. Please take with Iron supplement. 90 tablet 12/16/2024 aspirin 81 MG EC tablet TAKE 1 TABLET BY MOUTH DAILY 09/07/2020 cholecalciferol (Vitamin D-3) 250 MCG (97818 UT) capsule Take 1 capsule (10,000 Units) by mouth daily. Takes 64674 daily ferrous gluconate (Fergon) 324 (38 Fe) MG [...] time each day at the same time. propranolol LA (Inderal LA) 60 MG 24 [...] tablet as needed for erectile dysfunction. 08/18/2024 testosterone cypionate (Depo-Testosterone) 200 MG/ML injection every 14 (fourteen) days. 09/13/2024 valsartan (Diovan) 320 MG tabletIndications:Pr imary hypertension Take 1 tablet (320 mg) by mouth daily. 90 tablet 3 10/14/2024 6 Vitamin E 180 MG (400 UNIT) capsule 1 (one) time each day at the same time. Evolocumab (Repatha SureClick) 140 MG/ML solution auto-injector Inject 1 mL (140 mg) under the skin every 14 (fourteen) days. 6 mL 1 2024 5 ondansetron ODT (Zofran-ODT) 4 MG disintegrating tabletIndications:Na usea Dissolve 1 tablet on the tongue every 8 hours as needed for nausea or vomiting. 20 tablet 01/14/2025 5 propranolol (Inderal) 10 MG tablet Take 1 tablet (10 mg) by mouth 3 (three) times a day. 90 tablet 11 10/16/2023 5 tamsulosin (Flomax) 0.4 MG 24 hr capsule Take 1 capsule (0.4 mg) by mouth daily. 10/03/2024 documented as of this encounter Plan of Treatment Upcoming Encounters Date Type Department Care Team (Late st Contact Info) Description 08/16/2025 3:00 PM EST Office Visit [facility] Sleep Disorder Center [address] [place] [address] Reji Kaur MD [address] [place] [address] 10/26/2025 12:30 PM EDT Office Visit [facility] [place] [address], [address] [place] [address] Teodora Saez, PHOTOGRAPHER LITHOGRAPHIC [address] [place] [address] documented as of this encounter Procedures Procedure Name Priority Date/Time Associated Diagnosis Comments ECHO, ADULT TRANSTHORACIC COMPLETE W/ 3D Routine 03/21/2025 3:57 PM EDT UHNG (obstructive sleep apnea) Leg swelling documented in this encounter Results * ECHO, ADULT TRANSTHORACIC COMPLETE W/ 3D (03/21/2025 3:57 PM EDT) Height 188.0 TIFF ISCV Weight 110.7 TIFF ISCV BSA 2.36 m2 TIFF ISCV LV EDV (3D HM) 165 mL TIFF ISCV LV ESV (3D HM) 75 mL TIFF ISCV LV EF (3D HM) 55 % TIFF ISCV LVIDd 47 mm TIFF ISCV IVSd 9 mm TIFF ISCV LVPWd 8 mm TIFF ISCV LV MASS(C)D 132 g TIFF ISCV [facility] CV ECHO LV MASS INDEX 56 g/m2 TIFF ISCV LV RWT 0.36 mm TIFF ISCV LVIDs 23 mm TIFF ISCV LA dimension 41 mm TIFF ISCV LVOT diam 19 mm TIFF ISCV LVOT AREA 2.8 cm2 TIFF ISCV LAV(MOD-4ch) 55 mL TIFF ISCV RA MOD 4Ch 49 mL TIFF ISCV KEY 21 mL/m2 TIFF ISCV RV base 37 mm TIFF ISCV RV Mid 35 mm TIFF ISCV RV Length 86 mm TIFF ISCV LAV(MOD-bp) Indexed 24 mL/m2 TIFF ISCV LAV(MOD-2ch) 58 mL TIFF ISCV TAPSE 25 mm TIFF ISCV RV s' Yann 12.9 cm/s TIFF ISCV PA acc time 140 msec TIFF ISCV mean PAP 16 mmHg TIFF ISCV PA NM(ACCEL) 14.0 mmHg TIFF ISCV PA acc slope 389.6 cm/s2 TIFF ISCV Ao Root Diam 31 mm TIFF ISCV Asc Ao Diam 27 mm TIFF ISCV IVC Max Size 18 mm TIFF ISCV MV E Vmax 75.7 cm/s TIFF ISCV MV A Vmax 84.2 cm/s TIFF ISCV MV E/A 0.9 cm/s TIFF ISCV LV Lat e' Velocity 13.1 cm/s TIFF ISCV Lat E/e' 5.8 TIFF ISCV LV Sept e' Yann 9.2 cm/s TIFF ISCV Sep E/e' 8.2 TIFF ISCV Avg E/e' 7.0 TIFF ISCV MPA diam 18 mm TIFF ISCV MPA area 2.5 cm2 TIFF ISCV Anatomical Region Laterality Modality Echocardiography Narrative 03/21/2025 5:31 PM EDT Left Ventricle: The left ventricular systolic function is normal. The LVEF as measured by Heart Model 3D volume is 55%. The diastolic function is normal. The left ventricular filling pressure is normal. No regional wall motion abnormalities are seen. Right Ventricle: The right ventricular systolic function is normal. The spectral Doppler envelope of TR is not adequate for calculating the right ventricular systolic pressure (RVSP). Based upon other 2D and Doppler features, the RVSP is probably normal or at most mildly elevated. IVC/SVC: Based on the IVC size and respiratory variation, the estimated right atrial pressure is 3mmHg. All cardiac valves were reasonably well interrogated with 2D imaging and/or Doppler assessment and no significant valve regurgitation or stenosis is seen. There is no recent study available for direct [id number] comparison. Left Ventricle Based on the linear dimension and/or 2D volumes, the left ventricle is normal in size. There is normal left ventricular myocardial thickness and mass. The left ventricular systolic function is normal. The LVEF as measured by Heart Model 3D volume is 55%. The diastolic function is normal. The left ventricular filling pressure is normal. No regional wall motion abnormalities are seen. Right Ventricle The right ventricle is normal in size. The right ventricular systolic function is normal. The spectral Doppler envelope of TR is not adequate for calculating the right ventricular systolic pressure (RVSP). Based upon other 2D and Doppler features, the RVSP is probably normal or at most mildly elevated. Left Atrium The left atrial size is normal with an indexed volume of 16-34 mL/m2. The interatrial septum is intact with no evidence for an atrial septal defect. Normal flow patterns in the pulmonary veins. Right Atrium The right atrial volume index is normal (18-32mL/m2). IVC/SVC Based on the IVC size and respiratory variation, the estimated right atrial pressure is 3mmHg. Mitral Valve There is mild posterior mitral annular calcification. There is no mitral regurgitation. There is no mitral stenosis. Tricuspid Valve The tricuspid valve is normal in appearance. There is no tricuspid regurgitation. There is no tricuspid stenosis. Aortic Valve The aortic valve appears to be trileaflet. There is no valvular regurgitation. There is no hemodynamically significant valvular aortic stenosis. Pulmonic Valve The pulmonic valve was not well visualized. There is no pulmonic regurgitation. There is no pulmonic stenosis. Pericardium No pericardial effusion. Great Vessels The aortic root is normal in size. The sinus of Valsalva (aortic root) diameter is 31 mm by leading edge to leading edge method. In the maximally visualized portion, the ascending aorta appears normal in size. The ascending aorta diameter is 27 mm. In the maximally visualized portion, the aortic arch appears normal in size. The main pulmonary artery is normal in size. The main pulmonary artery diameter is 18 mm. Study Details A complete transthoracic echocardiogram using two-dimensional (2D), m-mode, color and spectral flow Doppler and 3D imaging was performed. Height: 188.0 cm. Weight: 110.7 kg. BSA: 2.36 m2. Study Recommendation All cardiac valves were reasonably well interrogated with 2D imaging and/or Doppler assessment and no significant valve regurgitation or stenosis is seen. There is no recent study available for direct [id number] comparison. Debbie Pardo PHOTOGRAPHER LITHOGRAPHIC CV ECHO PROCEDURES Denae l Result documented in this encounter Visit Diagnoses Diagnosis HUNG (obstructive sleep apnea) Obstructive sleep apnea (adult) (pediatric) Leg swelling Swelling of limb documented in this encounter Additional Health Concerns Assessment Noted Time PHQ-9 Depression Total Score: 1 10/15/19 8:16 AM EDT A fall risk assessment has been complete d for the patient 01/11/2025 8:53 AM EDT A Body Mass Index follow-up plan has been documented for the patient 01/15/2025 6:19 PM EDT documented as of this encounter Care Teams Vp Digital Marketing Relationship Specialty Start Date End Date Edmundo Crane MD [address] [address] PCP - General 12/07/20 04/26/25 documented as of this encounter
--- OUTSIDE RECORDS SUMMARY | 2025-05-03 13:40 | XMS_ITS | Encounter Summary ---
Author Organization [facility] Address [address] [place] [address] Care Team Providers Care Power Regulator Name Role Phone Fritz Stafford MD Primary Care Provider [phone] Reason for Referral * Consultation (Routine) - Authorized Specialty Diagnoses / Procedures Referred By Ti cardoza Referred To Contact Diagnoses Hypersomnia Reji Kaur MD [address] [address] Phone: tel: fax: Referral ID Status Reason Start Date Expiration Date V isits Requested Visits Authorized [id number] Authorized 05/03/2025 11/02/2026 1 1 * Medications - Authorized Specialty Diagnoses / Procedures Referred By Ti cardoza Referred To Contact Diagnoses Hypersomnia Reji Kaur MD [address] [address] Phone: tel: fax: Referral ID Status Reason Start Date Expiration Date V isits Requested Visits Authorized [id number] Authorized 04/04/2025 05/04/2026 1 1 * Imaging (Routine) - Pending Review Specialty Diagnoses / Procedures Referred By Ti cardoza Referred To Contact Radiology Diagnoses Alteration in neurologic function Procedures MR Head w and wo IV Contrast Reji Kaur MD [address] [facility] [address] [place] [address] Phone: tel: fax: Referral ID Status Reason Start Date Expiration Date V isits Requested Visits Authorized [id number] Pending Review 05/03/2025 11/02/2026 1 1 Reason for Visit * Reason Comments Follow-up * Consultation (Routine) - Closed Specialty Diagnoses / Procedures Referred By Contac t Referred To Contact Diagnoses HUNG (obstructive sleep apnea) Debbie Pardo, INDUSTRIAL COFFEE GRINDER [address] [place] [address] Phone: tel: fax: Referral ID Status Reason Start Date Expiration Date Visits Re quested Visits Authorized [id number] Closed 01/11/2025 07/13/2026 1 1 Encounter Details Date Type Department Care Team (Late st Contact Info) Description 05/03/2025 1:40 PM EDT Office Visit [facility] [address] [place] [address] Reji Kaur MD [id number] [place] [address] Hypersomnia (Primary Dx); Alteration in neurologic function; HUNG (obstructive sleep apnea) Social History Tobacco [...] Sign Reading Time Taken Comments Blood Pressure 128/76 05/03/2025 1:18 PM EDT Pulse 73 05/03/2025 1:18 PM EDT Temperature - - Respiratory Rate - - Oxygen Saturation 95% 05/03/2025 1:18 PM EDT Inhaled Oxygen Concentration - - Weight 106 kg (232 lb 12.9 oz) 05/03/2025 1:18 P M EDT Height 188 cm (6' 2 ) 05/03/2025 1:18 PM EDT Body Mass Index 29.89 05/03/2025 1:18 PM EDT documented in this encounter Miscellaneous Notes * Patient Instructions - Reji Kaur MD - 05/03/2025 1:40 PM EDT MRI brain ordered Modafinil 100mg daily ordered Please discuss with PCP if any contraindications prior to starting It, including discussing potential interaction with PDE5 inhibitors (cialis) Please contact clinic if adverse effects occur. If any serious allergic or dermatologic reaction, stop and call EMS Excess Daytime Sleepiness Counseling: -Recommend maintaining safety (never swim alone or without a lifejacket, avoid heights, caution with power tools, knives and other sharp/dangerous/heavy objects). -Never drive drowsy. -Maintain a routine bed and wake time. -May schedule a nap in the afternoon, no more than 30-60 minutes. -Counseled importance of natural outdoor exposure during the morning or light box therapy (10,000 lux) upon awakening or as needed throughout the day. -Avoid carbohydrates (including sodas) as they can precipitate hypersomnolence. -Maintaining ideal body weight since obesity contributes to sleepiness. -Counseled on importance of daily exercise to help achieve/maintain ideal body weight. Sleep Clinic Instructions --pursue good sleep hygiene including maintaining a strict sleep schedule, avoiding naps and avoiding electronics at bedtime. - limit the use of alcohol and sedating medications; control nasal congestion; and continue effortsat weight management. -Please use PAP therapy all night, every night, and with naps. -Always inform surgeon/anesthesiologist about diagnosis of HUNG -The recommended amount for continued insurance coverage is at least 4 hours of usage on at least 70% of the nights. We recommend to use his device all night every night, to clean device at regular intervals, and obtain new mask, filter, and tubing supplies every 3-6 months. (https://www.thoracic.org/patients/patient-resources/resources/wmo-ustp-wwz-hipolito partida.pdf) -Do NOT drive, operate machinery, or participate in potentially hazardous activities if sleepy -Use caution with opioid pain medication, alcohol, other PAEDIATRIC SURGEON depressants (and to notify their prescriber of presence of HUNG) -Continue to regularly follow up with PCP and other specialists for management of other medical problems. SAFE DRIVING TIPS 1. Make sure you get enough sleep (7-8 hours) prior to driving especially long distances. 2. Know when you are too sleepy to drive and pull off the road to take a nap: - When you cannot recall the last few miles driven. - When you cannot stay in your chris. - When you are inadvertently tailgating. - When your eyes feel heavy. - When your thoughts are drifting. 3. Avoid driving during your normal sleep time. 4. Don 't drive after alcohol consumption or after taking sedating medications. 5. Avoid long driving periods. Take a break from driving every 2 hours or every 100 miles. 6. Be careful driving around daylight savings time or if you are driving in a different time zone. You may be more sleepy than usual to drive. EDUCATIONPAP Education on Positive Airway Pressure (PAP) therapy: 1. To receive the best therapeutic value of PAP therapy which may reduce the severity of other diseases such as hypertension, diabetes, heart disease, and stroke, use your PAP device during continuous sleeping periods averaging 7-8 hours/ night. 2. Clean PAP device regularly as directed. 3. Avoid excessive alcohol consumption or sedating medications which may worsen sleep apnea. 4. If you feel you need to skip a night of using PAP therapy, avoid sleeping on your back or elevate the head of the bed. 5. Contact our office if you experience nighttime coughing, difficulty breathing, chest discomfort,bloating, residual snoring, excessive dry mouth, awakenings of unknown reasons, or excessive daytime sleepiness. Your PAP device may need to be adjusted. 6. Contact our office if you gain or lose more than 15 lbs. since your last visit. Your PAP device may need to be adjusted. 7. Contact our office if you have any problems using you PAP device on a nightly basis. Sleep hygiene It is important to maintain optimal sleep habits and provided these suggestions: Maintain a regular sleep-wake schedule; avoid caffeine, alcohol, nicotine, and other chemicals thatinterfere with sleep; create a bedroom environment that is comfortable; adopt calming pre-sleep routines; do not watch the clock at night; increase outdoor light during the day and limit light exposure in the evening; do not nap too close to your regular bedtime; Advised getting out of bed if unable to sleep >15-20 minutes. avoid heavy meals within 3 hours of bedtime; and exercise regularly as tolerated, but not too soon before bedtime. Could keep a journal to record intrusive thoughts. * Progress Notes - Reji Kaur MD - 05/03/2025 1:40 PM EDT SLEEP MEDICINE Visit Type: Established patient Previously seen by UNIQUE Pardo History obtained from prior notes and current patient history. SINDI Luciano is a 59 y.o. male with history of hypertension, hyperlipidemia, established patientwho presents today for follow up for obstructive sleep apnea and excess daytime sleepiness HST on 06/19/2024 using the 3% rule. The monitoring time was 461.5 min which was adequate for interpretation. It showed moderate obstructive sleep apnea with a MARY of 20.3 events/hour. The lowest desaturation was to 79%. Patient underwent CPAP titration, 12/28/2024, and ideal pressure found to be at 16 cm H2O. There were intermittent PLMS and is on iron supplements. He notes persistent excess daytime sleepiness, ongoing several years worse over past few months, even though he is on CPAP Denies any focal weakness, numbness, vision changes or changes in memory or cognition. No transientfocal neurologic symptoms. TTE in Feb 2025 showed normal EF-55% with no clear evidence of CHF Patient notes has seen there is a mask leak Patient using FFM, changing mask out regularly. Patient denies any issues with pressure. Goes to bed about 10 pm, falls asleep quickly wakes up about 4-5 pm No naps Denies leg twitching at night. Denies sleep paralysis, sleep walking, dream enactment, cataplexy, hypnagogic hallucinations, bruxism, or jaw pain. Denies symptoms suggestive of restless legs syndrome. Denies any numbness tingling, weakness, vision changes. DME: [employer] ESS: 22 PAP Data Card Download Data card download: 30 days 03/27/2025 to 04/25/2025 Total usage: 100% >4 hour compliance: 90% Average use (days used): 5 hours 43 min Setting: CPAP 16 cm H2O 95th percentile leak: 49.3 L/min, max leak 62.4 L/min Residual AHI: 4.1 oAHI (apnea plus hypopnea): 0.4 cAHI: 0 Past Medical History[1] Surgical History[2] [...] injectable, preservative free 06/16/2024 Moderna COVID-19 Vaccine (Child Development Teacher) 12+ years 10/25/2021 Moderna Covid-19 Vaccine 12y+, Tahir Protein, Preservative free 05/07/2023 Bullhorn COVID-19 Vaccine (Purple Cap) 12+ 08/09/2020, 08/09/2020, 08/31/2020, 08/31/2020, 04/26/2021, 04/26/2021 Pneumococcal Conjugate PCV 13 12/07/2020, 12/07/2020 Tdap 01/07/2019 Zoster, Recombinant 12/07/2020, 12/07/2020, 06/11/2021 The following portions of the chart were reviewed this encounter and updated as appropriate: ROS Constitutional: No significant changes in weight Resp: No abnormal cough or shortness of breath Cardiac: No chest pain, palpitations Psych: No changes in mood Objective Visit Vitals BP 128/76 (BP Location: Right arm, Patient Position: Sitting, BP Cuff Size: Adult long) Pulse 73 Height and Weight Height: 188 cm (6' 2 ) Weight: 106 kg (232 lb 12.9 oz) BSA (Calculated - sq m): 2.35 sq meters BMI (Calculated): 29.88 Weight in (lb) to have BMI = 25: 194.3 Oxygen Therapy SpO2: 95 % List of [employer] Medical Equipment [employer]: xxxxx [employer] Medical: xxxx Physical Exam Physical Exam: Verbal consent taken prior to examination: CONSTITUTIONAL: Well appearing in no apparent distress; The patient does appear obese. Auscultation limited due to body habitus EYES: Anicteric, conjunctivae clear; no ptosis; PERRLA THROAT/MOUTH: Lips and mucosa are normal. RESPIRATORY: Work of breathing appears normal; CTA b/l CARDIAC: RRR S1S2+. No clear murmurs GI: NTND BS+ PSYCHIATRIC: Mood appears good; affect is normal MUSCULOSKELETAL:The patient is sitting comfortable upright in chair NEURO: The patient is alert, speech is fluent, and the patient has a good fund of knowledge. Cranial Nerve Exam: CN III, IV, : Extraocular movements are intact CN VII: Face-symmetrical CN VIII: Hearing-grossly intact Sensation intact to light touch in b/l UL and LL Power: 5/5 in bilateral upper and lower limbs Assessment/Plan Problem List Items Addressed This Visit None 59 y.o. male with history of hypertension, hyperlipidemia, established patient who presents today for follow up for obstructive sleep apnea and excess daytime sleepiness HUNG, moderate MARY 20.3 events/hr -Well controlled on current CPAP settings 16 cm H2O. Excellent compliance with CPAP therapy and denies any problems with pressure. CPAP-Nightly usage advised and also during naps Excess Daytime Sleepiness Etiology unclear Persists after treatment of obstructive sleep apnea Likely EDS even after treatment of HUNG Will obtain brain MRI to evaluate for secondary etiology of sleepiness. Will start patient on Modafinil 100mg. Advised to contact clinic if adverse effects occur. Advised discussing with PCP if any contraindications prior to starting It, including discussing potential interaction with PDE5 inhibitors (cialis) While central disorders of hypersomnolence are an option, less likely given age- group and unclear advantage of MSLT as will delay management of Modafinil attempt. Counseling Documentation (Provided in person and/or on check out) : Sleep Clinic Instructions --pursue good sleep hygiene including maintaining a strict sleep schedule, avoiding naps and avoiding electronics at bedtime. - limit the use of alcohol and sedating medications; control nasal congestion; and continue effortsat weight management. -Please use PAP therapy all night, every night, and with naps. -Always inform surgeon/anesthesiologist about diagnosis of HUNG -The recommended amount for continued insurance coverage is at least 4 hours of usage on at least 70% of the nights. We recommend to use his device all night every night, to clean device at regular intervals, and obtain new mask, filter, and tubing supplies every 3-6 months. (https://www.thoracic.org/patients/patient-resources/resources/osa-ptik-fiq-hipolito helga.pdf) -Do NOT drive, operate machinery, or participate in potentially hazardous activities if sleepy -Use caution with opioid pain medication, alcohol, other PAEDIATRIC SURGEON depressants (and to notify their prescriber of presence of HUNG) -Continue to regularly follow up with PCP and other specialists for management of other medical problems. Excess Daytime Sleepiness Counseling: -Recommend maintaining safety (never swim alone or without a lifejacket, avoid heights, caution with power tools, knives and other sharp/dangerous/heavy objects). -Never drive drowsy. -Maintain a routine bed and wake time. -May schedule a nap in the afternoon, no more than 30-60 minutes. -Counseled importance of natural outdoor exposure during the morning or light box therapy (10,000 lux) upon awakening or as needed throughout the day. -Avoid carbohydrates (including sodas) as they can precipitate hypersomnolence. -Maintaining ideal body weight since obesity contributes to sleepiness. -Counseled on importance of daily exercise to help achieve/maintain ideal body weight. Time Spent: I personally spent a total of 40 minutes on this encounter. This time includes face to face with patient, counseling and discussion and/or coordination of care. Reji Kaur MD [1] Past Medical History: Diagnosis Date Deficiency [...] Date COLON SURGERY N/A Colon Surgery from [employer] ROTATOR CUFF REPAIR Right 03/31/2023 WISDOM TOOTH EXTRACTION N/A [place] tooth extraction from [employer] [3] Family History Problem Relation Name Age of Onset Pulmonary embolism Mother Coronary artery disease Father Colon cancer Maternal Grandfather NELSON Santoyo Cancer Maternal Grandfather NELSON Santoyo Conversions - Other Paternal Grandfather History of nephrectomy Heart failure Other Coronary artery disease Other Anesthesia problems Neg Hx Malig Hyperthermia Neg Hx [4] Current Outpatient Medications Medication Sig Dispense Refill amLODIPine (Norvasc) 10 MG tablet Take 1 tablet (10 mg) by mouth daily. (Patient taking differently: Take 0.5 tablets by mouth daily.) 90 tablet 3 ascorbic acid (vitamin C) 100 MG tablet Take 1 tablet by mouth daily. Please take with Iron supplement. 90 tablet 0 aspirin 81 MG EC tablet TAKE 1 TABLET BY MOUTH DAILY Evolocumab (Repatha SureClick) 140 MG/ML solution auto-injector autoinjector Inject 1 mL under the skin every 14 days. 6 mL 1 ferrous gluconate (Fergon) 324 (38 Fe) MG tablet Take 1 tablet by mouth daily with breakfast. 90 tablet 0 fexofenadine (Shanti) 180 MG tablet Take 1 tablet (180 mg) by mouth daily. metFORMIN (Glucophage) 500 MG tablet Take 1 tablet by mouth 2 times a day with meals. Multiple Vitamin (multivitamin) tablet Take 1 tablet by mouth daily. One a day psyllium (Metamucil Smooth Texture) 58.6 % powder 1 (one) time each day at the same time. sildenafil (Viagra) 100 MG tablet Take 1 [...] time each day at the same time. cholecalciferol (Vitamin D-3) 250 MCG (21053 UT) capsule Take 1 capsule (10,000 Units) by mouth daily. Takes 61798 daily (Patient not taking: Reported on 01/14/2025) multivitamin with minerals (Centrum) 9-200 mg-mcg tablet split tablet 1 (one) time each day at the same time. (Patient not taking: Reported on 05/03/2025) ondansetron ODT (Zofran-ODT) 4 MG disintegrating tablet Dissolve 1 tablet on the tongue every 8 hours as needed for nausea or vomiting. 20 tablet 0 propranolol (Inderal) 10 MG tablet Take 1 tablet (10 mg) by mouth 3 (three) times a day. (Patient not taking: Reported on 01/14/2025) 90 tablet 11 propranolol LA (Inderal LA) 60 MG 24 hr capsule Take 1 capsule (60 mg) by mouth daily. Do not crush, chew, or split. (Patient not taking: Reported on 01/14/2025) 90 capsule 3 tamsulosin (Flomax) 0.4 MG 24 hr capsule Take 1 capsule (0.4 mg) by mouth daily. (Patient not taking: Reported on 01/14/2025) No current facility-administered medications for this visit. [5] Allergies Allergen Reactions Iodinated Contrast Media Other - please document in the comment field documented in this encounter Plan of Treatment Upcoming Encounters Date Type Department Care Team (Late st Contact Info) Description 08/16/2025 3:00 PM EST Office Visit [facility] [address] [place] [address] Reji Kaur MD [address] [place] [address] 10/26/2025 12:30 PM EDT Office Visit [facility] [place] [address] [facility], [address] [place] [address] Teodora Saez W, INDUSTRIAL COFFEE GRINDER [address] [place] [address] Scheduled Orders Name Type Priority Associated Diagnoses Orde r Schedule MR Head w and wo IV Contrast Imaging Routine Alteration in neurologic function Expected: 05/03/2025 (Approximate), Expires: 11/04/2026 Scheduled Referrals Name Type Priority Associated Diagnoses Orde r Schedule Follow Up Sleep Medicine Outpatient Referral Routine Hypersomnia Expected: 08/03/2025, Expires: 11/04/2026 documented as of this encounter Visit Diagnoses Diagnosis Hypersomnia- Primary Hypersomnia, unspecified Alteration in neurologic function HUNG (obstructive sleep apnea) Obstructive sleep apnea (adult) (pediatric) documented in this encounter Additional Health Concerns Assessment Noted Time PHQ-9 Depression Total Score: 1 10/15/19 25 8:16 AM EDT A fall risk assessment has been complete d for the patient 01/11/2025 8:53 AM EDT A Body Mass Index follow-up plan has been documented for the patient 05/08/2025 10:39 AM EDT documented as of this encounter Care Teams Power Regulator Relationship Specialty Start Date End Date Fritz Stafford MD [address] [place] [address] PCP - General 04/27/25 documented as of this encounter
--- OUTSIDE RECORDS SUMMARY | 2025-05-10 07:06 | XMS_ITS | Encounter Summary ---
Author Organization [facility] Address [address] [place] [address] Care Team Providers Care Recreational Vehicle Repairer Name Role Phone Fritz Stafford MD Primary Care Provider [phone] Encounter Details Date Type Department Care Team (Latest Contact Info) Description 05/09/2025 Travel Social History Tobacco Use Types Packs/Day [...] Description 08/16/2025 3:00 PM EST Office Visit [facility] Sleep Disorder Center [address] [place] [address] Reji Kaur MD [address] [place] [address] 10/26/2025 12:30 PM EDT Office Visit [facility] [place] [address] [facility] [place] [address] Teodora Saez, PROP AND SCENERY MAKER [address] [place] [address] documented as of this encounter [...] documented as of this encounter Care Teams Recreational Vehicle Repairer Relationship Specialty Start Date End Date Fritz Stafford MD [address] [facility] [address] [place] [address] PCP - General 04/27/25 documented as of this encounter
--- OUTSIDE RECORDS SUMMARY | 2025-05-10 07:06 | XMS_ITS | Encounter Summary ---
Author Organization [facility] Address [address] [place] [address] Care Team Providers Care Tangled Yarn Worker Name Role Phone Edmundo Crane MD Primary Care Provider [phone] Hamlet Zaldivar MD Unavailable [phone] Fritz Stafford MD Primary Care Provider [phone] Reason for Visit * Reason Comments Med Refill Encounter Details Date Type Department Care Team (Late st Contact Info) Description 11/12/2021 Refill [facility] [place] [address] [facility], [address] [place] [address] Brittaney Ivan, JHOAN [address] [place] [address] Social History Tobacco Use Types [...] Description 08/16/2025 3:00 PM EST Office Visit [facility] [address] [place] [address] Reji Kaur MD [address] [place] [address] 10/26/2025 12:30 PM EDT Office Visit [facility] [place] [address] [facility], [address] [place] [address] Teodora Saez, BUFFING MACHINE OPERATOR [address] [place] [address] documented as of this encounter Visit Diagnoses Not on filedocumented in this encounter Additional Health Concerns Infection Onset Date Last Indicated Resolved Time COVID-19 Rule-Out 01/14/2025 01/14/2025 01/14/2025 7:10 PM EDT Assessment Noted Time A fall risk assessment has been complete d for the patient 04/05/2021 3:33 PM EDT documented as of this encounter Care Teams Tangled Yarn Worker Relationship Specialty Start Date End Date Edmundo Crane MD [address] [place] [address] PCP - General 12/07/20 04/26/25 Hamlet Zaldivar MD [address] [place] [address] PCP - Resident Internal Medicine 06/11/21 03/03/24 Fritz Stafford MD [address] [facility] [address] [place] [address] (work) PCP - General 04/27/25 documented as of this encounter
--- OUTSIDE RECORDS SUMMARY | 2025-05-10 07:06 | XMS_ITS | Encounter Summary ---
Author Organization [facility] Address [address] [place] [address] Care Team Providers Care Cupola Tapper Name Role Phone Fritz Stafford MD Primary Care Provider [phone] Encounter Details Date Type Department Care Team (Latest Contact Info) Description 05/03/2025 Travel Social History Tobacco Use Types Packs/Day [...] Description 08/16/2025 3:00 PM EST Office Visit [facility] [address] [place] [address] Reji Kaur MD [address] [place] [address] 10/26/2025 12:30 PM EDT Office Visit [facility] [place] [address] [facility], [address] [place] [address] Teodora Saez, RESPIRATORY MEDICINE PHYSICIAN [address] [place] [address] documented as of this encounter [...] documented as of this encounter Care Teams Cupola Tapper Relationship Specialty Start Date End Date Fritz Stafford MD [address] [facility] [address] [place] [address] PCP - General 04/27/25 documented as of this encounter
--- OUTSIDE RECORDS SUMMARY | 2025-05-10 07:06 | XMS_ITS | Clinical Summary ---
[facility] Organization [facility] Address [address] [place] [address] Care Team Providers Care Food Order Expediter Name Role Phone Provider, No Known Primary Care Provider Unavail able Social History Tobacco Use Types Packs/Day Years Used Date Smoking Tobacco: Never Assessed Abuse Screen Answer Date Recorded Unsafe at Home or Work/School Not on file Feels Threatened by Someone? Not on file 04/2023 Does Anyone Keep You from Co ntacting Others or Doint Things Outside the Home? Not on file 05/05/2023 Physical Sign of Abuse Present Not on file 1 Housing Stability Answer Date Recorded Current Living Arrangements Not on file 04/26 Potentially Unsafe Housing Conditions Not on beau e 05/05/2023 Family and Community Support Answer Giovany e Recorded Help with Day-to-Day Activities Not on file 05/05/2023 Lonely or Isolated Not on file 05/05/2023 Employment Answer Date Recorded Do you want help finding or keeping work or a nathan b? Not on file 05/05/2023 Disabilities Answer Date Recorded Concentrating, Remembering, or Making Decisions Difficulty Not on file 05/05/2023 Doing Errands Independently Difficulty Not on fi le 05/05/2023 Education Answer Date Recorded Help with school or training? Not on file Preferred Language Not on file 05/05/2023 Sex and Gender Information Value Date Recorded Sex Assigned at Not on file Legal Sex Male 1:54 PM EDT Gender Identity Not on file Sexual Orientation Not on file Plan of Treatment Health Maintenance Due Date Last Done Comments ANNUAL PHYSICAL 1965 HEPATITIS C SCREENING 1965 TDAP/TD VACCINES (1 - Tdap) 10/16/1982 COLOGUARD 10/16/2008 COLON CANCER SCREENING 5 YEAR SIGMOIDOSCOPY 10/16/2008 COLONOSCOPY 10/16/2008 COLORECTAL CANCER SCREENING 10/16/2008 CT COLONOGRAPHY 10/16/2008 FECAL OCCULT BLOOD TEST 10/16/2008 FIT Testing (1 year) 10/16/2008 Pneumococcal Vaccine 50+ (1 of 1 - PCV) 10/16/2013 ZOSTER VACCINE (1 of 2) 10/16/2013 INFLUENZA VACCINE 02/24/2025 Care Teams Food Order Expediter Relationship Specialty Start Date End Date Provider, No Known [facility] [place] [address] PCP - General 03/08/15
--- OUTSIDE RECORDS SUMMARY | 2025-05-10 07:06 | XMS_ITS | Clinical Summary ---
Author Organization [facility] Address [address] [place] [address] Care Team Providers Care Consulting Practice Manager Name Role Phone Fritz Stafford MD Primary Care Provider [phone] Allergies Active Allergy Reactions Criticality Noted Date Comments Iodinated Contrast Media Other - please document in the comment field Low 08/09/2024 Medications aspirin 81 MG EC tablet TAKE 1 TABLET BY MOUTH DAILY 09/07/19 21 Active psyllium (Metamucil Smooth Texture) 58.6 % powder 1 (one) time each day at the same time. Active Vitamin E 180 MG (400 UNIT) capsule 1 (one) time each day at the same time. Active multivitamin with minerals (Centrum) 9-200 mg-mcg tablet split tablet 1 (one) time each day at the same time. Active cholecalciferol (Vitamin D-3) 250 MCG (78286 UT) capsule Take 1 capsule (10,000 Units) by mouth daily. Takes 85743 daily Active Multiple Vitamin (multivitamin) tablet Take 1 tablet by mouth daily. One a day Active fexofenadine (Shanti) 180 MG tablet Take 1 tablet (180 mg) by mouth daily. Active tadalafil (Cialis) 10 MG tablet as needed for erectile dysfunction. 08/18/19 25 Active testosterone cypionate (Depo-Testosterone ) 200 MG/ML injection every 14 (fourteen) days. 09/13/19 25 Active amLODIPine (Norvasc) 10 MG tabletIndications: Primary hypertension Take 1 tablet (10 mg) by mouth daily. 90 tablet 3 10/15/19 25 026 Active Additional Information Patient taking differently: 5 mgOral Daily, Reported on 05/03/2025 propranolol LA (Inderal LA) 60 MG 24 hr capsuleIndications :Primary hypertension Take 1 capsule (60 mg) by mouth daily. Do not crush, chew, or split. 90 capsule 3 10/15/19 25 026 Active Additional Information Patient not taking.Reported on 01/14/2025 valsartan (Diovan) 320 MG tabletIndications: Primary hypertension Take 1 tablet (320 mg) by mouth daily. 90 tablet 3 10/15/19 25 026 Active sildenafil (Viagra) 100 MG tabletIndications: Drug-induced erectile dysfunction Take 1 tablet (100 mg) by mouth daily as needed for erectile dysfunction. 10 tablet 3 10/15/19 25 Active ferrous gluconate (Fergon) 324 (38 Fe) MG tabletIndications: Other fatigue,Iron deficiency Take 1 tablet by mouth daily with breakfast. 90 tablet 12/17/19 25 Active ascorbic acid (vitamin C) 100 MG tabletIndications: Iron deficiency Take 1 tablet by mouth daily. Please take with Iron supplement. 90 tablet 12/17/19 25 Active Evolocumab (Repatha SureClick) 140 MG/ML solution auto-injector autoinjector Inject 1 mL under the skin every 14 days. 6 mL 1 03/31/20 25 Active metFORMIN (Glucophage) 500 MG tablet Take 1 tablet by mouth 2 times a day with meals. 04/09/20 25 Active modafinil (Provigil) 100 MG tabletIndications: Hypersomnia Take 1 tablet by mouth daily. 30 tablet 05/03/20 25 025 Active propranolol (Inderal) 10 MG tablet Take 1 tablet (10 mg) by mouth 3 (three) times a day. 90 tablet 11 10/16/19 24 025 Discontinu ed(Per Patient Report) tamsulosin (Flomax) 0.4 MG 24 hr capsule Take 1 capsule (0.4 mg) by mouth daily. 10/04/19 25 025 Discontinu ed(Per Patient Report) ondansetron ODT (Zofran-ODT) 4 MG disintegrating tabletIndications: Nausea Dissolve 1 tablet on the tongue every 8 hours as needed for nausea or vomiting. 20 tablet 01/15/20 25 025 Discontinu ed(Per Patient Report) Active Problems Problem Noted Date Diagnosed Date [...] Encounters Date Type Department Care Team Description 05/09/2025 Travel 05/03/2025 1:40 PM EDT Office Visit [facility] Sleep Disorder Center [address] [place] [address] Reji Kaur MD Hypersomnia (Primary Dx); Alteration in neurologic function; HUNG (obstructive sleep apnea) 05/03/2025 Travel 04/27/2025 Travel 04/10/2025 Travel 04/03/2025 Telephone [facility] [address] [place] [address] Goldy Kaye 03/31/2025 Refill [facility] [address] [place] [address] Teodora Saez, COURT ATTENDANT 03/23/2025 Results Follow-Up [facility] Sleep Disorder [place] [address] [place] [address] Debbie Pardo, COURT ATTENDANT 03/21/2025 2:52 PM EDT - 03/21/2025 11:59 PM EDT Hospital Encounter [facility] [address] [place] [address] HUNG (obstructive sleep apnea); Leg swelling Discharge Disposition: Home or Self Care 03/21/2025 Travel 03/14/2025 Travel from Last 3 Months Immunizations Immunization Administration Dates Next Due Hep A, Adult 09/17/2019,01/07/2019 Influenza, injectable, quadrivalent 06/16/2018,1 08/02/2016 Influenza, injectable, quadr ivalent, preservative free 05/07/2023,06/11/2021,05/31/2019 Influenza, recombinant, quad rivalent, injectable, preservative free 05/24/2020 Influenza, seasonal, injectable 06/26/2020,06/26 Influenza, seasonal, injecta ble, preservative free 06/16/2024 Moderna COVID-19 Vaccine (Re d Cap) 12+ years 10/25/2021 [facility] COVID-19 Vac cine (Purple Cap) 12+ 04/26/2021,04/26/2021,08/31/2020,2020,08/09/2020,08/09/2020 Pneumococcal Conjugate PCV 13 12/07/2020, 021 Tdap 01/07/2019 Zoster, Recombinant 06/11/2021,12/07/2020,2020 Family History Medical History Relation Name Comments Coronary artery disease Father Cancer Maternal Grandfather NELSON Santoyo Colon cancer Maternal Grandfather NELOSN Santoyo Pulmonary embolism Mother Heart failure Other [...] Pulse 73 05/03/2025 1:18 PM EDT Temperature 37 C (98.6 F) 01/14/2025 6:37 PM EDT Respiratory Rate 14 01/14/2025 6:37 PM EDT Oxygen Saturation 95% 05/03/2025 1:18 PM EDT Inhaled Oxygen Concentration - - Weight 106 kg (232 lb 12.9 oz) 05/03/2025 1:18 P M EDT Height 188 cm (6' 2 ) 05/03/2025 1:18 PM EDT Body Mass Index 29.89 05/03/2025 1:18 PM EDT Plan of Treatment Upcoming Encounters Date Type Department Care Team (Late st Contact Info) Description 08/16/2025 3:00 PM EST Office Visit [facility] Sleep Disorder Center [address] [place] [address] Reji Kaur MD [address] [place] [address] 10/26/2025 12:30 PM EDT Office Visit [facility] [place] [address] [facility], [address] [place] [address] Teodora Saez, COURT ATTENDANT [address] [place] [address] Health Maintenance Due Date Last Done Comments [facility]-HIV Screening 1965 [facility]-Hepatitis C Screening 1965 [facility]-Infant/Child/Adol SDOH Screenings 1965 [facility]- SDOH Screenings 10/16/1981 [facility]-Adult SDOH Screenings 10/16/1981 CT Colonography 10/16/2008 Colonoscopy 10/16/2008 FIT-DNA 10/16/2008 FIT 10/16/2008 FOBT 10/16/2008 Sigmoidoscopy 10/16/2008 [facility]-Colorectal Cancer Screening 10/16/2008 [facility]-Pneumococcal Vaccine: 50+ Years (2 of 2 - PCV20 or PCV21) 12/07/2021 12/07/2020, 12/07/2020 [facility]-RSV Vaccine: 60+ Years or (1 - Risk 60-74 years 1-dose series) 2023 [id number] Vaccine (2024- season) 2025 05/07/2023, 10/25/2021, 04/26/2021, Additional history exists [facility]-Influenza [...] 09/08/2022, 01/31/2022, 12/06/2020 [facility]-Obesity Intervention Completed 025, 01/15/2025, 01/14/2025, Additional history exists Dental Oral Exam Discontinued [...] this topic Medical Devices Implanted Type Area Executive Assistant To General Counsel Device Identifier Shelf Expiration Date Model / Serial / Lot [place] All Suture Qfix 1.8mm - [id number] - [id number] Implanted:Qty : 1 on 04/03/2023 by Ryan Garza MD at [facility] [place] Right: Shoulder [employer] (Acufex)-[id number] 02/06/2026 / / [id number] [place] Ultra Twinfix 5.5 - [id number] - [id number] Implanted:Qty : 1 on 04/03/2023 by Ryan Garza MD at [facility] [place] Right: Shoulder [employer] (Acufex)-[id number] 11/30/2027 [id number] / [id number] / [id number] Procedures Procedure Name Priority Date/Time Associated Diagnosis Comments ECHO, ADULT TRANSTHORACIC COMPLETE W/ 3D Routine 03/21/2025 3:57 PM EDT HUNG (obstructive sleep apnea) Leg swelling POCT GLYCOSYLATED HEMOGLOBIN (HGB A1C) Routine 09/08/2022 5:11 PM EST Annual physical exam from Last 3 Months or Most Recently Relevant to Health Maintenance Results * ECHO, ADULT TRANSTHORACIC COMPLETE W/ 3D (03/21/2025 3:57 PM EDT) Height 188.0 TIFF ISCV Weight 110.7 TIFF ISCV BSA 2.36 m2 TIFF ISCV LV EDV (3D HM) 165 mL TIFF ISCV LV ESV (3D HM) 75 mL TIFF ISCV LV EF (3D HM) 55 % TIFF ISCV LVIDd 47 mm TFIF ISCV IVSd 9 mm TIFF ISCV LVPWd [...] mean PAP 16 mmHg TIFF ISCV PA WY(ACCEL) 14.0 mmHg TIFF ISCV PA acc slope [...] is no recent study available for direct wake-li-wdgl comparison. Left Ventricle Based on the linear [...] is no recent study available for direct lmga-ac-ghua comparison. Debbie Pardo COURT ATTENDANT CV ECHO PROCEDURES Denae l Result * POCT glycosylated hemoglobin (Hb A1C) docked device (09/08/2022 5:11 PM EST) POCT Hemoglobin A1C 6.2 4.4-6.6 % % [facility] Kit Lot Number [id number] [facility] Kit Expiration Date [id number] HEALTHCARE [facility] Blood Venous blood specimen / Unknown 09/08/2022 5:11 PM EST Edmundo Crane MD POINT OF CARE TEST ENTER/ED IT ORDERABLES Final Result [facility] [address] [place] [address] from Last 3 Months or Most Recently Relevant to Health Maintenance Insurance KYLIE Care Teams Consulting Practice Manager Relationship Specialty Start Date End Date Fritz Stafford MD [address] [place] [address] [address] [place] [address] PCP - General 04/27/25
--- OUTSIDE RECORDS SUMMARY | 2025-05-10 07:06 | XMS_ITS | Encounter Summary ---
Author Organization [facility] Address [address] [place] [address] Care Team Providers Care Railway Yard Assistant Name Role Phone Fritz Stafford MD Primary Care Provider [phone] Encounter Details Date Type Department Care Team (Latest Contact Info) Description 04/27/2025 Travel Social History Tobacco Use Types Packs/Day [...] Description 08/16/2025 3:00 PM EST Office Visit [facility] Sleep Disorder Center [address] [place] [address] Reji Kaur MD [address] [place] [address] 10/26/2025 12:30 PM EDT Office Visit [facility] [place] [address] [facility], [address] [place] [address] Teodora Saez, BOILER OPERATOR HELPER [address] [place] [address] documented as of this encounter [...] documented as of this encounter Care Teams Railway Yard Assistant Relationship Specialty Start Date End Date Fritz Stafford MD [address] [facility] [address] [place] [address] PCP - General 04/27/25 documented as of this encounter
--- OUTSIDE RECORDS SUMMARY | 2025-05-10 07:06 | XMS_ITS | Encounter Summary ---
Author Organization [facility] Address [address] [place] [address] Care Team Providers Care Prototype Engineer Manager Name Role Phone Edmundo Crane MD Primary Care Provider [phone] Hamlet Zaldivar MD Unavailable [phone] Fritz Stafford MD Primary Care Provider [phone] Reason for Visit * Reason Comments Med Refill Encounter Details Date Type Department Care Team (Late st Contact Info) Description 07/15/2021 Refill [facility] [place] [address] [facility] [place] [address] Brittaney Ivan, JHOAN [address] [place] [address] Social History Tobacco Use Types Packs/Day Years [...] 08/16/2025 3:00 PM EST Office Visit [facility] Sleep Disorder Center [address] [place] [address] Reji Kaur MD [address] [place] [address] 10/26/2025 12:30 PM EDT Office Visit [facility] [place] [address] [facility], [address] [place] [address] Teodora Saez, CLEANER LABORATORY EQUIPMENT [address] [place] [address] documented as of this encounter Visit Diagnoses Not on filedocumented in this encounter Additional Health Concerns Infection Onset Date Last Indicated Resolved Time COVID-19 Rule-Out 01/14/2025 01/14/2025 01/14/2025 7:10 PM EDT Assessment Noted Time A fall risk assessment has been complete d for the patient 04/05/2021 3:33 PM EDT documented as of this encounter Care Teams Prototype Engineer Manager Relationship Specialty Start Date End Date Edmundo Crane MD [address] [facility] [address] [place] [address] PCP - General 12/07/20 04/26/25 Hamlet Zaldivar MD [address] [place] [address] PCP - Resident Internal Medicine 06/11/21 03/03/24 Fritz Stafford MD [address] [facility] [address] [place] [address] PCP - General 04/27/25 documented as of this encounter
--- OUTSIDE RECORDS SUMMARY | 2025-05-10 07:06 | XMS_ITS | Patient Health Record ---
Author Organization [facility] Address [address] [place] [address] [place] [address] Care Team Providers Care Communications Analyst Name Role Phone Donal Condehen Primary Care Provider Migration, Provider Unavailable Unavailable Allergies No Known [...] review and pick correct strength-formulatio n from [employer]an options. If intended option is not shown, discontinue and re-order from Quick Search* Active Shanti Allergy 180 MG 1 tab(s) orally once a day Active Atorvastatin Calcium 40 MG 1 tab(s) orally once a day; Duration: 30 day(s) Active Aspirin 81 MG 1 TAB(S) ORALLY ONCE A DAY *Please review and pick correct strength-formulatio n from [employer]an options. If intended option is not shown, [...] Risk Notes Problem Episodic tension-typ e headache (346615345) Episodic tension-type headache, not intractable (G44.219) Active confirmed Problem Essential hypertension (14850824) Essential (primary) hypertension (I10) Active confirmed Problem Arthropathy (121780998) Arthropathy, unspecified (M12.9) Active confirmed Problem Obstructive sleep apnea syndrome (75818378) HUNG (obstructive sleep apnea) (G47.33) Active confirmed Problem Diverticular disease of colon (889651708) Diverticulosis of large intestine without hemorrhage (K57.30) Active confirmed Problem Mixed hyperlipidemia (863014218) Hyperlipemia, mixed (E78.2) Active confirmed Problem Perforated diverticulum of large intestine (288435220) Diverticulitis of large intestine with perforation without bleeding (K57.20) Active confirmed Problem Familial hypercholesterolemia (211772733) Familial hypercholesterolemia (E78.01) Active confirmed Encounters Encounter Location Date Provider Diagnosis [facility] [address] [place] [address] [facility] [address] [place] [address] 10/29/2024 Provider Migration Plan Of Treatment Pending [...]
--- OUTSIDE RECORDS SUMMARY | 2025-05-10 07:07 | XMS_ITS | Encounter Summary ---
Author Organization [facility] Address [address] [place] [address] Care Team Providers Care Painter Ski Edge Name Role Phone Edmundo Crane MD Primary Care Provider [phone] Fritz Stafford MD Primary Care Provider [phone] Encounter Details Date Type Department Care Team (Late st Contact Info) Description 03/23/2025 Results Follow-Up [facility] Sleep Disorder Center [address] [place] [address] Debbie Pardo APRN [address] [place] [address] Social History Tobacco Use Types [...] Description 08/16/2025 3:00 PM EST Office Visit [facility] Sleep Disorder Center [address] [place] [address] Reji Kaur MD [address] [place] [address] 10/26/2025 12:30 PM EDT Office Visit [facility] [place] [address] [facility], [address] [place] [address] Teodora Saez, FOUNDRY MOLDER [address] [place] [address] documented as of this encounter [...] documented as of this encounter Care Teams Painter Ski Edge Relationship Specialty Start Date End Date Edmundo Crane MD [address] [place] [address] PCP - General 12/07/20 04/26/25 Fritz Stafford MD [address] [facility] [address] [place] [address] PCP - General 04/27/25 documented as of this encounter
--- OUTSIDE RECORDS SUMMARY | 2025-05-10 07:07 | XMS_ITS | Clinical Summary ---
Author Organization [employer] ([place], [place], [place], [place]) Address [address] [place] [address] Care Team Providers Care Electric Refrigerator Preparer Name Role Phone Fritz Stafford MD Primary Care Provider Allergies No known active allergies Medications No known medications Immunizations Immunization Administration Dates Next Due Tdap 01/06/2025 Social [...] Pneumococcal 50+ years (2 of 2 - PCV20 or PCV21) 12/07/2021 12/07/2020 COVID-19 VACCINE (6 - 2024-2 6 season) 2025 05/07/2023, 10/25/2021, 04/26/2021, Additional history exists Influenza Vaccine (#1) 2025 05/24/2020 Tobacco Cessation Counseling and Screening (12+) 01/06/2026 01/06/2025 DTAP/TDAP/TD VACCINES (3 - T d or Tdap) 01/06/2035 01/06/2025, 01/07/2019 Respiratory Syncytial Virus (RSV) Adult or (1 - 1-dose 75+ series) 10/16/2038 Shingles Vaccine (Zoster) Completed 06/11/2021, Insurance BLUE CROSS/BLUE SHIELD Care Teams Electric Refrigerator Preparer Relationship Specialty Start Date End Date Fritz Stafford MD [address] [place] [address] [place] [address] PCP - General General Internal Medicine 01/06/25
--- OUTSIDE RECORDS SUMMARY | 2025-05-10 07:07 | XMS_ITS | Encounter Summary ---
Author Organization [facility] Address [address] [address] Care Team Providers Care Milled Rubber Tender Name Role Phone Edmundo Crane MD Primary Care Provider [phone] Encounter Details Date Type Department Care Team (Late st Contact Info) Description 04/03/2025 Telephone [facility] [address] [place] [address] Goldy Kaye Social History Tobacco Use Types Packs/Day Years [...] 3:00 PM EST Office Visit [facility] Sleep Disorder Center [address] [place] [address] Reji Kaur MD [address] [place] [address] 10/26/2025 12:30 PM EDT Office Visit [facility] [place] [address] [facility], [address] [place] [address] Teodora Saez, HEALTH SERVICES DIRECTOR [address] [place] [address] documented as of this encounter [...] documented as of this encounter Care Teams Milled Rubber Tender Relationship Specialty Start Date End Date Edmundo Crane MD [address] [place] [address] PCP - General 12/07/20 04/26/25 documented as of this encounter
--- OUTSIDE RECORDS SUMMARY | 2025-05-10 07:07 | XMS_ITS | Data Portability ---
Author Organization [facility] [place] [place] [facility] Address [address] [place] [address] Assessment No assessment recorded. Plan of Treatment Reminders Order Date Submit Date Provider Last Modified By Organization Details Last Modified Time Details Appointments None recorded. Lab urinalysis , dipstick [address], [address], 5 13:58:34 HbA1c (hemoglobi n A1c), blood [address], [address], 5 14:07:08 urinalysis , dipstick [address], [address], 4 13:40:30 urinalysis , dipstick [address], [address], 3 16:55:08 Referral None recorded. Procedures None recorded. Surgeries None recorded. Imaging None recorded. Medication Orders None recorded. Patient TargetsNo targets recorded. Patient Instructions Encounter Date Encounter Id Patient Instructions Last Modified By Organization Details Last Modified Time 03/07/2025 [id number] visual acuity* [email or web address] Not available 03/07/2025 15:42:25 Reason for Referral None Reported. Results Created Date Observation Date Name Description Value Unit Range Abnormal Flag Note LastModifiedBy Organization Detail LastModifiedTime 04/01/20 23 04/01/2023 urina lysis , dipst ick Leukocytes Negati ve Not Available [address], [address], 04/01/2023 16:18:38 04/01/20 23 04/01/2023 urina lysis , dipst ick Nitrite negati ve Not Available [address], [address], 04/01/2023 16:18:38 04/01/20 23 04/01/2023 urina lysis , dipst ick Urobilinogen .2 Not Available [address], [address], 04/01/2023 16:18:38 04/01/20 23 04/01/2023 urina lysis , dipst ick Protein Negati ve Not Available [address], [address], 04/01/2023 16:18:38 04/01/20 23 04/01/2023 urina lysis , dipst ick pH 7.0 Not Available [address], [address], 04/01/2023 16:18:38 04/01/20 23 04/01/2023 urina lysis , dipst ick Blood Negati ve Not Available [address], [address], 04/01/2023 16:18:38 04/01/20 23 04/01/2023 urina lysis , dipst ick Specific [place] 1.020 Not Available [address], [address], 04/01/2023 16:18:38 04/01/20 23 04/01/2023 urina lysis , dipst ick Ketone Negati ve Not Available [address], [address], 04/01/2023 16:18:38 04/01/20 23 04/01/2023 urina lysis , dipst ick Bilirubin Negati ve Not Available [address], [address], 04/01/2023 16:18:38 04/01/20 23 04/01/2023 urina lysis , dipst ick Glucose Negati ve Not Available [address], [address], 04/01/2023 16:18:38 04/01/20 23 04/01/2023 urina lysis , dipst ick Appearance Clear Not Available [address], [address], 04/01/2023 16:18:38 04/01/20 23 04/01/2023 urina lysis , dipst ick Color Yellow Not Available [address], [address], 04/01/2023 16:18:38 03/14/20 24 03/14/2024 urina lysis , dipst ick Leukocytes Negati ve Not Available [address], [address], 03/14/2024 13:15:42 03/14/20 24 03/14/2024 urina lysis , dipst ick Nitrite negati ve Not Available [address], [address], 03/14/2024 13:15:42 03/14/20 24 03/14/2024 urina lysis , dipst ick Urobilinogen .2 Not Available [address], [address], 03/14/2024 13:15:42 03/14/20 24 03/14/2024 urina lysis , dipst ick Protein Negati ve Not Available [address], [address], 03/14/2024 13:15:42 03/14/20 24 03/14/2024 urina lysis , dipst ick pH 6.0 Not Available [address], [address], 03/14/2024 13:15:42 03/14/2003/14/2024 urina lysis , dipst ick Blood Negati ve Not Available [address], [address], 03/14/2024 13:15:42 03/14/20 24 03/14/2024 urina lysis , dipst ick Specific [place] 1.030 Not Available [address], [address], 03/14/2024 13:15:42 03/14/20 24 03/14/2024 urina lysis , dipst ick Ketone Negati ve Not Available [address], [address], 03/14/2024 13:15:42 03/14/20 03/14/2024 urina lysis , dipst ick Bilirubin Negati ve Not Available [address], [address], 03/14/2024 13:15:42 03/14/20 24 03/14/2024 urina lysis , dipst ick Glucose Negati ve Not Available [address], [address], 03/14/2024 13:15:42 03/14/20 24 03/14/2024 urina lysis , dipst ick Appearance Clear Not Available [address], [address], 03/14/2024 13:15:42 03/14/20 24 03/14/2024 urina lysis , dipst ick Color Dark Yellow Not Available [address], [address], 03/14/2024 13:15:42 03/07/20 25 03/07/2025 HbA1c (hemo globi n A1c), blood HbA1c 6.4 Not Available [address], [address], 03/07/2025 13:58:33 03/07/20 25 03/07/2025 urina lysis , dipst ick Leukocytes Negati ve Not Available [address], [address], 03/07/2025 10:14:42 03/07/20 25 03/07/2025 urina lysis , dipst ick Nitrite negati ve Not Available [address], [address], 03/07/2025 10:14:42 03/07/2003/07/2025 urina lysis , dipst ick Urobilinogen .2 Not Available [address], [address], 03/07/2025 10:14:42 03/07/20 25 03/07/2025 urina lysis , dipst ick Protein 2000+ Not Available [address], [address], 03/07/2025 10:14:42 03/07/20 25 03/07/2025 urina lysis , dipst ick pH 6.5 Not Available [address], [address], 03/07/2025 10:14:42 03/07/20 25 03/07/2025 urina lysis , dipst ick Blood Large Not Available [address], [address], 03/07/2025 10:14:42 03/07/2003/07/2025 urina lysis , dipst ick Specific [place] 1.030 Not Available [address], [address], 03/07/2025 10:14:42 03/07/2003/07/2025 urina lysis , dipst ick Ketone Negati ve Not Available [address], [address], 03/07/2025 10:14:42 03/07/2003/07/2025 urina lysis , dipst ick Bilirubin Negati ve Not Available [address], [address], 03/07/2025 10:14:42 03/07/20 25 03/07/2025 urina lysis , dipst ick Glucose 2000+ Not Available [address], [address], 03/07/2025 10:14:42 03/07/20 25 03/07/2025 urina lysis , dipst ick Appearance Clear Not Available [address], [address], 03/07/2025 10:14:42 03/07/20 25 03/07/2025 urina lysis , dipst ick Color Dark Yellow Not Available [address], [address], 03/07/2025 10:14:42 Result Notes None recorded. Problems Name Problem SNOMED Code Status Onset Date Resolution Date Notes Provider Name and Address Organization Details Recorded Time Body mass index 30+ - obesity 774372911 Active 025 Kristin Fung APRN [address] [place], [address] , [facility] [employer] 15:26:13 Problem Notes None recorded. Medical Equipment None Reported. Medications Name Sig Start Date Stop Date Status Note LastModified by Organization Details LastModified Time mucus er 600mg tab TAKE 1 TO 2 TABLETS BY MOUTH TWICE DAILY NEEDED FOR CONGESTIO N 03/07 completed Not Available Not Available Not Available amoxicillin 500 mg capsule TAKE 2 CAPSULES BY MOUTH TWICE DAILY 03/07 completed Not Available Not Available Not Available doxycycline hyclate 100 mg capsule 04/01 completed Not Available Not Available Not Available azithromyci n 250 mg tablet TAKE 2 TABLETS BY MOUTH ON DAY 1, AND THEN TAKE 1 TABLET BY MOUTH ONCE A DAY ON DAY 2 THROUGH DAY 5 03/07 completed Not Available Not Available Not Available ibuprofen 800 mg tablet 04/01 completed Not Available Not Available Not Available propranolol ER 60 mg capsule,24 hr,extended release active Not Available Not Available Not Available acetaminoph en 500 mg tablet 08/12 /2025 completed Not Available Not Available Not Available propranolol 10 mg tablet active Not Available Not Available Not Available tamsulosin 0.4 mg capsule TAKE 1 CAPSULE BY MOUTH ONCE DAILY AT BEDTIME NIGHTLY active Not Available Not Available No t Available amlodipine 10 mg tablet once daily active Not Available Not Available No t Available benzonatate 100 mg capsule TAKE 1 CAPSULE BY MOUTH THREE TIMES DAILY NEEDED FOR COUGH 03/07 completed Not Available Not Available Not Available valsartan 320 mg tablet active Not Available Not Available Not Available testosteron e cypionate 200 mg/mL intramuscul ar oil INJECT 1 ML INTRAMUSC ULARLY EVERY TWO WEEKS active Not Available Not Available No t Available ibuprofen 600 mg tablet 03/07 completed Not Available Not Available Not Available methylpredn isolone 4 mg tablets in a dose pack TAKE BY MOUTH DIRECTED ON INSIDE OF PACKAGE 03/07 completed Not Available Not Available Not Available ondansetron 4 mg disintegrat ing tablet 03/07 completed Not Available Not Available Not Available fluticasone propionate 50 mcg/actuati on nasal spray,suspe nsion 04/01 completed Not Available Not Available Not Available Sudogest 60 mg tablet 04/01 completed Not Available Not Available Not Available amoxicillin 875 mg-potassiu m clavulanate 125 mg tablet 04/01 completed Not Available Not Available Not Available oxycodone 5 mg tablet 03/07 completed Not Available Not Available Not Available Asprin Ec Low Dose 81 mg tablet,glendy yed release Take 1 tablet every day by oral route. active Not Available Not Available No t Available tadalafil 10 mg tablet TAKE 1 TABLET BY MOUTH ONCE DAILY NEEDED FOR SEXUAL ACTIVITY ADMINISTE R APPROXIMA TELY 30MIN BEFORE SEXUAL ACTIVITY. DO NOT USE MORE THAN 1 DOSE IN 24 HRS. active Not Available Not Available No t Available Repatha Syringe 140 mg/mL subcutaneou s syringe 03/07 completed Not Available Not Available Not Available Repatha SureClick 140 mg/mL subcutaneou s [...] and Address Organization Details Last Updated DateTime 5 189.23 cm 30.2 kg/m2 890094. 86 g 97.8 [degF] 77 /min 93 % 93 % 127/67 mm[Hg] [facility] [employer] 5 13:48:29 Date Recorded Body height Body mass index (BMI) Body weight Body temperature Heart rate Oxygen saturation Oxygen saturation in Arterial blood by Pulse oximetry Systolic And Diastolic Provider Name and Address Organization Details Last Updated DateTime 4 189.23 cm 28.9 kg/m2 751131. 34 g 98 [degF] 66 /min 94 % 94 % 124/70 mm[Hg] [facility] [employer] 4 13:14:59 Date Recorded Body height Body mass index (BMI) Body weight Body temperature Heart rate Oxygen saturation Oxygen saturation in Arterial blood by Pulse oximetry Systolic And Diastolic Systolic And Diastolic Provider Name and Address Organization Details Last Updated DateTime 3 189.23 cm 28.3 kg/m2 428655. 97 g 97.9 [degF] 70 /min 97 % 97 % 141/73 mm[Hg] 135/81 mm[Hg] Liliane Suarez [employer] 3 16:23:46 Social History Question Answer Notes LastModified by Organizat ion Details LastModified Time Tobacco Smoking Status Never Smoker Liliane Suarez payton [employer]. 04/01/2023 16:13:57 Is Your Home Air Conditioned? [...] Date Of Your Most Recent Tobacco Screening? 03/07/2025 [email or web address] Information not available 03/07/2025 Have You Ever Been Counseled For Unhealthy [...] not available 04/01/2023 Are you able to walk independently without assistance or assistive devices? YESWOREST Information not available 04/01/2023 Do you have difficulty doing errands alone? No Information not available 04/01/2023 Are you able to care for yourself independently? Yes Information not available 04/01/2023 Do you have difficulty dressing, bathing, grooming, or toileting? No Information not available 04/01/2023 Mental Status Question Answer Note LastModified by Organization D etails LastModified Time Do you have difficulty concentrating, remembering or making decisions? No Information no t available 04/01/2023 Family History Nothing Reported. Medical History No medical history recorded. Immunizations Vaccine Type Date Status Note Provider Nam e and Address Organization Details Recorded Time Influenza, split virus, quadrivalent, preservative 7 completed Not Available [facility] 03/07/2025 13:19:15 Influenza, split virus, quadrivalent, preservative 8 completed Not Available [facility] 03/07/2025 13:19:15 Tdap 9 completed Not Available [facility] 03/07/2025 13:19:15 Hep A, adult 9 completed Not Available [facility] 03/07/2025 13:19:15 Influenza, split virus, quadrivalent, PF 9 completed Not Available [facility] 03/07/2025 13:19:15 Hep A, adult 0 completed Not Available [facility] 03/07/2025 13:19:15 Influenza, recombinant, quadrivalent, PF 0 completed Not Available [facility] 03/07/2025 13:19:15 Influenza, split virus, trivalent, preservative 0 completed Not Available [facility] 03/07/2025 13:19:15 COVID-19, mRNA, LNP-S, PF, 30 mcg/0.3 mL dose 1 completed Not Available [facility] 03/07/2025 13:19:15 COVID-19, mRNA, LNP-S, PF, 30 mcg/0.3 mL dose 1 completed Not Available [facility] 03/07/2025 13:19:15 zoster recombinant 1 completed Not Available [facility] 03/07/2025 13:19:15 Pneumococcal conjugate PCV 13 1 completed Not Available [facility] 03/07/2025 13:19:15 COVID-19, mRNA, LNP-S, PF, 30 mcg/0.3 mL dose 1 completed Not Available [facility] 03/07/2025 13:19:15 zoster recombinant 1 completed Not Available [facility] 03/07/2025 13:19:15 Influenza, split virus, quadrivalent, PF 1 completed Not Available [facility] 03/07/2025 13:19:15 COVID-19, mRNA, LNP-S, PF, 100 mcg/0.5mL dose or 50 mcg/0.25mL dose 2 completed Not Available [facility] 03/07/2025 13:19:15 COVID-19, mRNA, LNP-S, PF, 50 mcg/0.5 mL 3 completed Not Available [facility] 03/07/2025 13:19:15 Influenza, split virus, quadrivalent, PF 3 completed Not Available [facility] 03/07/2025 13:19:15 Influenza, split virus, trivalent, PF 4 completed Not Available [facility] 03/07/2025 13:19:15 Tdap 5 completed Not Available [facility] 03/07/2025 13:19:15 Past Encounters Encounter ID Performer Location Encounter Start Date Encounter Closed Date Diagnosis/Indication Diagnosis SNOMED-CT Code Diagnosis ICD10 Code Diagnosis IMO Codes Diagnosis Note [id number] Kristin Fung [facility] [address] [place] [phone] 04/01/2023 15:48:00 04/02/2023 07:50:02 [employer] De[employer] license medical examination [id number] Z02.4 CDL medical exam approved for 1 year. Please see exam packet for full details of exam. No restrictio ns were given. [id number] Kristin Fung [facility] [address] [place] [phone] 03/14/2024 12:46:28 03/14/2024 16:33:30 [employer] license medical examination [id number] Z02.4 CDL medical exam approved for 1 year. Please see exam packet for full details of exam. Restricted to wearing corrective lenses. Body mass index 25-29 - overweight 835637498 Z68.28 [id number] Kristin Fung APRN [address] [phone] 03/07/2025 13:18:32 03/07/2025 14:25:31 [employer] license medical examination [id number] Z02.4 [id number] CDL medical exam approved for 1 year. Please see exam packet for full details of exam. Body mass index 30+ - obesity 211259823 E66.9 [id number] Health Concerns Section Related Observation LastModified by [...] or cardiovascular disease. Kristin Fung APRN [address] [place], [address], [employer] 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 He has stable hypertension and hyperlipidemia. He has no absolute disqualifying conditions or medications. No history of diabetes, seizures or loss of consciousness, or cardiovascular disease. Kristin Fung APRN [address] [place], [address], [employer] 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 He has stable hypertension, DM2, and hyperlipidemia. He has no absolute disqualifying conditions or medications. No history of seizures or loss of consciousness, or cardiovascular disease.He has HUNG and uses CPAP - compliance report reviewed. Kristin Fung APRN [address] [facility], [place], [address], [facility] [employer] 03/07/2025 15:26:39
--- OUTSIDE RECORDS SUMMARY | 2025-05-10 07:07 | XMS_ITS | Clinical Summary ---
Author Organization [facility] Address [address] [facility] [address] [place] [address] Phone Care Team Providers Care Hospital Orderly Name Role Phone Status, Fax Unavailable Conditions or Problems Problem Name Problem Code Onset Date Status Entry Date Provider Comment Standard Description Annotate Abnormal Liver Function Tests 977319977 (SNOMED CT) 03/01 Active 03/01 Leonardo Dillon MD Liver function tests outside reference range DIVERTICULITIS OF COLON 595543991 (SNOMED CT) 02/23 Active 02/23 Augustareji Fernández Diverticulitis of colon LAYLA INFECTION B37.89 (ICD-10-CM ) 02/23 Active 02/23 Augusta Fernández Other sites of candidiasis GROUP D STREP ENTEROCOCCUS INFECTION B95.4 (ICD-10-CM ) 02/19 Active 02/19 Augusta Fernández Other streptococcus as the cause of diseases classified elsewhere INTRA-ABDOMINAL ABSCESS K65.1 (ICD-10-CM ) 02/19 Active 02/19 Augusta Fernández Peritoneal abscess ACUTE PERITONITIS 69764254 (SNOMED CT) 02/19 Active 02/19 Augusta Pradeep Acute peritonitis Medications Medication Instructions Start Date Stop Date Generic Name [facility] Provider ASPIRIN LOW DOSE 81 MG ORAL TABLET po qd 9 ASPIRIN 86816886917 Leonardo Dillon MD DILIP ALLERGY 180 MG TABS po qd 9 FEXOFENADINE HCL 45479687862 Leonardo Dillon MD SIMCOR [id number] Unknown Dose 9 NIACIN-SIMVASTAT IN [id number] Leonardo Dillon MD Medications Administered No information [...] smoker Tobacco smoking status Lab Report: Comprehensive Ar tabolic Panel ANIONGAP 11 mmol/L 3-11 N [...] Procedures Code Procedure Name Date Entry Date CPT-84552 [facility] CPT-36721 [facility] A5779k,[id number] CBC with Differential 2014 Vital Signs Date [...]
--- OUTSIDE RECORDS SUMMARY | 2025-05-10 07:07 | XMS_ITS | Referral Summary ---
Author Organization [employer] ([place], [place], [place], [place]) Address [address] [place] [address] Care Team Providers Care Cat Wagon Operator Name Role Phone Fritz Stafford MD Primary Care Provider [phone] Allergies No known active allergies Medications No [...] EDT Plan of Treatment Not on file Insurance BLUE CROSS/BLUE SHIELD Care Teams Cat Wagon Operator Relationship Specialty Start Date End Date Fritz Stafford MD [address] [place] [address] PCP - General General Internal Medicine 01/06/25
--- OUTSIDE RECORDS SUMMARY | 2025-05-10 07:07 | XMS_ITS | Encounter Summary ---
Author Organization [facility] Address [address] [place] [address] Care Team Providers Care Magazine Hand Name Role Phone Edmundo Crane MD Primary Care Provider [phone] Encounter Details Date Type Department Care Team (Latest Contact Info) Description 04/10/2025 Travel Social History Tobacco Use Types Packs/Day [...] Description 08/16/2025 3:00 PM EST Office Visit [facility] [address] [place] [address] Reji Kaur MD [address] [place] [address] 10/26/2025 12:30 PM EDT Office Visit [facility] [place] [address] [facility], [address] [place] [address] Teodora Saez, STRIPPER OPAQUER [address] [place] [address] documented as of this encounter [...] documented as of this encounter Care Teams Magazine Hand Relationship Specialty Start Date End Date Edmundo Crane MD [address] [address] PCP - General 12/07/20 04/26/25 documented as of this encounter
--- OUTSIDE RECORDS SUMMARY | 2025-05-10 07:07 | XMS_ITS | Encounter Summary ---
Author Organization [facility] Address [address] [place] [address] Care Team Providers Care Utility Sales And Service Manager Name Role Phone Edmundo Crane MD Primary Care Provider [phone] Encounter Details Date Type Department Care Team (Late Contact Info) Description 01/15/2025 Results Follow-Up [facility] [address] [place] [address] Krista Rudd, CELL REPAIRER [address] [facility] [address] [place] [address] Social History Tobacco Use Types [...] Description 08/16/2025 3:00 PM EST Office Visit [facility] [address] [place] [address] Reij Kaur MD [address] [place] [address] 10/26/2025 12:30 PM EDT Office Visit [facility] [place] [address] [facility], [address] [place] [address] Teodora Saez, CELL REPAIRER [address] [place] [address] documented as of this encounter [...] documented as of this encounter Care Teams Utility Sales And Service Manager Relationship Specialty Start Date End Date Edmundo Crane MD [address] [place] [address] PCP - General 12/07/20 04/26/25 documented as of this encounter
--- OUTSIDE RECORDS SUMMARY | 2025-05-10 07:08 | XMS_ITS | Encounter Summary ---
Author Organization [facility] Address [address] [place] [address] Care Team Providers Care Customs Opener Verifier Packer Name Role Phone Edmundo Crane MD Primary Care Provider [phone] Encounter Details Date Type Department Care Team (Latest Contact Info) Description 03/14/2025 Travel Social History Tobacco Use Types Packs/Day [...] Description 08/16/2025 3:00 PM EST Office Visit [facility] Sleep Disorder Center [address] [place] [address] Reji Kaur MD [address] [place] [address] 10/26/2025 12:30 PM EDT Office Visit [facility] [place] [address] [facility], [address] [place] [address] Teodora Saez, APPLIED ANTHROPOLOGIST [address] [place] [address] documented as of this encounter [...] documented as of this encounter Care Teams Customs Opener Verifier Packer Relationship Specialty Start Date End Date Edmundo Crane MD [address] [address] PCP - General 12/07/20 04/26/25 documented as of this encounter
--- OUTSIDE RECORDS SUMMARY | 2025-05-10 07:08 | XMS_ITS | Encounter Summary ---
Author Organization [facility] Address [address] [place] [address] Care Team Providers Care Computer Operations Specialist Name Role Phone Edmundo Crane MD Primary Care Provider [phone] Reason for Visit * Reason Onset Date Comments Med Refill 03/31/2025 Encounter Details Date Type Department Care Team (Late st Contact Info) Description 03/31/2025 Refill [facility] G Personnel Psychologist [address] [place] [address] Teodora Saez W, CHOKE REAMER [address] [place] [address] Social History Tobacco Use Types Packs/Day Years [...] 08/16/2025 3:00 PM EST Office Visit [facility] [address] [place] [address] Reji Kaur MD [address] [place] [address] 10/26/2025 12:30 PM EDT Office Visit [facility] [place] [address] [facility], [address] [place] [address] Teodora Saez, CHOKE REAMER [address] [place] [address] documented as of this encounter [...] documented as of this encounter Care Teams Computer Operations Specialist Relationship Specialty Start Date End Date Edmundo Crane MD [address] [place] [address] PCP - General 12/07/20 04/26/25 documented as of this encounter
--- OUTSIDE RECORDS SUMMARY | 2025-05-10 07:08 | XMS_ITS | Encounter Summary ---
Author Organization [facility] Address [address] [place] [address] Care Team Providers Care Collision Technician Name Role Phone Edmundo Crane MD Primary Care Provider [phone] Encounter Details Date Type Department Care Team (Latest Contact Info) Description 03/21/2025 Travel Social History Tobacco Use Types Packs/Day [...] Center [address] [place] [address] Reji Kaur MD [address] [place] [address] 10/26/2025 12:30 PM EDT Office Visit [facility] [place] [address], [address] [place] [address] Teodora Saez, MINE GEOLOGIST [address] [place] [address] documented as of this encounter [...] documented as of this encounter Care Teams Collision Technician Relationship Specialty Start Date End Date Edmundo Crane MD [address] [address] PCP - General 12/07/20 04/26/25 documented as of this encounter
[2025-05-11 08:14] LABS: Testosterone,Total 785 ng/dL (264-916)
== END 2025-05-10 23:59 | disposition home or self-care (01) ==
LOC: LAB 07:05
PROVIDERS: PCP Internal Medicine; Visit Provider Internal Medicine
DX: R79.89 Other specified abnormal findings of blood chemistry (principal)
CPT/HCPCS: 36415; 84403